=== PATIENT | female | born 1935 | race Caucasian/White ===

== ENCOUNTER 2016-08-25 12:52 | Inpatient (IN) | payer MEDICARE, OTHER ==
[~2016-08-25 12:52] MED LIST: ROCURONIUM BROMIDE INJ 50 MG/5 ML VIAL IV ONE
[2016-08-25] MEDS ORDERED: ACETAMINOPHEN 325 MG TABLET PO PRN (13:15)
[2016-08-25] MEDS ORDERED: IPRATROPIUM/ALBUTEROL 0.5-2.5 MG/3 ML AMPUL NEB ONE (13:21)
[2016-08-25] MEDS ORDERED: CEFEPIME 1 GM/D5W RTU 50 ML IV SCH (13:30)
--- NOTE | 2016-08-25 13:32 | PDOC H&P ---
History of Present Illness Admission Date/PCP: 08/25/16 12:52 CHRISTIAN SMITH MD Patient complains of: sob /hypoxia History of Present Illness: ANNA AMEZCUA is a 81 year old female This is a 81-year-old female came to the office today with a complaint of difficulty in breathing and cough and congestions since last couple of days since denied any fever patient also have a history of the bronchitis is and COPD currently see Dr. Hernandez also. Patient's in the office oxygen saturation is 72 on 2 L oxygen and increased up to 4 was up to the 88% and patient was of diffusely wheezing decided to admit in the hospital evaluation and treatment . 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 difficult other comorbidity think patient's get a benefit to admit in the hospital and IV antibiotic and IV steroid nebulizer treatment Past Medical History Cardiac Medical History: Reports: Hypertension Denies: Coronary Artery Disease, Myocardial Infarction Pulmonary Medical History: Reports: Asthma, Bronchitis, Chronic Obstructive Pulmonary Disease (COPD) Denies: Pneumonia Neurological Medical History: Denies: Seizures GI Medical History: Denies: Hepatitis Musculoskeltal Medical History: Reports: Arthritis - Osteo Psychiatric Medical History: Denies: Depression Hematology: Reports: Anemia Denies: Sickle Cell Disease Past Surgical History Past Surgical History: Denies: Amputation, Hysterectomy, Mastectomy, Pacemaker Social History Smoking Status: Former Smoker Frequency of Alcohol Use: None Hx Recreational Drug Use: No Drugs: None Hx Prescription Drug Abuse: No Family History Family History: Reviewed & Not Pertinent, Hypertension Parental Family History Reviewed: Yes Children Family History Reviewed: Yes Sibling(s) Family History Reviewed.: Yes Medication/Allergy Home Medications: Albuterol Sulfate [Albuterol Sulfate Hfa] 1 - 2 puff IH Q4 PRN 08/25/13 Aspirin [Aspirin 325 mg Tablet] 81 mg PO DAILY 08/25/13 Atorvastatin Calcium [Lipitor 80 mg Tablet] 40 mg PO QHS 08/25/13 Levetiracetam [Keppra 500 mg Tablet] 500 mg PO Q12 08/25/13 Montelukast Sodium [Singulair 10 mg Tablet] 10 mg PO QHS PRN 08/25/13 Omeprazole [Prilosec] 20 mg PO DAILY 08/25/13 Folic Acid/Multivit-Min/Lutein [Centrum Silver Chewable Tablet] 1 each PO DAILY 10/02/13 Acetaminophen [Tylenol 325 mg Tablet] 650 mg PO Q6HP PRN #0 tablet 10/04/13 Fluticasone/Salmeterol [Advair 500-50 Diskus 14 Dose/Diskus] 1 inh IH BID Sertraline HCl [Zoloft] 25 mg PO DAILY 01/23/14 Trazodone HCl [Desyrel 50 mg Tablet] 150 mg PO QHS 01/23/14 Allergies/Adverse Reactions: nitrofurantoin [Nitrofurantoin] Allergy (Severe, Verified 06/19/16 16:24) Hyperactivity povidone-iodine [From Betadine] Allergy (Severe, Verified 06/19/16 16:24) Blisters (topical iodine only) Soap [From Betadine] Allergy (Severe, Verified 06/19/16 16:24) Topical only-blisters gabapentin [From Neurontin] Allergy (Intermediate, Verified 06/19/16 16:24) Rash latex Allergy (Mild, Verified 06/19/16 16:24) metaxalone [From Skelaxin] Allergy (Mild, Verified 06/19/16 16:24) Review of Systems Constitutional: PRESENT: fatigue, weakness Cardiovascular: PRESENT: dyspnea on exertion Gastrointestinal: ABSENT: as per HPI, abdominal pain, bloating, coffee ground emesis, constipation, diarrhea, dysphagia, heartburn, hematemesis, hematochezia , melena, nausea, vomiting, other Genitourinary: ABSENT: as per HPI, difficulty urinating, dysuria, hematuria, nocturia, other Musculoskeletal: PRESENT: back pain Neurological: PRESENT: weakness. ABSENT: as per HPI, abnormal gait, abnormal movements, abnormal speech, confusion, convulsions, dizziness, focal weakness, frequent falls, lack of coordination, memory loss, numbness, paresthesias, restless legs, syncope, tingling, tremor(s), vertigo, other Psychiatric: PRESENT: anxiety, depression Physical Exam General appearance: PRESENT: mild distress Eye exam: PRESENT: PERRLA Mouth exam: PRESENT: neck supple Neck exam: ABSENT: carotid bruit, full ROM, JVD, lymphadenopathy, meningismus, tenderness, thyromegaly, tracheal deviation, tracheostomy, other Respiratory exam: PRESENT: decreased breath sounds, rhonchi, wheezes Cardiovascular exam: PRESENT: +S1, +S2 GI/Abdominal exam: PRESENT: normal bowel sounds, soft. ABSENT: tenderness Extremities exam: ABSENT: pedal edema Neurological exam: PRESENT: alert, awake, oriented to person, oriented to place Psychiatric exam: PRESENT: anxious Skin exam: PRESENT: dry Assessment & Plan - Diagnosis (1) COPD (chronic obstructive pulmonary disease) with acute bronchitis Is this a current diagnosis for this admission?: YesPlan: start neb/soulmedrol (3) Hypertension Qualifiers: Hypertension type: essential hypertension Qualified Code(s): I10 - Essential (primary) hypertension Is this a current diagnosis for this admission?: YesPlan: stable (4) Stroke Qualifiers: Laterality of affected vessel: unspecified Is this a current diagnosis for this admission?: YesPlan: stable (5) Hypoxia Is this a current diagnosis for this admission?: YesPlan: increse o2 (6) Respiratory distress Is this a current diagnosis for this admission?: YesPlan: consult pulmonary - Time Time Spent: 50 to 70 Minutes Medications reviewed and adjusted accordingly: Yes Anticipated discharge: Home - Inpatient Certification Medical Necessity: Significant Comorbidiites Make Outpatient Treatment Too Risky , Need Close Monitoring Due to Risk of Patient Decompensation, Need for IV Antibiotics Post Hospital Care: D/C Day Care Home Provider Documentation - Plan Summary Plan Summary: d/w pt and family and agree about to admit
[2016-08-25 14:07] LABS: HEMATOCRIT 35.8 % (36.0-47.0); HEMOGLOBIN 11.5 g/dL (12.0-15.5); HGB HCT DIFFERENCE -1.3; MEAN CORPUSCULAR HEMOGLOBIN 31.4 pg (27.0-33.4); MEAN CORPUSCULAR HGB CONC 32.1 g/dL (32.0-36.0); MEAN CORPUSCULAR VOLUME 98 fl (80-97); RED BLOOD COUNT 3.67 10^6/uL (3.72-5.28); RED CELL DISTRIBUTION WIDTH 13.8 % (11.5-14.0); WHITE BLOOD COUNT 6.8 10^3/uL (4.0-10.5)
[2016-08-25 14:29] LABS: ANION GAP 10 (5-19); BLOOD UREA NITROGEN 16 mg/dL (7-20); CALCIUM 9.4 mg/dL (8.4-10.2); CARBON DIOXIDE 35 mmol/L (22-30); CHLORIDE 92 mmol/L (98-107); CREATININE RESULT 0.49 mg/dL (0.52-1.25); GLUCOSE 165 mg/dL (75-110); POTASSIUM 4.2 mmol/L (3.6-5.0); SODIUM 136.8 mmol/L (137-145)
[2016-08-25 14:50] LABS: BAND NEUTROPHILS % (MANUAL) 1 % (3-5); BASOPHILS % (MANUAL) 1 % (0-2); EOSINOPHILS % (MANUAL) 0 % (0-6); LYMPHOCYTES % (MANUAL) 6 % (13-45); POLYCHROMASIA SLIGHT; TOTAL CELLS COUNTED 100; TOXIC GRANULATION SLIGHT
[2016-08-25] MEDS ORDERED: NYSTATIN TOPICAL POWDER 15 GM TOP PRN (15:38)
[2016-08-25] MEDS ORDERED: BENZONATATE 100 MG CAPSULE PO PRN (15:38)
[2016-08-25] MEDS ORDERED: DOCUSATE SODIUM 100 MG CAPSULE PO PRN (15:38)
[2016-08-25] MEDS ORDERED: (PENDING PHARMACY ID) (Diclofenac Sodium [Voltaren] 4 GM) TOP SCH ×2 (15:45→18:00)
[2016-08-25] MEDS: IPRATROPIUM/ALBUTEROL 0.5-2.5 MG/3 ML AMPUL NEB SCH ×2 (16:44→22:10)
[2016-08-25] MEDS ORDERED: LANSOPRAZOLE 30 MG TAB.RAP.DR PO SCH (18:00)
[2016-08-25] MEDS ORDERED: DOCUSATE SODIUM 100 MG/10 ML UDC PO SCH (18:00)
[2016-08-25] MEDS ORDERED: LEVOFLOXACIN 500 MG/D5W RTU 500 MG/100 ML RTUPB IV ONE (18:00)
[2016-08-25] MEDS: METHYLPREDNISOLONE INJ 40 MG/1 ML SDV IV SCH ×2 (18:11→22:54)
[2016-08-25] MEDS: CEFEPIME HCL 2 GM in DEXTROSE 5%-WATER 50 ML IV SCH (18:12)
[2016-08-25] MEDS: FLUTICASONE/SALMETEROL DISKUS 500-50 MCG/DOSE IH SCH (18:12)
[2016-08-25] MEDS: DOCUSATE SODIUM 100 MG CAPSULE PO SCH (18:15)
--- NOTE | 2016-08-25 18:17 | PDOC CONSULTATION ---
History of Present Illness Admission Date/PCP: 08/25/16 13:15 CHRISTIAN SMITH MD History of Present Illness: 81 YO female patient with a history of COPD with chronic respiratory failure on home continuous oxygen at 3L. She is known to our clinic. She was seen by her PCP today and was found to be hypoxic with severe shortness of breath. Patient and family reports acute worsening of shortness of breath yesterday evening. In Dr. office O2 level down to 70% on prescribed 3L, she was direct admitted to 5th floor. Reports worsening of "wet"cough over the last two days, no change in color of phlegm. No reports of fever or sick contacts. CXR completed on admission with no acute infiltrates. Past Medical History Cardiac Medical History: Reports: Hypertension Denies: Coronary Artery Disease, Myocardial Infarction Pulmonary Medical History: Reports: Asthma, Bronchitis, Chronic Obstructive Pulmonary Disease (COPD) Denies: Pneumonia Neurological Medical History: Denies: Seizures GI Medical History: Denies: Hepatitis Musculoskeltal Medical History: Reports: Arthritis - Osteo Psychiatric Medical History: Denies: Depression Hematology: Reports: Anemia Denies: Sickle Cell Disease Past Surgical History Past Surgical History: Denies: Amputation, Hysterectomy, Mastectomy, Pacemaker Social History Smoking Status: Former Smoker Number of Years Smokin Frequency of Alcohol Use: None Hx Recreational Drug Use: No Drugs: None Hx Prescription Drug Abuse: No Family History Family History: Reviewed & Not Pertinent, Hypertension Parental Family History Reviewed: Yes Children Family History Reviewed: Yes Sibling(s) Family History Reviewed.: Yes Medication/Allergy Home Medications: Aspirin [Aspirin 81 mg Chewable Tablet] 81 mg PO DAILY 08/25/16 Benzonatate [Tessalon Perles 100 mg Capsule] 100 mg PO TIDP PRN 08/25/16 Diclofenac Sodium [Voltaren] 4 gm TOP BID 08/25/16 Docusate Sodium [Colace 100 mg Capsule] 300 mg PO DAILYP PRN 08/25/16 Fluticasone/Salmeterol [Advair 500-50 Diskus 14 Dose/Diskus] 1 puff IH BID 08/25 Folic Acid/Multivit-Min/Lutein [Centrum Silver Chewable Tablet] 1 each PO DAILY 08/25/16 Lactobacillus Acidophilus [Acidophilus] 1 each PO DAILY 08/25/16 Levetiracetam [Keppra 500 mg Tablet] 500 mg PO Q12 08/25/16 Montelukast Sodium [Singulair] 10 mg PO QHS 08/25/16 Nystatin [Mycostatin Topical Powder 15 gm] 1 applic TOP BIDP PRN 08/25/16 Omeprazole 40 mg PO BID 08/25/16 Sertraline HCl [Zoloft] 100 mg PO DAILY 08/25/16 Tiotropium Miracle [Spiriva Handihaler 5 Cap/Kit (18 Mcg/Cap)] 1 cap IH DAILY Trazodone HCl [Desyrel] 150 mg PO QHS 08/25/16 Allergies/Adverse Reactions: nitrofurantoin [Nitrofurantoin] Allergy (Severe, Verified 06/19/16 16:24) Hyperactivity povidone-iodine [From Betadine] Allergy (Severe, Verified 06/19/16 16:24) Blisters (topical iodine only) Soap [From Betadine] Allergy (Severe, Verified 06/19/16 16:24) Topical only-blisters gabapentin [From Neurontin] Allergy (Intermediate, Verified 06/19/16 16:24) Rash latex Allergy (Mild, Verified 06/19/16 16:24) metaxalone [From Skelaxin] Allergy (Mild, Verified 06/19/16 16:24) Review of Systems Constitutional: PRESENT: weakness Eyes: ABSENT: visual disturbances Ears: ABSENT: hearing changes Nose, Mouth, and Throat: ABSENT: headache(s) Cardiovascular: ABSENT: chest pain Respiratory: PRESENT: cough Gastrointestinal: ABSENT: abdominal pain Neurological: PRESENT: weakness Physical Exam Vital Signs: Temp Pulse Resp BP Pulse Ox 97.4 F 94 24 H 174/86 H 97 08/25/16 13:28 08/25/16 16:42 08/25/16 16:42 08/25/16 13:28 08/25/16 16:42 Intake & Output 08/24/16 08/25/16 08/26/16 06:59 06:59 06:59 Weight 62.6 kg General appearance: PRESENT: severe distress, thin Head exam: PRESENT: atraumatic Eye exam: PRESENT: PERRLA Ear exam: PRESENT: normal external ear exam Mouth exam: PRESENT: moist, tongue midline Neck exam: PRESENT: full ROM Respiratory exam: PRESENT: accessory muscle use, crackles, prolonged expiratory phas, tachypnea - 40+ respirations, other - labored breathing Cardiovascular exam: PRESENT: RRR, tachycardia, other - Frequent PVC's Pulses: PRESENT: normal radial pulses Vascular exam: PRESENT: pallor GI/Abdominal exam: PRESENT: normal bowel sounds Musculoskeletal exam: PRESENT: full ROM Neurological exam: PRESENT: oriented to person, oriented to place, oriented to time, oriented to situation Results Laboratory Results: 08/25/16 13:49 08/25/16 13:49 08/25/16 08/25/16 13:49 13:49 WBC 6.8 RBC 3.67 L Hgb 11.5 L Hct 35.8 L MCV 98 H MCH 31.4 MCHC 32.1 RDW 13.8 Plt Count 159 Seg Neutrophils % Not Reportable Lymphocytes % Not Reportable Monocytes % Not Reportable Eosinophils % Not Reportable Basophils % Not Reportable Absolute Neutrophils Not Reportable Absolute Lymphocytes Not Reportable Absolute Monocytes Not Reportable Absolute Eosinophils Not Reportable Absolute Basophils Not Reportable Sodium 136.8 L Potassium 4.2 Chloride 92 L Carbon Dioxide 35 H Anion Gap 10 BUN 16 Creatinine 0.49 L Est GFR ( Amer) > 60 Est GFR (Non-Af Amer) > 60 Glucose 165 H Calcium 9.4 Impressions: Chest X-Ray 08/25/16 00:00 IMPRESSION: COPD. A component of vascular congestion cannot be excluded. Assessment & Plan - Diagnosis (1) Pseudomonas pneumonia Is this a current diagnosis for this admission?: Yes (2) COPD (chronic obstructive pulmonary disease) with acute bronchitis Is this a current diagnosis for this admission?: YesPlan: Continue with scheduled nebulized breathing treatments, IV solu-medrol, and antibiotics. Acetylcysteine to help with secretion mobilization ordered. Order for sputum culture has been placed, obtain as soon able. (3) Respiratory distress Is this a current diagnosis for this admission?: YesPlan: Patient with severe tachypnea, tachycardia with frequent PVC's, and hypoxic on 3L. Spoke with Dr. Smith (admitting) and feel that patient would benefit from transfer to higher level of care on IMCU. Order for STAT ABG and will place patient on BIPAP.
[2016-08-25 18:36] LABS: ARTERIAL BLOOD O2 SATURATION 95.8 % (94-98)
[2016-08-25 21:01] LABS: ARTERIAL BLOOD BASE EXCESS 5.9 mmol/L; ARTERIAL BLOOD O2 SATURATION 99.1 % (94-98)
[2016-08-25] MEDS ORDERED: PROPOFOL INJ 200 MG/20 ML VIAL IV ONE (21:39)
[2016-08-25] MEDS ORDERED: TRAZODONE HCL 50 MG TABLET PO SCH (22:00)
[2016-08-25] MEDS ORDERED: MONTELUKAST SODIUM 10 MG TABLET PO SCH (22:00)
[2016-08-25] MEDS ORDERED: PROPOFOL 100 ML IV ONE (22:00)
[2016-08-25] MEDS ORDERED: (PENDING PHARMACY ID) (Trazodone Hcl [Desyrel] 150 MG) PO SCH (22:00)
[2016-08-25] MEDS ORDERED: LEVETIRACETAM 500 MG TABLET PO SCH (22:00)
[2016-08-25] MEDS: ACETYLCYSTEINE 10% NEB 400 MG/4 ML VIAL NEB SCH (22:10)
[2016-08-25] MEDS: LEVETIRACETAM 500 MG/NACL-ISO 100 ML IV SCH (22:56)
[2016-08-25] MEDS: PROPOFOL 100 ML IV PRN (22:59)
[2016-08-25 23:19] LABS: ARTERIAL BLOOD BASE EXCESS 2.8 mmol/L; ARTERIAL BLOOD O2 SATURATION 98.5 % (94-98)
[2016-08-26] MEDS: ACETYLCYSTEINE 10% NEB 400 MG/4 ML VIAL NEB SCH ×4 (02:59→21:05)
[2016-08-26] MEDS: PROPOFOL 100 ML IV PRN ×4 (03:18→20:30)
[2016-08-26 04:18] LABS: HEMATOCRIT 32.6 % (36.0-47.0); HEMOGLOBIN 10.3 g/dL (12.0-15.5); HGB HCT DIFFERENCE -1.7; MEAN CORPUSCULAR HEMOGLOBIN 30.8 pg (27.0-33.4); MEAN CORPUSCULAR HGB CONC 31.6 g/dL (32.0-36.0); MEAN CORPUSCULAR VOLUME 98 fl (80-97); RED BLOOD COUNT 3.35 10^6/uL (3.72-5.28); RED CELL DISTRIBUTION WIDTH 13.8 % (11.5-14.0); WHITE BLOOD COUNT 4.2 10^3/uL (4.0-10.5)
[2016-08-26 04:34] LABS: ALANINE AMINOTRANSFERASE 36 U/L (9-52); ALBUMIN 3.1 g/dL (3.5-5.0); ALKALINE PHOSPHATASE 54 U/L (38-126); ANION GAP 8 (5-19); ASPARTATE AMINO TRANSFERASE 32 U/L (14-36); BILIRUBIN,TOTAL 0.3 mg/dL (0.2-1.3); BLOOD UREA NITROGEN 18 mg/dL (7-20); CALCIUM 9.1 mg/dL (8.4-10.2); CARBON DIOXIDE 33 mmol/L (22-30); CHLORIDE 96 mmol/L (98-107); GLUCOSE 117 mg/dL (75-110); POTASSIUM 4.9 mmol/L (3.6-5.0); SODIUM 136.6 mmol/L (137-145); TOTAL PROTEIN 5.5 g/dL (6.3-8.2)
[2016-08-26 04:41] LABS: BASOPHILS % (MANUAL) 0 % (0-2); EOSINOPHILS % (MANUAL) 0 % (0-6); LYMPHOCYTES % (MANUAL) 6 % (13-45); TOTAL CELLS COUNTED 100
[2016-08-26 04:43] LABS: RBC MORPHOLOGY COMMENT NORMO-CYTIC/CHROMIC; TOXIC GRANULATION 1+
[2016-08-26 05:45] LABS: ARTERIAL BLOOD BASE EXCESS 1.2 mmol/L; ARTERIAL BLOOD O2 SATURATION 98.8 % (94-98)
[2016-08-26] MEDS: METHYLPREDNISOLONE INJ 40 MG/1 ML SDV IV SCH ×3 (05:48→21:43)
[2016-08-26] MEDS: ENOXAPARIN SODIUM INJ 40 MG/0.4 ML DISP.SYRIN SUBCUT SCH (08:24)
[2016-08-26] MEDS: IPRATROPIUM/ALBUTEROL 0.5-2.5 MG/3 ML AMPUL NEB SCH ×3 (08:31→21:06)
--- NOTE | 2016-08-26 08:35 | PDOC PROGRESS REPORT ---
Subjective Progress Note for:: 08/26/16 Subjective:: Patient's was on more respiratory distress last night and was intubated and sedated to the intensive care unit and seen by Dr. Hernandez. Is currently alert awake denied any chest pain currently on intubations. No other events happen ICU nurses that site Physical Exam Vital Signs: Temp Pulse Resp BP Pulse Ox 96.7 F L 59 L 16 125/70 100 08/26/16 08:00 08/26/16 08:00 08/26/16 08:00 08/26/16 08:00 08/26/16 08:00 Intake & Output 08/25/16 08/26/16 08/27/16 06:59 06:59 06:59 Intake Total 570 Output Total 585 50 Balance -15 -50 Weight 60.7 kg General appearance: PRESENT: no acute distress Head exam: PRESENT: normocephalic Mouth exam: PRESENT: neck supple Respiratory exam: PRESENT: clear to auscultation esperanza Additional comments: Currently intubated Cardiovascular exam: PRESENT: +S1, +S2 GI/Abdominal exam: PRESENT: normal bowel sounds, soft Extremities exam: ABSENT: pedal edema Neurological exam: PRESENT: alert, awake Psychiatric exam: PRESENT: anxious Results Laboratory Results: 08/26/16 04:04 08/26/16 04:04 08/25/16 08/25/16 08/25/16 13:49 13:49 18:11 WBC 6.8 RBC 3.67 L Hgb 11.5 L Hct 35.8 L MCV 98 H MCH 31.4 MCHC 32.1 RDW 13.8 Plt Count 159 Seg Neutrophils % Not Reportable Lymphocytes % Not Reportable Monocytes % Not Reportable Eosinophils % Not Reportable Basophils % Not Reportable Absolute Neutrophils Not Reportable Absolute Lymphocytes Not Reportable Absolute Monocytes Not Reportable Absolute Eosinophils Not Reportable Absolute Basophils Not Reportable Carbonic Acid 2.02 H HCO3/H2CO3 Ratio 16:1 ABG pH 7.32 L ABG pCO2 67.0 H ABG pO2 88.7 ABG HCO3 34.1 H ABG O2 Saturation 95.8 ABG Base Excess 6.0 FiO2 3 L Sodium 136.8 L Potassium 4.2 Chloride 92 L Carbon Dioxide 35 H Anion Gap 10 BUN 16 Creatinine 0.49 L Est GFR ( Amer) > 60 Est GFR (Non-Af Amer) > 60 Glucose 165 H Calcium 9.4 Total Bilirubin AST ALT Alkaline Phosphatase Total Protein Albumin 08/25/16 08/25/16 08/26/16 20:54 22:37 04:04 WBC 4.2 RBC 3.35 L Hgb 10.3 L Hct 32.6 L MCV 98 H MCH 30.8 MCHC 31.6 L RDW 13.8 Plt Count 122 L Seg Neutrophils % Not Reportable Lymphocytes % Not Reportable Monocytes % Not Reportable Eosinophils % Not Reportable Basophils % Not Reportable Absolute Neutrophils Not Reportable Absolute Lymphocytes Not Reportable Absolute Monocytes Not Reportable Absolute Eosinophils Not Reportable Absolute Basophils Not Reportable Carbonic Acid 1.84 H 1.78 H HCO3/H2CO3 Ratio 17:1 16:1 ABG pH 7.35 7.32 L ABG pCO2 61.1 H 59.2 H ABG pO2 175.8 H 139.1 H ABG HCO3 33.1 H 29.9 H ABG O2 Saturation 99.1 H 98.5 H ABG Base Excess 5.9 2.8 FiO2 40% 35% Sodium Potassium Chloride Carbon Dioxide Anion Gap BUN Creatinine Est GFR ( Amer) Est GFR (Non-Af Amer) Glucose Calcium Total Bilirubin AST ALT Alkaline Phosphatase Total Protein Albumin 08/26/16 08/26/16 04:04 05:25 WBC RBC Hgb Hct MCV MCH MCHC RDW Plt Count Seg Neutrophils % Lymphocytes % Monocytes % Eosinophils % Basophils % Absolute Neutrophils Absolute Lymphocytes Absolute Monocytes Absolute Eosinophils Absolute Basophils Carbonic Acid 1.61 H HCO3/H2CO3 Ratio 17:1 ABG pH 7.34 L ABG pCO2 53.4 H ABG pO2 150.5 H ABG HCO3 27.8 H ABG O2 Saturation 98.8 H ABG Base Excess 1.2 FiO2 50% Sodium 136.6 L Potassium 4.9 Chloride 96 L Carbon Dioxide 33 H Anion Gap 8 BUN 18 Creatinine 0.60 Est GFR ( Amer) > 60 Est GFR (Non-Af Amer) > 60 Glucose 117 H Calcium 9.1 Total Bilirubin 0.3 AST 32 ALT 36 Alkaline Phosphatase 54 Total Protein 5.5 L Albumin 3.1 L Impressions: Chest X-Ray 08/26/16 06:00 IMPRESSION: No significant interval change. Findings as noted above Assessment & Plan - Diagnosis (1) COPD (chronic obstructive pulmonary disease) with acute bronchitis Is this a current diagnosis for this admission?: YesPlan: Continuous IV Solu-Medrol and nebulizer treatment (2) Bacterial pneumonia Plan: IV antibiotic (3) Hypertension Qualifiers: Hypertension type: essential hypertension Qualified Code(s): I10 - Essential (primary) hypertension Is this a current diagnosis for this admission?: YesPlan: stable (4) Stroke Qualifiers: Laterality of affected vessel: unspecified Is this a current diagnosis for this admission?: YesPlan: stable (5) Hypoxia Is this a current diagnosis for this admission?: YesPlan: increse o2 (6) Respiratory distress Is this a current diagnosis for this admission?: YesPlan: Currently intubated intensive care unit follow with the pulmonary - Time Time Spent with patient: 25-34 minutes Critical Time spent with patient: 15-24 minutes Medications reviewed and adjusted accordingly: Yes Anticipated discharge: Home - Inpatient Certification Medical Necessity: Need Close Monitoring Due to Risk of Patient Decompensation, Need For IV Fluids, Need for IV Antibiotics Post Hospital Care: D/C Front Office Manager Documentation - Plan Summary Plan Summary: Continues ICU protocol and continues to IV antibiotic and continues to follow with the pulmonary. Discussed with family patient's current conditions
[2016-08-26] MEDS ORDERED: ASPIRIN 81 MG TABLET, CHEWABLE PO SCH (10:00)
[2016-08-26] MEDS ORDERED: (PENDING PHARMACY ID) (Lactobacillus Acidophilus [Acidophilus] 1 EACH) PO SCH (10:00)
[2016-08-26] MEDS ORDERED: (PENDING PHARMACY ID) (Folic Acid/Multivit-Min/Lutein [Centrum Silver Chewable Tablet] 1 E PO SCH (10:00)
[2016-08-26] MEDS ORDERED: LACTOBACILLUS ACIDOPHILUS 250 MG TAB PO SCH (10:00)
[2016-08-26] MEDS ORDERED: MULTIVITAMINS W-IRON TABLET, CHEWABLE PO SCH (10:00)
[2016-08-26] MEDS ORDERED: SERTRALINE HCL 50 MG TABLET PO SCH (10:00)
[2016-08-26] MEDS: LEVETIRACETAM 500 MG/NACL-ISO 100 ML IV SCH ×2 (11:09→21:43)
[2016-08-26] MEDS: PANTOPRAZOLE SODIUM 40 MG VIAL IV SCH (11:10)
[2016-08-26] MEDS: FLUTICASONE/SALMETEROL DISKUS 500-50 MCG/DOSE IH SCH ×2 (11:23→18:17)
[2016-08-26] MEDS: TIOTROPIUM BROMIDE DPI 5 CAP/KIT (18 MCG/CAP) IH SCH (11:23)
[2016-08-26] MEDS: DOCUSATE SODIUM 100 MG CAPSULE PO SCH ×2 (11:23→18:17)
[2016-08-26] MEDS ORDERED: ACETAMINOPHEN 325 MG TABLET NG PRN (11:44)
[2016-08-26] MEDS ORDERED: DEXAMETHASONE SOD PHOS INJ 10 MG/1 ML VIAL IV ONE (12:00)
[2016-08-26] MEDS ORDERED: ALPRAZOLAM 0.25 MG TABLET PO PRN (14:18)
--- NOTE | 2016-08-26 14:57 | EKG REPORT ---
SEVERITY:- ABNORMAL ECG - SINUS TACHYCARDIA MULTIFORM VENTRICULAR PREMATURE COMPLEXES : Confirmed by: Yuli Anand MD 26-Aug-2016 14:56:30
[2016-08-26] MEDS ORDERED: ALPRAZOLAM 0.25 MG TABLET NG PRN (15:10)
[2016-08-26] MEDS: CEFEPIME HCL 2 GM in DEXTROSE 5%-WATER 50 ML IV SCH (15:16)
--- NOTE | 2016-08-26 16:04 | Physician Advisory Note ---
Physician Advisor ProgressNote .: Pursuant to the plan for [facility], I have reviewed the medical record for this patient. Physician Advisor Statement: Possible documentation opportunities if attending agrees: 1. "Acute Hypoxemic Respiratory Failure with labored breathing & O2 sats 80s on RA, due to Pneumonia, present on adm" - Ex: O2 sat 80% on RA & labored breathing at 13:26 on 08/25. 2. "Suspected Pneumonia of ___ lobe(s), suspect [gram-negative, given underlying COPD...?]" 3. "" 4. "" 5. "" As always, if concerned about any unstable VS or abnormal labs, please comment on them & note what doing about them, & please document each day the potential clinical problems you are concerned could occur if pt not kept in hospital for tx at this time. Thanks for your help with documentation accuracy/specificity improvement! Naomi Ayers MD [facility] Physician Advisor, Fellow of Hospital Medicine
--- NOTE | 2016-08-26 17:06 | PDOC PROGRESS REPORT ---
Subjective Subjective:: Patient is now intubated and sedated in ICU. Will awake with arousal and follow commands. With stimuli patient becomes anxious with increase in respirations and heart rate. Low grade fever. Pending sputum and blood cultures. Physical Exam Vital Signs: Temp Pulse Resp BP Pulse Ox 96.7 F L 59 L 16 125/70 100 08/26/16 08:00 08/26/16 08:00 08/26/16 08:00 08/26/16 08:00 08/26/16 08:00 Intake & Output 08/25/16 08/26/16 08/27/16 06:59 06:59 06:59 Intake Total 570 Output Total 585 50 Balance -15 -50 Weight 60.7 kg Results Laboratory Results: 08/26/16 04:04 08/26/16 04:04 08/25/16 08/25/16 08/25/16 13:49 13:49 18:11 WBC 6.8 RBC 3.67 L Hgb 11.5 L Hct 35.8 L MCV 98 H MCH 31.4 MCHC 32.1 RDW 13.8 Plt Count 159 Seg Neutrophils % Not Reportable Lymphocytes % Not Reportable Monocytes % Not Reportable Eosinophils % Not Reportable Basophils % Not Reportable Absolute Neutrophils Not Reportable Absolute Lymphocytes Not Reportable Absolute Monocytes Not Reportable Absolute Eosinophils Not Reportable Absolute Basophils Not Reportable Carbonic Acid 2.02 H HCO3/H2CO3 Ratio 16:1 ABG pH 7.32 L ABG pCO2 67.0 H ABG pO2 88.7 ABG HCO3 34.1 H ABG O2 Saturation 95.8 ABG Base Excess 6.0 FiO2 3 L Sodium 136.8 L Potassium 4.2 Chloride 92 L Carbon Dioxide 35 H Anion Gap 10 BUN 16 Creatinine 0.49 L Est GFR ( Amer) > 60 Est GFR (Non-Af Amer) > 60 Glucose 165 H Calcium 9.4 Total Bilirubin AST ALT Alkaline Phosphatase Total Protein Albumin 08/25/16 08/25/16 08/26/16 20:54 22:37 04:04 WBC 4.2 RBC 3.35 L Hgb 10.3 L Hct 32.6 L MCV 98 H MCH 30.8 MCHC 31.6 L RDW 13.8 Plt Count 122 L Seg Neutrophils % Not Reportable Lymphocytes % Not Reportable Monocytes % Not Reportable Eosinophils % Not Reportable Basophils % Not Reportable Absolute Neutrophils Not Reportable Absolute Lymphocytes Not Reportable Absolute Monocytes Not Reportable Absolute Eosinophils Not Reportable Absolute Basophils Not Reportable Carbonic Acid 1.84 H 1.78 H HCO3/H2CO3 Ratio 17:1 16:1 ABG pH 7.35 7.32 L ABG pCO2 61.1 H 59.2 H ABG pO2 175.8 H 139.1 H ABG HCO3 33.1 H 29.9 H ABG O2 Saturation 99.1 H 98.5 H ABG Base Excess 5.9 2.8 FiO2 40% 35% Sodium Potassium Chloride Carbon Dioxide Anion Gap BUN Creatinine Est GFR ( Amer) Est GFR (Non-Af Amer) Glucose Calcium Total Bilirubin AST ALT Alkaline Phosphatase Total Protein Albumin 08/26/16 08/26/16 04:04 05:25 WBC RBC Hgb Hct MCV MCH MCHC RDW Plt Count Seg Neutrophils % Lymphocytes % Monocytes % Eosinophils % Basophils % Absolute Neutrophils Absolute Lymphocytes Absolute Monocytes Absolute Eosinophils Absolute Basophils Carbonic Acid 1.61 H HCO3/H2CO3 Ratio 17:1 ABG pH 7.34 L ABG pCO2 53.4 H ABG pO2 150.5 H ABG HCO3 27.8 H ABG O2 Saturation 98.8 H ABG Base Excess 1.2 FiO2 50% Sodium 136.6 L Potassium 4.9 Chloride 96 L Carbon Dioxide 33 H Anion Gap 8 BUN 18 Creatinine 0.60 Est GFR ( Amer) > 60 Est GFR (Non-Af Amer) > 60 Glucose 117 H Calcium 9.1 Total Bilirubin 0.3 AST 32 ALT 36 Alkaline Phosphatase 54 Total Protein 5.5 L Albumin 3.1 L Impressions: Chest X-Ray 08/26/16 06:00 IMPRESSION: No significant interval change. Findings as noted above Assessment & Plan - Diagnosis (1) Pseudomonas pneumonia Is this a current diagnosis for this admission?: Yes (2) Respiratory distress Is this a current diagnosis for this admission?: Yes (3) COPD (chronic obstructive pulmonary disease) with acute bronchitis Is this a current diagnosis for this admission?: YesPlan: Continue with scheduled high dose IV steroids, broad specrum antibiotics with good gram negative coverage, and scheduled breathing treatments. Weaning trials as tolerated. Blood gas and CXR each AM.
[2016-08-26] MEDS: NORMAL SALINE 1000 ML 1,000 ML IV PRN (17:39)
[2016-08-26] MEDS ORDERED: LEVOFLOXACIN 250 MG/D5W RTU 250 MG/50 ML RTUPB IV SCH (18:00)
[2016-08-26] MEDS: BUDESONIDE NEB 0.5 MG/2 ML AMPUL NEB SCH (21:06)
[2016-08-26] MEDS: TRAZODONE HCL 50 MG TABLET NG SCH (21:44)
[2016-08-26] MEDS: MONTELUKAST SODIUM 10 MG TABLET NG SCH (21:44)
[2016-08-27] MEDS: PROPOFOL 100 ML IV PRN ×4 (00:36→22:08)
[2016-08-27] MEDS: IPRATROPIUM/ALBUTEROL 0.5-2.5 MG/3 ML AMPUL NEB SCH ×5 (02:18→19:52)
[2016-08-27] MEDS: ACETYLCYSTEINE 10% NEB 400 MG/4 ML VIAL NEB SCH ×4 (02:18→19:52)
[2016-08-27] MEDS: NORMAL SALINE 1000 ML 1,000 ML IV PRN (04:35)
[2016-08-27 05:00] LABS: HEMATOCRIT 32.5 % (36.0-47.0); HEMOGLOBIN 10.5 g/dL (12.0-15.5); MEAN CORPUSCULAR HEMOGLOBIN 31.4 pg (27.0-33.4); MEAN CORPUSCULAR HGB CONC 32.2 g/dL (32.0-36.0); MEAN CORPUSCULAR VOLUME 98 fl (80-97); RED BLOOD COUNT 3.33 10^6/uL (3.72-5.28); RED CELL DISTRIBUTION WIDTH 14.3 % (11.5-14.0); WHITE BLOOD COUNT 4.7 10^3/uL (4.0-10.5)
[2016-08-27 05:11] LABS: ALANINE AMINOTRANSFERASE 31 U/L (9-52); ALBUMIN 3.2 g/dL (3.5-5.0); ALKALINE PHOSPHATASE 50 U/L (38-126); ANION GAP 8 (5-19); ASPARTATE AMINO TRANSFERASE 31 U/L (14-36); BILIRUBIN,TOTAL 0.3 mg/dL (0.2-1.3); BLOOD UREA NITROGEN 23 mg/dL (7-20); CALCIUM 9.1 mg/dL (8.4-10.2); CARBON DIOXIDE 30 mmol/L (22-30); CHLORIDE 99 mmol/L (98-107); GLUCOSE 121 mg/dL (75-110); MAGNESIUM 2.3 mg/dL (1.6-2.3); POTASSIUM 4.6 mmol/L (3.6-5.0); SODIUM 136.6 mmol/L (137-145); TOTAL PROTEIN 5.7 g/dL (6.3-8.2); TRIGLYCERIDES 64 mg/dL (<150)
[2016-08-27] MEDS: METHYLPREDNISOLONE INJ 40 MG/1 ML SDV IV SCH ×3 (05:30→22:08)
[2016-08-27 05:33] LABS: BAND NEUTROPHILS % (MANUAL) 1 % (3-5); BASOPHILS % (MANUAL) 0 % (0-2); EOSINOPHILS % (MANUAL) 0 % (0-6); LYMPHOCYTES % (MANUAL) 9 % (13-45); TOTAL CELLS COUNTED 100
[2016-08-27 05:34] LABS: PROTHROMBIN TIME 14.8 SEC (11.4-15.4); RBC MORPHOLOGY COMMENT NORMO-CYTIC/CHROMIC; TOXIC VACUOLATION PRESENT
[2016-08-27 05:46] LABS: ARTERIAL BLOOD BASE EXCESS 4.9 mmol/L; ARTERIAL BLOOD O2 SATURATION 96.6 % (94-98)
[2016-08-27] MEDS: ENOXAPARIN SODIUM INJ 40 MG/0.4 ML DISP.SYRIN SUBCUT SCH (07:52)
[2016-08-27] MEDS: BUDESONIDE NEB 0.5 MG/2 ML AMPUL NEB SCH ×2 (08:05→19:52)
[2016-08-27] MEDS: LEVETIRACETAM 500 MG/NACL-ISO 100 ML IV SCH ×2 (09:17→22:09)
[2016-08-27] MEDS: ASPIRIN 81 MG TABLET, CHEWABLE NG SCH (09:18)
[2016-08-27] MEDS: LACTOBACILLUS ACIDOPHILUS 250 MG TAB NG SCH (09:18)
[2016-08-27] MEDS: MULTIVITAMINS W-IRON TABLET, CHEWABLE NG SCH (09:18)
[2016-08-27] MEDS: SERTRALINE HCL 50 MG TABLET NG SCH (09:18)
[2016-08-27] MEDS: TIOTROPIUM BROMIDE DPI 5 CAP/KIT (18 MCG/CAP) IH SCH (09:19)
[2016-08-27] MEDS: PANTOPRAZOLE SODIUM 40 MG VIAL IV SCH (09:19)
[2016-08-27] MEDS: FLUTICASONE/SALMETEROL DISKUS 500-50 MCG/DOSE IH SCH ×2 (09:19→17:49)
[2016-08-27] MEDS: DOCUSATE SODIUM 100 MG CAPSULE PO SCH ×2 (09:19→17:49)
[2016-08-27] MEDS ORDERED: ALPRAZOLAM 0.25 MG TABLET NG SCH (10:00)
[2016-08-27] MEDS: ALPRAZOLAM 0.5 MG TABLET NG SCH (17:48)
--- NOTE | 2016-08-27 17:49 | PDOC PROGRESS REPORT ---
Subjective Progress Note for:: 08/27/16 Subjective:: pt is doingsame try to wean off vent but fail pt denied any chest pain no sob on bed site Physical Exam Vital Signs: Temp Pulse Resp BP Pulse Ox 98.2 F 85 14 88/51 L 98 08/27/16 16:00 08/27/16 16:35 08/27/16 16:35 08/27/16 16:00 08/27/16 16:35 Intake & Output 08/26/16 08/27/16 08/28/16 06:59 06:59 06:59 Intake Total 570 1769 Output Total 585 1100 435 Balance -15 669 -435 Weight 60.7 kg 64.8 kg Physical Exam: intubated but alert and awake General appearance: PRESENT: no acute distress Head exam: PRESENT: normocephalic Mouth exam: PRESENT: neck supple Respiratory exam: PRESENT: clear to auscultation esperanza Cardiovascular exam: PRESENT: +S1, +S2 GI/Abdominal exam: PRESENT: normal bowel sounds, soft Extremities exam: ABSENT: pedal edema Neurological exam: PRESENT: alert, awake Psychiatric exam: PRESENT: anxious Results Laboratory Results: 08/27/16 04:21 08/27/16 04:21 08/27/16 08/27/16 08/27/16 04:21 04:21 05:20 WBC 4.7 RBC 3.33 L Hgb 10.5 L Hct 32.5 L MCV 98 H MCH 31.4 MCHC 32.2 RDW 14.3 H Plt Count 124 L Seg Neutrophils % Not Reportable Lymphocytes % Not Reportable Monocytes % Not Reportable Eosinophils % Not Reportable Basophils % Not Reportable Absolute Neutrophils Not Reportable Absolute Lymphocytes Not Reportable Absolute Monocytes Not Reportable Absolute Eosinophils Not Reportable Absolute Basophils Not Reportable Carbonic Acid 1.83 H HCO3/H2CO3 Ratio 17:1 ABG pH 7.34 L ABG pCO2 60.9 H ABG pO2 93.7 ABG HCO3 32.4 H ABG O2 Saturation 96.6 ABG Base Excess 4.9 FiO2 40% Sodium 136.6 L Potassium 4.6 Chloride 99 Carbon Dioxide 30 Anion Gap 8 BUN 23 H Creatinine 0.50 L Est GFR ( Amer) > 60 Est GFR (Non-Af Amer) > 60 Glucose 121 H Calcium 9.1 Magnesium 2.3 Total Bilirubin 0.3 AST 31 ALT 31 Alkaline Phosphatase 50 Total Protein 5.7 L Albumin 3.2 L Triglycerides 64 08/27/16 04:21 NT-Pro-B Natriuret Pep 412 Impressions: Chest X-Ray 08/27/16 06:00 IMPRESSION: Endotracheal and nasogastric tubes in good positioning Obstructive lung disease with mild increased interstitial markings at the bases. No dense consolidation worrisome for pneumonia Assessment & Plan - Diagnosis (1) COPD (chronic obstructive pulmonary disease) with acute bronchitis Is this a current diagnosis for this admission?: YesPlan: Continuous IV Solu-Medrol and nebulizer treatment (2) Bacterial pneumonia Plan: IV antibiotic (3) Hypertension Qualifiers: Hypertension type: essential hypertension Qualified Code(s): I10 - Essential (primary) hypertension Is this a current diagnosis for this admission?: YesPlan: stable (4) Stroke Qualifiers: Laterality of affected vessel: unspecified Is this a current diagnosis for this admission?: YesPlan: stable (5) Hypoxia Is this a current diagnosis for this admission?: YesPlan: increse o2 (6) Respiratory distress Is this a current diagnosis for this admission?: YesPlan: Currently intubated intensive care unit follow with the pulmonary - Time Time Spent with patient: 15-24 minutes Critical Time spent with patient: 15-24 minutes Medications reviewed and adjusted accordingly: Yes Anticipated discharge: Home - Inpatient Certification Medical Necessity: Need Close Monitoring Due to Risk of Patient Decompensation, Need For Continuous Telemetry Monitoring, Need for IV Antibiotics - Plan Summary Plan Summary: d/w on bed site and update all pt condition
[2016-08-27] MEDS ORDERED: AZITHROMYCIN 500 MG in DEXTROSE 5%-WATER 250 ML IV ONE (18:00)
[2016-08-27] MEDS ORDERED: NORMAL SALINE 500 ML IV PRN (18:48)
[2016-08-27] MEDS: MONTELUKAST SODIUM 10 MG TABLET NG SCH (22:09)
[2016-08-27] MEDS: TRAZODONE HCL 50 MG TABLET NG SCH (22:09)
[2016-08-28] MEDS: IPRATROPIUM/ALBUTEROL 0.5-2.5 MG/3 ML AMPUL NEB SCH ×5 (00:32→20:11)
[2016-08-28] MEDS: ACETYLCYSTEINE 10% NEB 400 MG/4 ML VIAL NEB SCH ×3 (01:59→20:11)
[2016-08-28] MEDS: ALPRAZOLAM 0.5 MG TABLET NG SCH ×3 (03:03→17:27)
[2016-08-28 05:18] LABS: ARTERIAL BLOOD BASE EXCESS 3.4 mmol/L; ARTERIAL BLOOD O2 SATURATION 96.7 % (94-98)
[2016-08-28] MEDS: METHYLPREDNISOLONE INJ 40 MG/1 ML SDV IV SCH ×3 (05:24→21:01)
[2016-08-28] MEDS: PROPOFOL 100 ML IV PRN (05:24)
[2016-08-28 07:03] LABS: ABSOLUTE LYMPHOCYTES (AUTO) 0.3 10^3/uL (0.5-4.7); ABSOLUTE MONOCYTES (AUTO) 0.5 10^3/uL (0.1-1.4); ABSOLUTE NEUT (AUTO) 4.2 10^3/uL (1.7-8.2); BASOPHILS % (AUTO) 0.1 % (0-2); HEMATOCRIT 31.6 % (36.0-47.0); HGB HCT DIFFERENCE -1.6; LYMPHOCYTES % (AUTO) 6.6 % (13-45); MEAN CORPUSCULAR HGB CONC 31.8 g/dL (32.0-36.0); MEAN CORPUSCULAR VOLUME 97 fl (80-97); RED BLOOD COUNT 3.24 10^6/uL (3.72-5.28); RED CELL DISTRIBUTION WIDTH 14.7 % (11.5-14.0); SEGMENTED NEUTROPHILS % (AUTO) 83.3 % (42-78); WHITE BLOOD COUNT 5.1 10^3/uL (4.0-10.5)
[2016-08-28 07:22] LABS: ANION GAP 6 (5-19); BLOOD UREA NITROGEN 21 mg/dL (7-20); CALCIUM 8.6 mg/dL (8.4-10.2); CARBON DIOXIDE 30 mmol/L (22-30); CHLORIDE 103 mmol/L (98-107); CREATININE RESULT 0.49 mg/dL (0.52-1.25); GLUCOSE 94 mg/dL (75-110); POTASSIUM 4.3 mmol/L (3.6-5.0); SODIUM 139.2 mmol/L (137-145)
[2016-08-28] MEDS: ENOXAPARIN SODIUM INJ 40 MG/0.4 ML DISP.SYRIN SUBCUT SCH (07:31)
[2016-08-28] MEDS: BUDESONIDE NEB 0.5 MG/2 ML AMPUL NEB SCH ×2 (08:16→20:11)
--- NOTE | 2016-08-28 08:23 | PDOC PROGRESS REPORT ---
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 Vital Signs: Temp Pulse Resp BP Pulse Ox 96.8 F L 63 14 114/58 L 100 08/28/16 08:00 08/28/16 08:00 08/28/16 08:01 08/28/16 08:00 08/28/16 08:01 Intake & Output 08/27/16 08/28/16 08/29/16 06:59 06:59 06:59 Intake Total 1769 2613 Output Total 1100 1395 75 Balance 669 1218 -75 Weight 64.8 kg 65.5 kg Physical Exam: Currently intubated General appearance: PRESENT: no acute distress Eye exam: PRESENT: PERRLA Mouth exam: PRESENT: neck supple Respiratory exam: PRESENT: clear to auscultation esperanza Cardiovascular exam: PRESENT: +S1, +S2 GI/Abdominal exam: PRESENT: normal bowel sounds, soft Extremities exam: ABSENT: pedal edema Neurological exam: PRESENT: alert, awake Psychiatric exam: PRESENT: anxious Results Laboratory Results: 08/28/16 06:55 08/28/16 06:55 08/28/16 08/28/16 08/28/16 05:10 06:55 06:55 WBC 5.1 RBC 3.24 L Hgb 10.0 L Hct 31.6 L MCV 97 MCH 31.0 MCHC 31.8 L RDW 14.7 H Plt Count 121 L Seg Neutrophils % 83.3 H Lymphocytes % 6.6 L Monocytes % 10.0 Eosinophils % 0.0 Basophils % 0.1 Absolute Neutrophils 4.2 Absolute Lymphocytes 0.3 L Absolute Monocytes 0.5 Absolute Eosinophils 0.0 Absolute Basophils 0.0 Carbonic Acid 1.58 H HCO3/H2CO3 Ratio 18:1 ABG pH 7.37 ABG pCO2 52.6 H ABG pO2 91.9 ABG HCO3 29.5 H ABG O2 Saturation 96.7 ABG Base Excess 3.4 FiO2 35% Sodium 139.2 Potassium 4.3 Chloride 103 Carbon Dioxide 30 Anion Gap 6 BUN 21 H Creatinine 0.49 L Est GFR ( Amer) > 60 Est GFR (Non-Af Amer) > 60 Glucose 94 Calcium 8.6 08/27/16 04:21 NT-Pro-B Natriuret Pep 412 Impressions: Chest X-Ray 08/28/16 06:00 IMPRESSION: Endotracheal tube nasogastric tube in good positioning. Obstructive lung disease. No acute infiltrates. Assessment & Plan - Diagnosis (1) COPD (chronic obstructive pulmonary disease) with acute bronchitis Is this a current diagnosis for this admission?: YesPlan: Decrease the IV Solu-Medrol continues a nebulizer treatment (2) Bacterial pneumonia Plan: Chest x-rays clear continuous IV antibiotic (3) Hypertension Qualifiers: Hypertension type: essential hypertension Qualified Code(s): I10 - Essential (primary) hypertension Is this a current diagnosis for this admission?: YesPlan: stable (4) Stroke Qualifiers: Laterality of affected vessel: unspecified Is this a current diagnosis for this admission?: YesPlan: stable (5) Hypoxia Is this a current diagnosis for this admission?: YesPlan: increse o2 (6) Respiratory distress Is this a current diagnosis for this admission?: YesPlan: Currently intubated intensive care unit follow with the pulmonary - Time Time Spent with patient: 15-24 minutes Critical Time spent with patient: 15-24 minutes Medications reviewed and adjusted accordingly: Yes Anticipated discharge: Home Within: Other - Inpatient Certification Medical Necessity: Significant Comorbidiites Make Outpatient Treatment Too Risky , Need Close Monitoring Due to Risk of Patient Decompensation, Need for IV Antibiotics - Plan Summary Plan Summary: Continues the current medications follow with the pulmonary discussed with the family about the patient's conditions
[2016-08-28] MEDS: PANTOPRAZOLE SODIUM 40 MG VIAL IV SCH (09:17)
[2016-08-28] MEDS: LEVETIRACETAM 500 MG/NACL-ISO 100 ML IV SCH ×2 (09:17→21:01)
[2016-08-28] MEDS: LACTOBACILLUS ACIDOPHILUS 250 MG TAB NG SCH (09:18)
[2016-08-28] MEDS: MULTIVITAMINS W-IRON TABLET, CHEWABLE NG SCH (09:18)
[2016-08-28] MEDS: ASPIRIN 81 MG TABLET, CHEWABLE NG SCH (09:18)
[2016-08-28] MEDS: SERTRALINE HCL 50 MG TABLET NG SCH (09:18)
[2016-08-28] MEDS: DOCUSATE SODIUM 100 MG CAPSULE PO SCH ×2 (09:20→17:27)
[2016-08-28] MEDS: NORMAL SALINE 1000 ML 1,000 ML IV PRN (09:20)
[2016-08-28] MEDS: TIOTROPIUM BROMIDE DPI 5 CAP/KIT (18 MCG/CAP) IH SCH (09:20)
[2016-08-28] MEDS: FLUTICASONE/SALMETEROL DISKUS 500-50 MCG/DOSE IH SCH ×2 (09:20→17:40)
[2016-08-28] MEDS: AZITHROMYCIN 250 MG in DEXTROSE 5%-WATER 250 ML IV SCH (17:40)
[2016-08-28] MEDS ORDERED: AZITHROMYCIN 250 MG in DEXTROSE 5%-WATER 250 ML IV SCH (18:00)
[2016-08-28] MEDS: MONTELUKAST SODIUM 10 MG TABLET NG SCH (21:01)
[2016-08-28] MEDS: TRAZODONE HCL 50 MG TABLET NG SCH (21:01)
[2016-08-28] MEDS ORDERED: ACETAMINOPHEN 325 MG TABLET PO PRN (21:23)
[2016-08-28] MEDS: TRAZODONE HCL 50 MG TABLET PO SCH (22:27)
[2016-08-28] MEDS: MONTELUKAST SODIUM 10 MG TABLET PO SCH (22:27)
[2016-08-29] MEDS: IPRATROPIUM/ALBUTEROL 0.5-2.5 MG/3 ML AMPUL NEB SCH ×4 (02:18→20:06)
[2016-08-29] MEDS: ALPRAZOLAM 0.5 MG TABLET PO SCH ×3 (02:22→17:23)
[2016-08-29] MEDS: NORMAL SALINE 1000 ML 1,000 ML IV PRN (03:51)
[2016-08-29] MEDS: METHYLPREDNISOLONE INJ 40 MG/1 ML SDV IV SCH ×3 (05:00→21:27)
[2016-08-29] MEDS: ACETYLCYSTEINE 10% NEB 400 MG/4 ML VIAL NEB SCH ×2 (07:57→20:06)
[2016-08-29] MEDS: BUDESONIDE NEB 0.5 MG/2 ML AMPUL NEB SCH ×2 (07:57→20:06)
[2016-08-29] MEDS: ENOXAPARIN SODIUM INJ 40 MG/0.4 ML DISP.SYRIN SUBCUT SCH (08:01)
--- NOTE | 2016-08-29 09:28 | PDOC PROGRESS REPORT ---
Subjective Progress Note for:: 08/28/16 Physical Exam Vital Signs: Temp Pulse Resp BP Pulse Ox 97.9 F 81 15 119/78 97 08/29/16 08:00 08/29/16 08:00 08/29/16 08:00 08/29/16 08:00 08/29/16 08:00 Intake & Output 08/28/16 08/29/16 08/30/16 06:59 06:59 06:59 Intake Total 2613 1757 Output Total 1395 1720 100 Balance 1218 37 -100 Weight 65.5 kg 65.9 kg Results Laboratory Results: 08/28/16 06:55 08/28/16 06:55 08/25/16 21:03 Kirkpatrick Catheter Urine Culture - Final NO GROWTH 2 DAYS 08/25/16 22:37 Tracheal Aspirate Gram Stain - Final 08/25/16 22:37 Tracheal Aspirate Sputum Culture - Final NO GROWTH 2 DAYS 08/27/16 04:21 NT-Pro-B Natriuret Pep 412 Impressions: Chest X-Ray 08/28/16 06:00 IMPRESSION: Endotracheal tube nasogastric tube in good positioning. Obstructive lung disease. No acute infiltrates.
[2016-08-29] MEDS ORDERED: LACTOBACILLUS ACIDOPHILUS 250 MG TAB PO SCH (10:00)
[2016-08-29] MEDS: MULTIVITAMINS W-IRON TABLET, CHEWABLE PO SCH (11:00)
[2016-08-29 11:01] LABS: ANION GAP 5 (5-19); BLOOD UREA NITROGEN 21 mg/dL (7-20); CALCIUM 8.4 mg/dL (8.4-10.2); CARBON DIOXIDE 33 mmol/L (22-30); CHLORIDE 105 mmol/L (98-107); CREATININE RESULT 0.49 mg/dL (0.52-1.25); GLUCOSE 85 mg/dL (75-110); POTASSIUM 4.6 mmol/L (3.6-5.0); SODIUM 142.6 mmol/L (137-145)
[2016-08-29] MEDS: LEVETIRACETAM 500 MG/NACL-ISO 100 ML IV SCH ×2 (11:01→21:34)
[2016-08-29] MEDS: TIOTROPIUM BROMIDE DPI 5 CAP/KIT (18 MCG/CAP) IH SCH (11:01)
[2016-08-29] MEDS: DOCUSATE SODIUM 100 MG CAPSULE PO SCH (11:02)
[2016-08-29] MEDS: ASPIRIN 81 MG TABLET, CHEWABLE PO SCH (11:02)
[2016-08-29] MEDS: SERTRALINE HCL 50 MG TABLET PO SCH (11:02)
[2016-08-29] MEDS: FLUTICASONE/SALMETEROL DISKUS 500-50 MCG/DOSE IH SCH ×2 (11:03→17:19)
--- NOTE | 2016-08-29 11:35 | PDOC PROGRESS REPORT ---
Subjective Progress Note for:: 08/29/16 Subjective:: Patient is doing much better this morning so was extubated yesterday denied any chest pain no shortness of the breath was some on and off cough is otherwise wants to eat and the family on the bedside Physical Exam Vital Signs: Temp Pulse Resp BP Pulse Ox 97.9 F 81 22 H 128/66 H 96 08/29/16 08:00 08/29/16 08:00 08/29/16 10:01 08/29/16 10:00 08/29/16 10:01 Intake & Output 08/28/16 08/29/16 08/30/16 06:59 06:59 06:59 Intake Total 2613 1757 Output Total 1395 1720 200 Balance 1218 37 -200 Weight 65.5 kg 65.9 kg General appearance: PRESENT: no acute distress Head exam: PRESENT: normocephalic Eye exam: PRESENT: PERRLA Mouth exam: PRESENT: neck supple Respiratory exam: PRESENT: clear to auscultation esperanza Cardiovascular exam: PRESENT: +S1, +S2 GI/Abdominal exam: PRESENT: normal bowel sounds, soft. ABSENT: tenderness Extremities exam: ABSENT: pedal edema Neurological exam: PRESENT: alert, awake, oriented to person, oriented to place , oriented to time Psychiatric exam: PRESENT: anxious Results Laboratory Results: 08/28/16 06:55 08/29/16 10:35 08/29/16 10:35 Sodium 142.6 Potassium 4.6 Chloride 105 Carbon Dioxide 33 H Anion Gap 5 BUN 21 H Creatinine 0.49 L Est GFR ( Amer) > 60 Est GFR (Non-Af Amer) > 60 Glucose 85 Calcium 8.4 08/25/16 21:03 Kirkpatrick Catheter Urine Culture - Final NO GROWTH 2 DAYS 08/25/16 22:37 Tracheal Aspirate Gram Stain - Final 08/25/16 22:37 Tracheal Aspirate Sputum Culture - Final NO GROWTH 2 DAYS 08/27/16 04:21 NT-Pro-B Natriuret Pep 412 Impressions: Chest X-Ray 08/28/16 06:00 IMPRESSION: Endotracheal tube nasogastric tube in good positioning. Obstructive lung disease. No acute infiltrates. Assessment & Plan - Diagnosis (1) COPD (chronic obstructive pulmonary disease) with acute bronchitis Is this a current diagnosis for this admission?: YesPlan: Doing very well continues the current medications (2) Bacterial pneumonia Plan: IV antibiotic (3) Hypertension Qualifiers: Hypertension type: essential hypertension Qualified Code(s): I10 - Essential (primary) hypertension Is this a current diagnosis for this admission?: YesPlan: stable (4) Stroke Qualifiers: Laterality of affected vessel: unspecified Is this a current diagnosis for this admission?: YesPlan: stable (5) Hypoxia Is this a current diagnosis for this admission?: YesPlan: ALT stable with current oxygen (6) Respiratory distress Is this a current diagnosis for this admission?: YesPlan: Currently extubated - Time Time Spent with patient: 15-24 minutes Critical Time spent with patient: 15-24 minutes Medications reviewed and adjusted accordingly: Yes Anticipated discharge: Home - Inpatient Certification Medical Necessity: Need Close Monitoring Due to Risk of Patient Decompensation - Plan Summary Plan Summary: Patient is doing very well Trosper to the IMCU start the by mouth intake aspirations precautions this with the family on the bedside
[2016-08-29] MEDS: BENZONATATE 100 MG CAPSULE PO SCH ×2 (14:19→17:22)
[2016-08-29] MEDS: AZITHROMYCIN 250 MG in DEXTROSE 5%-WATER 250 ML IV SCH (17:24)
[2016-08-29] MEDS: MONTELUKAST SODIUM 10 MG TABLET PO SCH (21:27)
[2016-08-29] MEDS: TRAZODONE HCL 50 MG TABLET PO SCH (21:27)
[2016-08-29] MEDS ORDERED: LEVETIRACETAM 500 MG/NACL-ISO 500 MG/100 ML RTUPB IV ONE (21:30)
[2016-08-30] MEDS: ALPRAZOLAM 0.5 MG TABLET PO SCH ×3 (01:55→17:48)
[2016-08-30] MEDS: IPRATROPIUM/ALBUTEROL 0.5-2.5 MG/3 ML AMPUL NEB SCH ×4 (02:18→20:38)
[2016-08-30] MEDS: METHYLPREDNISOLONE INJ 40 MG/1 ML SDV IV SCH ×3 (05:13→21:20)
[2016-08-30 06:36] LABS: ABSOLUTE LYMPHOCYTES (AUTO) 0.5 10^3/uL (0.5-4.7); ABSOLUTE MONOCYTES (AUTO) 0.4 10^3/uL (0.1-1.4); ABSOLUTE NEUT (AUTO) 3.1 10^3/uL (1.7-8.2); BASOPHILS % (AUTO) 0.2 % (0-2); EOSINOPHILS % (AUTO) 0.1 % (0-6); HEMATOCRIT 33.4 % (36.0-47.0); HGB HCT DIFFERENCE -0.4; LYMPHOCYTES % (AUTO) 11.7 % (13-45); MEAN CORPUSCULAR HEMOGLOBIN 31.6 pg (27.0-33.4); MEAN CORPUSCULAR HGB CONC 32.9 g/dL (32.0-36.0); MEAN CORPUSCULAR VOLUME 96 fl (80-97); MONOCYTES % (AUTO) 9.3 % (3-13); RED BLOOD COUNT 3.49 10^6/uL (3.72-5.28); RED CELL DISTRIBUTION WIDTH 14.5 % (11.5-14.0); SEGMENTED NEUTROPHILS % (AUTO) 78.7 % (42-78)
[2016-08-30 06:55] LABS: ANION GAP 6 (5-19); BLOOD UREA NITROGEN 16 mg/dL (7-20); CALCIUM 8.6 mg/dL (8.4-10.2); CARBON DIOXIDE 33 mmol/L (22-30); CHLORIDE 101 mmol/L (98-107); CREATININE RESULT 0.42 mg/dL (0.52-1.25); GLUCOSE 87 mg/dL (75-110); POTASSIUM 4.8 mmol/L (3.6-5.0)
[2016-08-30] MEDS: BUDESONIDE NEB 0.5 MG/2 ML AMPUL NEB SCH ×2 (08:39→20:38)
[2016-08-30] MEDS: ACETYLCYSTEINE 10% NEB 400 MG/4 ML VIAL NEB SCH ×2 (08:40→21:11)
[2016-08-30] MEDS: MULTIVITAMINS W-IRON TABLET, CHEWABLE PO SCH (09:27)
[2016-08-30] MEDS: ASPIRIN 81 MG TABLET, CHEWABLE PO SCH (09:27)
[2016-08-30] MEDS: BENZONATATE 100 MG CAPSULE PO SCH ×3 (09:28→17:48)
[2016-08-30] MEDS: SERTRALINE HCL 50 MG TABLET PO SCH (09:29)
[2016-08-30] MEDS: TIOTROPIUM BROMIDE DPI 5 CAP/KIT (18 MCG/CAP) IH SCH (09:32)
[2016-08-30] MEDS: FLUTICASONE/SALMETEROL DISKUS 500-50 MCG/DOSE IH SCH ×2 (09:33→17:49)
[2016-08-30] MEDS: ENOXAPARIN SODIUM INJ 40 MG/0.4 ML DISP.SYRIN SUBCUT SCH (09:35)
[2016-08-30 10:50] LABS: ARTERIAL BLOOD BASE EXCESS 9.9 mmol/L
[2016-08-30] MEDS: LEVETIRACETAM 500 MG/NACL-ISO 100 ML IV SCH ×2 (11:02→21:21)
[2016-08-30] MEDS: LACTOBACILLUS ACIDOPHILUS 250 MG TAB PO SCH (11:08)
--- NOTE | 2016-08-30 12:42 | PDOC PROGRESS REPORT ---
Subjective Progress Note for:: 08/30/16 Subjective:: Patient is feeling much better. Condition on 3 L nasal cannula oxygen and currently O2 sat is a below 90% was denied any chest any shortness of the breath cough is much better Physical Exam Vital Signs: Temp Pulse Resp BP Pulse Ox 97.8 F 95 18 147/67 H 90 L 08/30/16 11:15 08/30/16 11:15 08/30/16 11:15 08/30/16 11:15 08/30/16 11:15 Intake & Output 08/29/16 08/30/16 08/31/16 06:59 06:59 06:59 Intake Total 1757 2119 Output Total 1720 3700 Balance 37 -1581 Weight 65.9 kg 64.4 kg General appearance: PRESENT: no acute distress Head exam: PRESENT: normocephalic Eye exam: PRESENT: PERRLA Mouth exam: PRESENT: neck supple Respiratory exam: PRESENT: clear to auscultation esperanza Cardiovascular exam: PRESENT: +S1, +S2 GI/Abdominal exam: PRESENT: normal bowel sounds, soft. ABSENT: tenderness Extremities exam: ABSENT: pedal edema Neurological exam: PRESENT: alert, awake, oriented to person, oriented to place , oriented to time, oriented to situation Psychiatric exam: PRESENT: anxious Results Laboratory Results: 08/30/16 06:12 08/30/16 06:12 08/30/16 08/30/16 08/30/16 06:12 06:12 10:28 WBC 4.0 RBC 3.49 L Hgb 11.0 L Hct 33.4 L MCV 96 MCH 31.6 MCHC 32.9 RDW 14.5 H Plt Count 145 L Seg Neutrophils % 78.7 H Lymphocytes % 11.7 L Monocytes % 9.3 Eosinophils % 0.1 Basophils % 0.2 Absolute Neutrophils 3.1 Absolute Lymphocytes 0.5 Absolute Monocytes 0.4 Absolute Eosinophils 0.0 Absolute Basophils 0.0 Carbonic Acid 1.61 H HCO3/H2CO3 Ratio 22:1 ABG pH 7.44 ABG pCO2 53.4 H ABG pO2 80.3 ABG HCO3 35.6 H ABG O2 Saturation 96.0 ABG Base Excess 9.9 FiO2 1.5L Sodium 140.0 Potassium 4.8 Chloride 101 Carbon Dioxide 33 H Anion Gap 6 BUN 16 Creatinine 0.42 L Est GFR ( Amer) > 60 Est GFR (Non-Af Amer) > 60 Glucose 87 Calcium 8.6 Magnesium 2.0 08/27/16 04:21 NT-Pro-B Natriuret Pep 412 Impressions: Chest X-Ray 08/30/16 06:00 IMPRESSION: COPD. Cardiomegaly. Atelectasis or early pneumonia left lower lobe. Assessment & Plan - Diagnosis (1) COPD (chronic obstructive pulmonary disease) with acute bronchitis Is this a current diagnosis for this admission?: YesPlan: Much better reduce the IV Solu-Medrol (2) Bacterial pneumonia Plan: IV antibiotic (3) Hypertension Qualifiers: Hypertension type: essential hypertension Qualified Code(s): I10 - Essential (primary) hypertension Is this a current diagnosis for this admission?: YesPlan: stable (4) Stroke Qualifiers: Laterality of affected vessel: unspecified Is this a current diagnosis for this admission?: YesPlan: stable (5) Hypoxia Is this a current diagnosis for this admission?: YesPlan: ALT stable with the nc 3 liter (6) Respiratory distress Is this a current diagnosis for this admission?: YesPlan: Resolved - Time Time Spent with patient: 15-24 minutes Medications reviewed and adjusted accordingly: Yes Anticipated discharge: Home Within: within 48 hours - Inpatient Certification Medical Necessity: Need Close Monitoring Due to Risk of Patient Decompensation, Need for Neurological Checks - Plan Summary Plan Summary: Discussed with the patient and the family in the room and pt is currently doing very well
[2016-08-30] MEDS: NORMAL SALINE 1000 ML 1,000 ML IV PRN (15:25)
[2016-08-30] MEDS: AZITHROMYCIN 250 MG in DEXTROSE 5%-WATER 250 ML IV SCH (17:49)
[2016-08-30] MEDS: TRAZODONE HCL 50 MG TABLET PO SCH (21:21)
[2016-08-30] MEDS: MONTELUKAST SODIUM 10 MG TABLET PO SCH (21:21)
[2016-08-31] MEDS: ALPRAZOLAM 0.5 MG TABLET PO SCH ×3 (01:13→17:40)
[2016-08-31] MEDS: IPRATROPIUM/ALBUTEROL 0.5-2.5 MG/3 ML AMPUL NEB SCH ×4 (02:21→20:31)
[2016-08-31] MEDS: METHYLPREDNISOLONE INJ 40 MG/1 ML SDV IV SCH (05:34)
[2016-08-31] MEDS: NORMAL SALINE 1000 ML 1,000 ML IV PRN ×2 (05:34→21:30)
[2016-08-31 06:53] LABS: ABSOLUTE MONOCYTES (AUTO) 0.6 10^3/uL (0.1-1.4); ABSOLUTE NEUT (AUTO) 3.9 10^3/uL (1.7-8.2); EOSINOPHILS % (AUTO) 0.6 % (0-6); HEMATOCRIT 34.6 % (36.0-47.0); HEMOGLOBIN 10.8 g/dL (12.0-15.5); HGB HCT DIFFERENCE -2.2; LYMPHOCYTES % (AUTO) 17.2 % (13-45); MEAN CORPUSCULAR HEMOGLOBIN 30.6 pg (27.0-33.4); MEAN CORPUSCULAR HGB CONC 31.2 g/dL (32.0-36.0); MEAN CORPUSCULAR VOLUME 98 fl (80-97); MONOCYTES % (AUTO) 11.7 % (3-13); RED BLOOD COUNT 3.53 10^6/uL (3.72-5.28); RED CELL DISTRIBUTION WIDTH 14.7 % (11.5-14.0); SEGMENTED NEUTROPHILS % (AUTO) 70.5 % (42-78); WHITE BLOOD COUNT 5.5 10^3/uL (4.0-10.5)
[2016-08-31 07:09] LABS: BLOOD UREA NITROGEN 12 mg/dL (7-20); CALCIUM 8.6 mg/dL (8.4-10.2); CREATININE RESULT 0.47 mg/dL (0.52-1.25); GLUCOSE 78 mg/dL (75-110); POTASSIUM 4.5 mmol/L (3.6-5.0)
[2016-08-31 07:27] LABS: ANION GAP 2 (5-19); CARBON DIOXIDE 38 mmol/L (22-30); CHLORIDE 101 mmol/L (98-107); SODIUM 141.1 mmol/L (137-145)
[2016-08-31] MEDS: BUDESONIDE NEB 0.5 MG/2 ML AMPUL NEB SCH ×2 (08:52→20:31)
[2016-08-31] MEDS: ACETYLCYSTEINE 10% NEB 400 MG/4 ML VIAL NEB SCH ×2 (08:52→20:31)
--- NOTE | 2016-08-31 09:29 | PDOC PROGRESS REPORT ---
Subjective Progress Note for:: 08/31/16 Subjective:: pt is doing well denied any sob nochest pain cough is also better Physical Exam Vital Signs: Temp Pulse Resp BP Pulse Ox 97.8 F 76 18 141/72 H 94 08/31/16 07:58 08/31/16 07:58 08/31/16 07:58 08/31/16 07:58 08/31/16 07:58 Intake & Output 08/30/16 08/31/16 09/01/16 06:59 06:59 06:59 Intake Total 2119 3075 Output Total 3700 3225 Balance -1581 -150 Weight 64.4 kg 63.3 kg General appearance: PRESENT: no acute distress Head exam: PRESENT: normocephalic Eye exam: PRESENT: PERRLA Mouth exam: PRESENT: neck supple Respiratory exam: PRESENT: clear to auscultation esperanza Cardiovascular exam: PRESENT: +S1, +S2 GI/Abdominal exam: PRESENT: normal bowel sounds, soft Extremities exam: ABSENT: pedal edema Neurological exam: PRESENT: alert, awake, oriented to person, oriented to place Psychiatric exam: PRESENT: anxious Results Laboratory Results: 08/31/16 06:06 08/31/16 06:06 08/30/16 08/31/16 08/31/16 10:28 06:06 06:06 WBC 5.5 RBC 3.53 L Hgb 10.8 L Hct 34.6 L MCV 98 H MCH 30.6 MCHC 31.2 L RDW 14.7 H Plt Count 143 L Seg Neutrophils % 70.5 Lymphocytes % 17.2 Monocytes % 11.7 Eosinophils % 0.6 Basophils % 0.0 Absolute Neutrophils 3.9 Absolute Lymphocytes 1.0 Absolute Monocytes 0.6 Absolute Eosinophils 0.0 Absolute Basophils 0.0 Carbonic Acid 1.61 H HCO3/H2CO3 Ratio 22:1 ABG pH 7.44 ABG pCO2 53.4 H ABG pO2 80.3 ABG HCO3 35.6 H ABG O2 Saturation 96.0 ABG Base Excess 9.9 FiO2 1.5L Sodium 141.1 Potassium 4.5 Chloride 101 Carbon Dioxide 38 H Anion Gap 2 L BUN 12 Creatinine 0.47 L Est GFR ( Amer) > 60 Est GFR (Non-Af Amer) > 60 Glucose 78 Calcium 8.6 08/26/16 04:04 Blood Blood Culture - Final NO GROWTH IN 5 DAYS 08/26/16 01:33 Blood Blood Culture - Final NO GROWTH IN 5 DAYS 08/25/16 14:41 Blood Blood Culture - Final NO GROWTH IN 5 DAYS 08/25/16 13:49 Blood Blood Culture - Final NO GROWTH IN 5 DAYS 08/27/16 04:21 NT-Pro-B Natriuret Pep 412 Impressions: Chest X-Ray 08/30/16 06:00 IMPRESSION: COPD. Cardiomegaly. Atelectasis or early pneumonia left lower lobe. Assessment & Plan - Diagnosis (1) COPD (chronic obstructive pulmonary disease) with acute bronchitis Is this a current diagnosis for this admission?: YesPlan: sll better (2) Bacterial pneumonia Plan: IV antibiotic (3) Hypertension Qualifiers: Hypertension type: essential hypertension Qualified Code(s): I10 - Essential (primary) hypertension Is this a current diagnosis for this admission?: YesPlan: stable (4) Stroke Qualifiers: Laterality of affected vessel: unspecified Is this a current diagnosis for this admission?: YesPlan: stable (5) Hypoxia Is this a current diagnosis for this admission?: YesPlan: ALT stable with the nc 3 liter (6) Respiratory distress Is this a current diagnosis for this admission?: Yes - Time Time Spent with patient: 15-24 minutes Medications reviewed and adjusted accordingly: Yes Anticipated discharge: Home Within: within 24 hours - Inpatient Certification Medical Necessity: Need Close Monitoring Due to Risk of Patient Decompensation
[2016-08-31] MEDS: MULTIVITAMINS W-IRON TABLET, CHEWABLE PO SCH (09:33)
[2016-08-31] MEDS: BENZONATATE 100 MG CAPSULE PO SCH ×3 (09:33→17:40)
[2016-08-31] MEDS: LACTOBACILLUS ACIDOPHILUS 250 MG TAB PO SCH (09:34)
[2016-08-31] MEDS: ASPIRIN 81 MG TABLET, CHEWABLE PO SCH (09:34)
[2016-08-31] MEDS: TIOTROPIUM BROMIDE DPI 5 CAP/KIT (18 MCG/CAP) IH SCH (09:34)
[2016-08-31] MEDS: FLUTICASONE/SALMETEROL DISKUS 500-50 MCG/DOSE IH SCH ×2 (09:34→17:39)
[2016-08-31] MEDS: SERTRALINE HCL 50 MG TABLET PO SCH (09:34)
[2016-08-31] MEDS: ENOXAPARIN SODIUM INJ 40 MG/0.4 ML DISP.SYRIN SUBCUT SCH (09:35)
[2016-08-31] MEDS ORDERED: ACETAMINOPHEN 325 MG TABLET PO PRN (09:39)
[2016-08-31] MEDS: LEVETIRACETAM 500 MG/NACL-ISO 100 ML IV SCH ×2 (09:42→21:30)
[2016-08-31] MEDS: PREDNISONE 20 MG TABLET PO SCH ×2 (10:04→17:41)
[2016-08-31] MEDS ORDERED: AZITHROMYCIN 250 MG TABLET PO SCH (18:00)
[2016-08-31] MEDS: TRAZODONE HCL 50 MG TABLET PO SCH (21:29)
[2016-08-31] MEDS: MONTELUKAST SODIUM 10 MG TABLET PO SCH (21:29)
[2016-09-01] MEDS: ALPRAZOLAM 0.5 MG TABLET PO SCH ×2 (02:24→09:45)
[2016-09-01] MEDS: IPRATROPIUM/ALBUTEROL 0.5-2.5 MG/3 ML AMPUL NEB SCH ×2 (02:35→07:44)
[2016-09-01 07:05] LABS: ANION GAP 5 (5-19); BLOOD UREA NITROGEN 14 mg/dL (7-20); CALCIUM 8.5 mg/dL (8.4-10.2); CARBON DIOXIDE 35 mmol/L (22-30); CHLORIDE 101 mmol/L (98-107); CREATININE RESULT 0.44 mg/dL (0.52-1.25); GLUCOSE 95 mg/dL (75-110); POTASSIUM 3.6 mmol/L (3.6-5.0); SODIUM 140.7 mmol/L (137-145)
[2016-09-01] MEDS: ACETYLCYSTEINE 10% NEB 400 MG/4 ML VIAL NEB SCH (07:44)
[2016-09-01] MEDS: BUDESONIDE NEB 0.5 MG/2 ML AMPUL NEB SCH (07:44)
--- NOTE | 2016-09-01 08:12 | PDOC DISCHARGE SUMMARY ---
General - Admit/Disc Date/PCP Admission Date/Primary Care Provider: 08/25/16 13:15 CHRISTIAN SMITH MD Discharge Date: 09/01/16 - Discharge Diagnosis (1) COPD (chronic obstructive pulmonary disease) with acute bronchitis Is this a current diagnosis for this admission?: YesSummary: All resolving (2) Bacterial pneumonia Summary: Continues to by mouth antibiotic (3) Hypertension Is this a current diagnosis for this admission?: YesSummary: Stable (4) Stroke Is this a current diagnosis for this admission?: YesSummary: continue the current medications (5) Hypoxia Is this a current diagnosis for this admission?: YesSummary: Currently on oxygen (6) Respiratory distress Is this a current diagnosis for this admission?: YesSummary: Resolved - Additional Information Resuscitation Status: Full Code Discharge Diet: Regular Discharge Activity: Activity As Tolerated Home Medications: Aspirin [Aspirin 81 mg Chewable Tablet] 81 mg PO DAILY 08/25/16 Benzonatate [Tessalon Perles 100 mg Capsule] 100 mg PO TIDP PRN 08/25/16 Diclofenac Sodium [Voltaren] 4 gm TOP BID 08/25/16 Docusate Sodium [Colace 100 mg Capsule] 300 mg PO DAILYP PRN 08/25/16 Fluticasone/Salmeterol [Advair 500-50 Diskus 14 Dose/Diskus] 1 puff IH BID 08/25 Folic Acid/Multivit-Min/Lutein [Centrum Silver Chewable Tablet] 1 each PO DAILY 08/25/16 Lactobacillus Acidophilus [Acidophilus] 1 each PO DAILY 08/25/16 Levetiracetam [Keppra 500 mg Tablet] 500 mg PO Q12 08/25/16 Montelukast Sodium [Singulair] 10 mg PO QHS 08/25/16 Nystatin [Mycostatin Topical Powder 15 gm] 1 applic TOP BIDP PRN 08/25/16 Omeprazole 40 mg PO BID 08/25/16 Sertraline HCl [Zoloft] 100 mg PO DAILY 08/25/16 Tiotropium [place] [Spiriva Handihaler 5 Cap/Kit (18 Mcg/Cap)] 1 cap IH DAILY Trazodone HCl [Desyrel] 150 mg PO QHS 08/25/16 Acetylcysteine [Mucomist 10% Neb 400 mg/4 mL Vial] 400 mg NEB RTBID #60 vial.neb 09/01/16 Azithromycin [Zithromax 250 mg Tablet] 500 mg PO QPM #5 tablet 09/01/16 Budesonide [Pulmicort Neb 0.5 mg/2 ml Ampul] 0.5 mg NEB RTQ12 #60 ampul.neb Ipratropium/Albuterol Sulfate [Duoneb 3 ml Ampul] 3 ml NEB RTQ6 #120 vial.neb Prednisone [Deltasone 20 mg Tablet] 20 mg PO DAILY #6 tablet 09/01/16 History of Present Illness History of Present Illness: ANNA AMEZCUA is a 81 year old female This is a 81-year-old female came to the office today with a complaint of difficulty in breathing and cough and congestions since last couple of days since denied any fever patient also have a history of the bronchitis is and COPD currently see Dr. Hernandez also. Patient's in the office oxygen saturation is 72 on 2 L oxygen and increased up to 4 was up to the 88% and patient was of diffusely wheezing decided to admit in the hospital evaluation and treatment . 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 Hernandez was consulted. Intubated in keeping intensive care unit and patient was successfully extubated and transferred to the [facility] patient' s doing very well on 3 lit o2. Walk with the physical therapy since by mouth intake is good patient's back to the baseline and anxious to go home. The medical problem is all stable and discuss with the pulmonary patient's discharge home current nebulizer treatment and by mouth antibiotic to follow as outpatient. As the family discussing the and the daughter and already about the plan Physical Exam Vital Signs: Temp Pulse Resp BP Pulse Ox 97.4 F 77 16 113/77 98 09/01/16 04:08 09/01/16 04:08 09/01/16 04:08 09/01/16 04:08 09/01/16 06:46 Intake & Output 08/31/16 09/01/16 09/02/16 06:59 06:59 06:59 Intake Total 3075 4362 Output Total 3225 1650 Balance -150 2712 Weight 63.3 kg 63.7 kg General appearance: PRESENT: no acute distress Head exam: PRESENT: normocephalic Eye exam: PRESENT: PERRLA Mouth exam: PRESENT: neck supple Respiratory exam: PRESENT: clear to auscultation esperanza Cardiovascular exam: PRESENT: +S1, +S2 GI/Abdominal exam: PRESENT: normal bowel sounds, soft. ABSENT: tenderness Extremities exam: ABSENT: pedal edema Musculoskeletal exam: PRESENT: ambulatory Neurological exam: PRESENT: awake, oriented to person, oriented to place, oriented to time, oriented to situation Psychiatric exam: PRESENT: anxious Results Laboratory Results: 08/31/16 06:06 09/01/16 06:23 09/01/16 06:23 Sodium 140.7 Potassium 3.6 Chloride 101 Carbon Dioxide 35 H Anion Gap 5 BUN 14 Creatinine 0.44 L Est GFR ( Amer) > 60 Est GFR (Non-Af Amer) > 60 Glucose 95 Calcium 8.5 08/26/16 04:04 Blood Blood Culture - Final NO GROWTH IN 5 DAYS 08/27/16 04:21 NT-Pro-B Natriuret Pep 412 Impressions: Chest X-Ray 08/30/16 06:00 IMPRESSION: COPD. Cardiomegaly. Atelectasis or early pneumonia left lower lobe. Plan Discharge Plan: Plan for discharge home with oxygen and nebulizer treatment nothing by mouth antibiotic and follow out patient's with the pulmonary continues to monitor the patient.discuss with the family Time Spent: Greater than 30 Minutes
[2016-09-01] MEDS: ENOXAPARIN SODIUM INJ 40 MG/0.4 ML DISP.SYRIN SUBCUT SCH (08:58)
[2016-09-01] MEDS ORDERED: DOCUSATE SODIUM 100 MG CAPSULE PO ONE (09:00)
[2016-09-01] MEDS ORDERED: LACTULOSE SYRUP 20 GM/30 ML UDCUP PO ONE (09:00)
[2016-09-01] MEDS: PREDNISONE 20 MG TABLET PO SCH (09:45)
[2016-09-01] MEDS: ASPIRIN 81 MG TABLET, CHEWABLE PO SCH (09:45)
[2016-09-01] MEDS: SERTRALINE HCL 50 MG TABLET PO SCH (09:45)
[2016-09-01] MEDS: LACTOBACILLUS ACIDOPHILUS 250 MG TAB PO SCH (09:45)
[2016-09-01] MEDS: MULTIVITAMINS W-IRON TABLET, CHEWABLE PO SCH (09:45)
[2016-09-01] MEDS: BENZONATATE 100 MG CAPSULE PO SCH (09:45)
[2016-09-01] MEDS: FLUTICASONE/SALMETEROL DISKUS 500-50 MCG/DOSE IH SCH (09:46)
[2016-09-01] MEDS: TIOTROPIUM BROMIDE DPI 5 CAP/KIT (18 MCG/CAP) IH SCH (09:48)
[2016-09-01] MEDS: LEVETIRACETAM 500 MG/NACL-ISO 100 ML IV SCH (09:54)
[2016-09-01 12:14] VITALS: BP 120/68
== END 2016-09-01 13:20 | disposition home or self-care (01) | DRG 208 ==
LOC: 5 12:52 → UNDOADMIN 12:52 → 5 13:14 → UNDOADMIN 13:14 → 5 13:15 → EH 21:57 → 3S 08-29 14:53
PROVIDERS: ADMIT Family Medicine; ATTEND Family Medicine
PROC: 5A1945Z Respiratory Ventilation, 24-96 Consecutive Hours (ICD-10-PCS; principal; 2016-08-25)
PROC: 0BH17EZ Insertion of Endotracheal Airway into Trachea, Via Natural or Artificial Opening (ICD-10-PCS; 2016-08-25)
PROC: 3E0F73Z Introduction of Anti-inflammatory into Respiratory Tract, Via Natural or Artificial Opening (ICD-10-PCS; 2016-08-25)
DX: J44.0 Chronic obstructive pulmonary disease with (acute) lower respiratory infection (principal); J15.1 Pneumonia due to Pseudomonas; J96.11 Chronic respiratory failure with hypoxia; J44.1 Chronic obstructive pulmonary disease with (acute) exacerbation; I10 Essential (primary) hypertension; F41.9 Anxiety disorder, unspecified; J45.909 Unspecified asthma, uncomplicated; M19.90 Unspecified osteoarthritis, unspecified site; D64.9 Anemia, unspecified; J20.9 Acute bronchitis, unspecified; Z78.1 Physical restraint status; Z86.73 Personal history of transient ischemic attack (TIA), and cerebral infarction without residual deficits; Z79.899 Other long term (current) drug therapy; Z99.81 Dependence on supplemental oxygen; Z90.710 Acquired absence of both cervix and uterus; Z90.10 Acquired absence of unspecified breast and nipple; Z95.0 Presence of cardiac pacemaker; Z87.891 Personal history of nicotine dependence; Z88.3 Allergy status to other anti-infective agents; Z88.8 Allergy status to other drugs, medicaments and biological substances; Z88.6 Allergy status to analgesic agent; Z91.040 Latex allergy status; Z82.49 Family history of ischemic heart disease and other diseases of the circulatory system
CPT/HCPCS: 31500; 36415; 36600; 71010; 71020; 80048; 80053; 82803; 83735; 83880; 84478; 85025; 85610; 85730; 87040; 87070; 87086; 87205; 93005; 93010; 94002; 94003; 94640; 94660; G8978-GP; G8979-GP; G8996-GN; G8997-GN; G8998-GN; J0456; J0692; J1100; J1650; J1953; J1956; J2704; J2920; J3490; J7030; J7040; J7060; J7512; J7620; S0164

== ENCOUNTER → 2017-02-19 | Outpatient (CLI) | payer MEDICARE, OTHER ==
--- NOTE | 2017-02-19 09:22 | WOMENS IMAGING REPORT ---
EXAM DESCRIPTION: BILAT DIAGNOSTIC MAMMO W/CAD COMPLETED DATE/TIME: 02/19/2017 8:45 am REASON FOR STUDY: N64.4, MASTODYNIA N64.4 MASTODYNIA COMPARISON: March 2016 TECHNIQUE: Standard craniocaudal and mediolateral oblique views of each breast recorded using digita l acquisition. An additional true lateral view of the left breast was obtained. LIMITATIONS: None. FINDINGS: RIGHT BREAST MASSES: No suspicious masses. CALCIFICATIONS: No new or suspicious calcifications. ARCHITECTURAL DISTORTION: None. DEVELOPING DENSITY: None. ASYMMETRY: None noted. OTHER: No other significant findings. LEFT BREAST MASSES: No suspicious masses. CALCIFICATIONS: No new or suspicious calcifications. ARCHITECTURAL DISTORTION: None. DEVELOPING DENSITY: None. ASYMMETRY: None noted. OTHER: Do the patient's clinical history ultrasound will be obtained for further evaluation. Read with the assistance of CAD: .[facility] - R2 Cenova Version 1.3 .[facility] - R2 Cenova Version 1.3 .[facility] - R2 Cenova Version 2.4 .[facility] [place] - R2 Cenova Version 2.4 .[facility] - R2 Tele[employer] Sales Representative Version 9.2 BREAST ULTRASOUND: TECHNIQUE: Static and dynamic grayscale images acquired of the left breast in the specific areas of c linical/mammographic concern. Selected color Doppler images recorded. ELASTOGRAPHY PERFORMED: No. LIMITATIONS: None. FINDINGS: MASS: No mass identified. Normal glandular tissue. ELASTOGRAPHY CHARACTERISTICS: Not applicable. OTHER: No other significant finding. IMPRESSION: No significant findings BREAST DENSITY: b. There are scattered areas of fibroglandular density. BIRAD: 1 Negative. RECOMMENDATION: RECOMMENDED FOLLOW UP: Recommend clinical followup SPECIFIC INTERVENTION/IMAGING/CONSULTATION RECOMMENDED:No additional intervention/ imaging/consultati on needed at this time. COMMUNICATION:The imaging findings were not discussed with the patient. Her referring provider has be en notified of the findings. COMMENT: The patient has been notified of the results by letter per MQSA requirements. Additional no tification policies are in place for contacting patient with suspicious or incomplete findings. Quality ID #[id number]: The [employer] recommends an annual screening mammogram for women aged 40 years or over. This facility utilizes a reminder system to ensure that all patients receive reminder letters, and/or direct phone calls for appointments. This includes reminders for routine scr eening mammograms, diagnostic mammograms, or other Breast Imaging Interventions when appropriate. Th is patient will be placed in the appropriate reminder system. The [employer] (ACR) has developed recommendations for screening MRI of the breast s in certain patient populations, to be used in conjunction with mammography. Breast MRI surveillanc e may be appropriate for women with more than 20% lifetime risk of developing breast cancer as deter mined by genetic testing, significant family history of the disease, or history of mantle radiation f or Hodgkins Disease. ACR Practice Guidelines 2008. TECHNICAL DOCUMENTATION: FINDING NUMBER: (1) ASSESSMENT: (1) JOB ID: [id number] [employer]- All Rights Reserved
--- NOTE | 2017-02-19 09:22 | WOMENS IMAGING REPORT ---
EXAM DESCRIPTION: U/S BREAST UNILAT LIMITED COMPLETE DATE/TIME: 02/19/2017 9:11 am REASON FOR STUDY: LEFT BREAST PAIN N64.4 MASTODYNIA FINDINGS: Please see combined report for performance of procedure and radiologic supervision and int erpretation. IMPRESSION: Please see combined report for performance of procedure and radiologic supervision and i nterpretation.
== END ==
LOC: WI 07:44
PROVIDERS: ATTEND Physician Assistant
DX: N64.4 Mastodynia (principal)
CPT/HCPCS: 76642; G0204; 77066

== ENCOUNTER 2017-04-23 20:12 | Inpatient (IN) | payer MEDICARE, OTHER ==
[2017-04-23] MEDS ORDERED: CEFTRIAXONE 1 GM/D5W RTU 1 GM/50 ML RTUPB IV ONE (20:24)
[2017-04-23] MEDS ORDERED: IPRATROPIUM/ALBUTEROL 0.5-2.5 MG/3 ML AMPUL NEB ONE ×2 (20:24→23:42)
[2017-04-23] MEDS ORDERED: AZITHROMYCIN INJ 500 MG VIAL IV ONE (20:24)
--- NOTE | 2017-04-23 20:25 | ER Document Report ---
ED Respiratory Problem - General Chief Complaint: Breathing Difficulty Stated Complaint: DIFFICULTY BREATHING Time Seen by Provider: 04/23/17 20:20 Mode of Arrival: Ambulatory Information source: Patient TRAVEL OUTSIDE OF THE [place] 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 earlier today and sent for an outpatient x-ray which shows a left lower lobe infiltrate, patient is oxygen dependent wearing 3 L at home, arrived to the emergency room on 3 L of oxygen but hypoxic with an O2 sat of 84%, she is tachypneic with even the slightest movement in the room - Related Data Allergies/Adverse Reactions: nitrofurantoin [Nitrofurantoin] Allergy (Severe, Verified 06/19/16 16:24) Hyperactivity povidone-iodine [From Betadine] Allergy (Severe, Verified 06/19/16 16:24) Blisters (topical iodine only) Soap [From Betadine] Allergy (Severe, Verified 06/19/16 16:24) Topical only-blisters gabapentin [From Neurontin] Allergy (Intermediate, Verified 06/19/16 16:24) Rash latex Allergy (Mild, Verified 06/19/16 16:24) metaxalone [From Skelaxin] Allergy (Mild, Verified 06/19/16 16:24) Home Medications: Current Home Medications Acetylcysteine [Mucomist 10% Neb 400 mg/4 mL Vial] 600 mg NEB TID 04/23/17 [ History] Atorvastatin Calcium [Lipitor 40 mg Tablet] 40 mg PO QHS 04/23/17 [History] Past Medical History - General Information source: Patient - Social History Smoking Status: Unknown if Ever Smoked Family History: Reviewed & Not Pertinent, Hypertension - Past Medical History Cardiac Medical History: Reports: Hx Hypertension Denies: Hx Coronary Artery Disease, Hx Heart Attack Pulmonary Medical History: Reports: Hx Asthma, Hx Bronchitis, Hx COPD Denies: Hx Pneumonia Neurological Medical History: Reports: Hx Cerebrovascular Accident - 11/2005 during sx, 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 Denies: Hx Seizures Renal/ Medical History: Denies: Hx Peritoneal Dialysis GI Medical History: Denies: Hx Hepatitis, Hx Ulcer Musculoskeltal Medical History: Reports Hx Arthritis - Osteo Psychiatric Medical History: Denies: Hx Depression Infectious Medical History: Denies: Hx Hepatitis Past Surgical History: Denies: Hx Hysterectomy, Hx Mastectomy, Hx Open Heart Surgery, Hx Pacemaker - Immunizations Hx Diphtheria, Pertussis, Tetanus Vaccination: Yes Hx Pneumococcal Vaccination: 04/02/11 Review of Systems - Review of Systems Constitutional: No symptoms reported EENT: No symptoms reported Cardiovascular: No symptoms reported Respiratory: See HPI Gastrointestinal: No symptoms reported Genitourinary: No symptoms reported Female Genitourinary: No symptoms reported Musculoskeletal: No symptoms reported Skin: No symptoms reported Hematologic/Lymphatic: No symptoms reported Neurological/Psychological: No symptoms reported -: Yes All other systems reviewed and negative Physical Exam - Vital signs Vitals: Temp Pulse Resp BP Pulse Ox 99.0 F 102 H 26 H 147/83 H 84 L 04/23/17 20:17 04/23/17 20:17 04/23/17 20:17 04/23/17 20:17 04/23/17 20:17 Interpretation: Tachycardic, Hypoxic, Tachypneic - General General appearance: Alert In distress: Mild - HEENT Head: Normocephalic, Atraumatic Eyes: Normal Conjunctiva: Normal Extraocular movements intact: Yes Eyelashes: Normal Pupils: PERRL - Respiratory Respiratory status: No respiratory distress Chest status: Nontender Breath sounds: Nonproductive cough, Rhonchi, Wheezing Chest palpation: Normal - Cardiovascular Rhythm: Regular, Tachycardia Heart sounds: Normal auscultation Murmur: No - Abdominal Inspection: Normal Distension: No distension Bowel sounds: Normal Tenderness: Nontender Organomegaly: No organomegaly - Back Back: Normal, Nontender - Extremities General upper extremity: Normal inspection, Nontender, Normal color, Normal ROM , Normal temperature General lower extremity: Normal inspection, Nontender, Normal color, Normal ROM , Normal temperature, Normal weight bearing. No: Jaclyn's sign - Neurological Neuro grossly intact: Yes Cognition: Normal Orientation: AAOx4 [place] Coma Scale Eye Opening: Spontaneous [place] Coma Scale Verbal: Oriented [place] Coma Scale Motor: Obeys Commands [place] Coma Scale Total: 15 Speech: Normal Motor strength normal: LUE, RUE, LLE, RLE Sensory: Normal - Psychological Associated symptoms: Normal affect, Normal mood - Skin Skin Temperature: Warm Skin Moisture: Dry Skin Color: Pale Course - Re-evaluation Re-evalutation: 04/23/17 22:16 Patient with evidence of pneumonia on outpatient x-ray, today she is tachypneic and hypoxic on arrival, she received breathing treatments IV antibiotics and patient was discussed with primary care provider who agrees to admit for further evaluation and treatment - Vital Signs Vital signs: Temp Pulse Resp BP Pulse Ox 99.0 F 102 H 30 H 134/107 H 98 04/23/17 20:17 04/23/17 20:17 04/23/17 22:00 04/23/17 21:30 04/23/17 21:30 - Laboratory Result Diagrams: 04/23/17 21:00 04/23/17 21:00 Laboratory results interpreted by me: 04/23/17 04/23/17 21:00 21:00 WBC 10.7 H RBC 3.61 L Hgb 11.8 L Hct 34.8 L Plt Count 107 L Seg Neuts % (Manual) 86 H Lymphocytes % (Manual) 4 L Abs Neuts (Manual) 9.2 H Abs Lymphs (Manual) 0.4 L Sodium 131.0 L Chloride 92 L Glucose 118 H - Diagnostic Test Radiology reviewed: Image reviewed, Reports reviewed - EKG Interpretation by Me EKG shows normal: Sinus rhythm Rate: Tachycardia - Transfer of Care Care transferred to following provider: Dr. Tiwari Critical Care Note - Critical Care Note Total time excluding time spent on procedures (mins): 30 Comments: Patient tachypneic and hypoxic on arrival, requiring immediate intervention, monitoring and eventual admission for pneumonia Discharge - Discharge Clinical Impression: COPD (chronic obstructive pulmonary disease) with acute bronchitis, Hypoxia Pneumonia Qualifiers: Pneumonia type: due to unspecified organism Laterality: left Lung location: lower lobe of lung Qualified Code(s): J18.1 - Lobar pneumonia, unspecified organism Condition: Fair Disposition: ADMITTED INPATIENT Admitting Provider: Te Unit Admitted: Telemetry
[2017-04-23 21:22] LABS: HEMATOCRIT 34.8 % (36.0-47.0); HEMOGLOBIN 11.8 g/dL (12.0-15.5); HGB HCT DIFFERENCE 0.6; MEAN CORPUSCULAR HEMOGLOBIN 32.6 pg (27.0-33.4); MEAN CORPUSCULAR HGB CONC 33.8 g/dL (32.0-36.0); MEAN CORPUSCULAR VOLUME 97 fl (80-97); RED BLOOD COUNT 3.61 10^6/uL (3.72-5.28); RED CELL DISTRIBUTION WIDTH 13.6 % (11.5-14.0); WHITE BLOOD COUNT 10.7 10^3/uL (4.0-10.5)
[2017-04-23 21:28] LABS: ANION GAP 11 (5-19); BLOOD UREA NITROGEN 14 mg/dL (7-20); CALCIUM 8.9 mg/dL (8.4-10.2); CARBON DIOXIDE 28 mmol/L (22-30); CHLORIDE 92 mmol/L (98-107); CREATININE RESULT 0.52 mg/dL (0.52-1.25); GLUCOSE 118 mg/dL (75-110)
[2017-04-23 21:42] LABS: BASOPHILS % (MANUAL) 0 % (0-2); EOSINOPHILS % (MANUAL) 0 % (0-6); LYMPHOCYTES % (MANUAL) 4 % (13-45); TOTAL CELLS COUNTED 100
[2017-04-23 21:43] LABS: TOXIC GRANULATION SLIGHT
--- NOTE | 2017-04-23 21:43 | EKG REPORT ---
SEVERITY:- ABNORMAL ECG - SINUS TACHYCARDIA LEFT ATRIAL ABNORMALITY : Confirmed by: Eulogio Spencer MD 23-Apr-2017 21:43:01
[2017-04-23 22:25] LABS: APPEARANCE,URINE SLIGHTLY-CLOUDY; BILIRUBIN,URINE NEGATIVE (NEGATIVE); GLUCOSE, URINE NEGATIVE (NEGATIVE); KETONES,URINE NEGATIVE (NEGATIVE); LEUKOCYTE ESTERASE,URINE LARGE (NEGATIVE); NITRITE,URINE NEGATIVE (NEGATIVE); PROTEIN,URINE 30 mg/dL (NEGATIVE); URINE SPECIFIC GRAVITY 1.009; UROBILINOGEN,URINE NEGATIVE mg/dL (<2.0)
[2017-04-23] MEDS ORDERED: GUAIFENESIN SYRP 200 MG/10 ML UDC PO PRN (22:30)
[2017-04-23] MEDS ORDERED: ACETAMINOPHEN 325 MG TABLET PO PRN (22:30)
[2017-04-23] MEDS ORDERED: NYSTATIN TOPICAL POWDER 15 GM TOP PRN (22:35)
[2017-04-23] MEDS ORDERED: DOCUSATE SODIUM 100 MG CAPSULE PO PRN (22:35)
[2017-04-23] MEDS ORDERED: LEVETIRACETAM 500 MG TABLET PO ONE (23:00)
[2017-04-24] MEDS: IPRATROPIUM/ALBUTEROL 0.5-2.5 MG/3 ML AMPUL NEB SCH ×4 (00:05→19:42)
[2017-04-24] MEDS: NORMAL SALINE 1000 ML 1,000 ML IV PRN ×2 (02:30→21:11)
[2017-04-24 06:22] LABS: ABSOLUTE LYMPHOCYTES (AUTO) 0.6 10^3/uL (0.5-4.7); ABSOLUTE NEUT (AUTO) 8.9 10^3/uL (1.7-8.2); BASOPHILS % (AUTO) 0.1 % (0-2); HEMATOCRIT 29.8 % (36.0-47.0); HEMOGLOBIN 10.2 g/dL (12.0-15.5); HGB HCT DIFFERENCE 0.8; LYMPHOCYTES % (AUTO) 5.9 % (13-45); MEAN CORPUSCULAR HEMOGLOBIN 32.9 pg (27.0-33.4); MEAN CORPUSCULAR HGB CONC 34.1 g/dL (32.0-36.0); MEAN CORPUSCULAR VOLUME 96 fl (80-97); MONOCYTES % (AUTO) 9.3 % (3-13); RED BLOOD COUNT 3.09 10^6/uL (3.72-5.28); RED CELL DISTRIBUTION WIDTH 13.6 % (11.5-14.0); SEGMENTED NEUTROPHILS % (AUTO) 84.7 % (42-78); WHITE BLOOD COUNT 10.5 10^3/uL (4.0-10.5)
[2017-04-24] MEDS: LANSOPRAZOLE 30 MG TAB.RAP.DR PO SCH ×2 (06:32→17:19)
[2017-04-24] MEDS ORDERED: ACETYLCYSTEINE 10% NEB 400 MG/4 ML VIAL NEB ONE (09:00)
[2017-04-24] MEDS ORDERED: IPRATROPIUM/ALBUTEROL 0.5-2.5 MG/3 ML AMPUL NEB ONE (09:00)
[2017-04-24] MEDS ORDERED: ENOXAPARIN SODIUM INJ 30 MG/0.3 ML DISP.SYRIN SUBCUT SCH (10:00)
[2017-04-24] MEDS ORDERED: (PENDING PHARMACY ID) (Folic Acid/Multivit-Min/Lutein [Centrum Silver Chewable Tablet] 1 E PO SCH (10:00)
[2017-04-24] MEDS ORDERED: TIOTROPIUM BROMIDE DPI 5 CAP/KIT (18 MCG/CAP) IH SCH (10:00)
[2017-04-24] MEDS ORDERED: CEFEPIME 2 GM/D5W RTU 2 GM/50 ML RTUPB IV ONE (10:00)
[2017-04-24] MEDS ORDERED: LACTOBACILLUS ACIDOPHILUS 250 MG TAB PO SCH (10:00)
[2017-04-24] MEDS: CEFEPIME 2 GM/D5W RTU 2 GM/50 ML RTUPB IV SCH (10:07)
[2017-04-24] MEDS: FLUTICASONE/SALMETEROL DISKUS 500-50 MCG/DOSE IH SCH ×2 (10:09→21:08)
[2017-04-24] MEDS: LEVETIRACETAM 500 MG TABLET PO SCH ×2 (10:10→21:07)
[2017-04-24] MEDS: GUAIFENESIN 600 MG TABLET.SA PO SCH ×2 (10:11→21:07)
[2017-04-24] MEDS: ASPIRIN 81 MG TABLET, CHEWABLE PO SCH (10:11)
[2017-04-24] MEDS: LACTOBACILLUS ACIDOPHILUS 250 MG TAB PO SCH (10:30)
--- NOTE | 2017-04-24 11:09 | PDOC H&P ---
History of Present Illness Admission Date/PCP: 04/23/17 22:30 CHRISTIAN SMITH MD Patient complains of: Shortness of the breath and the cough and the pneumonia History of Present Illness: ANNA AMEZCUA is a 82 year old female This is a 82-year-old female with significant history of the COPD, chronic bronchiectasis and a history of the hypertension's hyperlipidemia history of the stroke and multiple other comorbidity went to see a Dr. diehl's pairer odds office and the patient have a chest x-ray was done and episodes of left lower lobe pneumonia and patient was sent to the emergency department Patients at this point admitting the hospital for further IV antibiotic Patients usually require 2 L of oxygen at home and patient's oxygen saturation was 84 persons and increased oxygen was dropped to 3-4 L and currently running 96 Patient's currently denied any chest pain denied any shortness of the breath Denied any headache no nausea no vomiting Past Medical History Cardiac Medical History: Reports: Hypertension Denies: Coronary Artery Disease, Myocardial Infarction Pulmonary Medical History: Reports: Asthma, Bronchitis, Chronic Obstructive Pulmonary Disease (COPD) Denies: Pneumonia Neurological Medical History: Reports: Hemorrhagic CVA Denies: Seizures GI Medical History: Denies: Hepatitis Musculoskeltal Medical History: Reports: Arthritis - Osteo Psychiatric Medical History: Reports: Depression Hematology: Reports: Anemia Denies: Sickle Cell Disease Past Surgical History Past Surgical History: Denies: Amputation, Hysterectomy, Mastectomy, Pacemaker Social History Smoking Status: Former Smoker Last Time Smoked: quit smoking in the early Frequency of Alcohol Use: None Hx Recreational Drug Use: No Drugs: None Hx Prescription Drug Abuse: No Family History Family History: Reviewed & Not Pertinent, Hypertension Parental Family History Reviewed: Yes Children Family History Reviewed: Yes Sibling(s) Family History Reviewed.: Yes Medication/Allergy Home Medications: RX: Aspirin [Aspirin 81 mg Chewable Tablet] 81 mg PO DAILY 08/25/16 RX: Diclofenac Sodium [Voltaren] 4 gm TOP BID PRN 08/25/16 RX: Docusate Sodium [Colace 100 mg Capsule] 300 mg PO DAILYP PRN 08/25/16 RX: Fluticasone/Salmeterol [Advair 500-50 Diskus 14 Dose/Diskus] 1 puff IH BID 08/25/16 RX: Lactobacillus Acidophilus [Acidophilus] 1 each PO DAILY 08/25/16 RX: Levetiracetam [Keppra 500 mg Tablet] 500 mg PO Q12 08/25/16 RX: Montelukast Sodium [Singulair] 10 mg PO QHS PRN 08/25/16 RX: Nystatin [Mycostatin Topical Powder 15 gm] 1 applic TOP BIDP PRN 08/25/16 RX: Omeprazole 30 mg PO BID 08/25/16 RX: Sertraline HCl [Zoloft] 100 mg PO DAILY 08/25/16 RX: Tiotropium [place] [Spiriva Handihaler 5 Cap/Kit (18 Mcg/Cap)] 1 cap IH DAILY 08/25/16 RX: Trazodone HCl [Desyrel] 150 mg PO QHS 08/25/16 Albuterol Sulfate [Proair HFA] 1 - 2 puff IH Q4 PRN 04/23/17 Atorvastatin Calcium [Lipitor 40 mg Tablet] 40 mg PO QHS 04/23/17 RX: Acetylcysteine [Mucomist 10% Neb 400 mg/4 mL Vial] 600 mg NEB TID 04/23/17 Acetylcysteine [A-Dmfkzs-h-Cysteine] 600 mg PO ASDIR 04/24/17 Multivitamin [Multiple Vitamins] 1 tab PO DAILY 04/24/17 Allergies/Adverse Reactions: nitrofurantoin [Nitrofurantoin] Allergy (Severe, Verified 06/19/16 16:24) Hyperactivity povidone-iodine [From Betadine] Allergy (Severe, Verified 06/19/16 16:24) Blisters (topical iodine only) Soap [From Betadine] Allergy (Severe, Verified 06/19/16 16:24) Topical only-blisters gabapentin [From Neurontin] Allergy (Intermediate, Verified 06/19/16 16:24) Rash latex Allergy (Mild, Verified 06/19/16 16:24) metaxalone [From Skelaxin] Allergy (Mild, Verified 06/19/16 16:24) Review of Systems Constitutional: ABSENT: chills, fever(s), headache(s), weight gain, weight loss Eyes: ABSENT: visual disturbances Ears: ABSENT: hearing changes Cardiovascular: ABSENT: chest pain, dyspnea on exertion, edema, orthropnea, palpitations Respiratory: PRESENT: cough, dyspnea. ABSENT: hemoptysis Gastrointestinal: ABSENT: abdominal pain, constipation, diarrhea, hematemesis, hematochezia, nausea, vomiting Genitourinary: ABSENT: dysuria, hematuria Musculoskeletal: ABSENT: joint swelling Integumentary: ABSENT: rash, wounds Neurological: ABSENT: abnormal gait, abnormal speech, confusion, dizziness, focal weakness, syncope Psychiatric: ABSENT: anxiety, depression, homidical ideation, suicidal ideation Endocrine: ABSENT: cold intolerance, heat intolerance, menstrual abnormalities, polydipsia, polyuria Hematologic/Lymphatic: ABSENT: easy bleeding, easy bruising, lymphadenopathy Physical Exam Vital Signs: Temp Pulse Resp BP Pulse Ox 97.9 F 80 24 H 138/85 H 95 04/24/17 09:50 04/24/17 09:50 04/24/17 09:50 04/24/17 09:50 04/24/17 09:50 Pulse Oximeter Continuous Start: 04/23/17 22: 33 Freq: RTQ4 Status: Active Document 04/24/17 08:38 [facility] (Rec: 04/24/17 09:05 [facility] [email or web address]) Pulse Oximetry Assessment Oxygen Saturation (92-100) 95 Oxygen Flow Rate (L/min) 3 Oxygen Delivery Method Nasal Cannula Equipment Usage Equipment in Use Continuous SpO2 Machine # 10 Intake & Output 04/23/17 04/24/17 04/25/17 06:59 06:59 06:59 Intake Total 480 Output Total 700 Balance -220 Weight 73.4 kg General appearance: PRESENT: no acute distress, well-developed, well-nourished Head exam: PRESENT: atraumatic, normocephalic Eye exam: PRESENT: conjunctiva pink, EOMI, PERRLA. ABSENT: scleral icterus Ear exam: PRESENT: normal external ear exam Mouth exam: PRESENT: moist, tongue midline Neck exam: PRESENT: full ROM. ABSENT: carotid bruit, JVD, lymphadenopathy, thyromegaly Respiratory exam: PRESENT: decreased breath sounds. ABSENT: rhonchi, wheezes Cardiovascular exam: PRESENT: RRR. ABSENT: diastolic murmur, rubs, systolic murmur Pulses: PRESENT: normal dorsalis pedis pul, +2 pedal pulses bilateral Vascular exam: PRESENT: normal capillary refill GI/Abdominal exam: PRESENT: normal bowel sounds, soft. ABSENT: distended, guarding, mass, organolmegaly, rebound, tenderness Rectal exam: PRESENT: deferred Neurological exam: PRESENT: alert, awake, oriented to person, oriented to place , oriented to time, oriented to situation. ABSENT: motor sensory deficit Psychiatric exam: PRESENT: appropriate affect, normal mood. ABSENT: homicidal ideation, suicidal ideation Skin exam: PRESENT: dry, intact, warm. ABSENT: cyanosis, rash Results Laboratory Results: 04/24/17 05:36 04/24/17 05:36 WBC 10.5 RBC 3.09 L Hgb 10.2 L Hct 29.8 L MCV 96 MCH 32.9 MCHC 34.1 RDW 13.6 Plt Count 96 L Seg Neutrophils % 84.7 H Lymphocytes % 5.9 L Monocytes % 9.3 Eosinophils % 0.0 Basophils % 0.1 Absolute Neutrophils 8.9 H Absolute Lymphocytes 0.6 Absolute Monocytes 1.0 Absolute Eosinophils 0.0 Absolute Basophils 0.0 Assessment & Plan - Diagnosis (1) COPD (chronic obstructive pulmonary disease) with acute bronchitis Is this a current diagnosis for this admission?: Yes Plan: Continues a nebulizer treatments (2) Hypoxia Is this a current diagnosis for this admission?: Yes Plan: Due to the underlying pneumonia and COPD acute exacerbations continues to pulse ox (3) Pneumonia Qualifiers: Pneumonia type: due to unspecified organism Laterality: left Lung location: lower lobe of lung Qualified Code(s): J18.1 - Lobar pneumonia, unspecified organism Is this a current diagnosis for this admission?: Yes Plan: Continues to IV antibiotic at the sputum culture (4) Urinary tract infection Qualifiers: Urinary tract infection type: site unspecified Is this a current diagnosis for this admission?: Yes Plan: Continue to IV antibiotic and follow the culture (5) Hyperlipidemia Qualifiers: Hyperlipidemia type: unspecified Qualified Code(s): E78.5 - Hyperlipidemia , unspecified Is this a current diagnosis for this admission?: Yes (6) Depression Qualifiers: Depression Type: major depressive disorder Is this a current diagnosis for this admission?: Yes Plan: Currently stable (7) Stroke Qualifiers: CVA mechanism: unspecified Qualified Code(s): I63.9 - Cerebral infarction, unspecified Is this a current diagnosis for this admission?: Yes (8) Hypertension Qualifiers: Hypertension type: essential hypertension Is this a current diagnosis for this admission?: Yes Plan: Currently all stable - Time Time Spent: 30 to 50 Minutes Medications reviewed and adjusted accordingly: Yes Anticipated discharge: Home Within: Other - Inpatient Certification Medical Necessity: Need For IV Fluids, Need for IV Antibiotics Post Hospital Care: D/C [employer] Administrator Documentation - Plan Summary Plan Summary: Continues to IV antibiotic and IV fluid and nebulizer treatments. Discussed with the patient and her regarding the patient's current conditions
[2017-04-24] MEDS ORDERED: ACETYLCYSTEINE 10% NEB 400 MG/4 ML VIAL NEB SCH (14:00)
[2017-04-24] MEDS: ACETYLCYSTEINE 10% NEB 400 MG/4 ML VIAL NEB SCH (19:41)
[2017-04-24] MEDS: ATORVASTATIN CALCIUM 40 MG TABLET PO SCH (21:06)
[2017-04-24] MEDS: MONTELUKAST SODIUM 10 MG TABLET PO SCH (21:07)
[2017-04-24] MEDS: AZITHROMYCIN 500 MG in DEXTROSE 5%-WATER 250 ML IV SCH (21:52)
[2017-04-25] MEDS: LANSOPRAZOLE 30 MG TAB.RAP.DR PO SCH ×2 (05:33→16:06)
[2017-04-25 06:54] LABS: ABSOLUTE LYMPHOCYTES (AUTO) 0.4 10^3/uL (0.5-4.7); ABSOLUTE MONOCYTES (AUTO) 0.8 10^3/uL (0.1-1.4); ABSOLUTE NEUT (AUTO) 7.3 10^3/uL (1.7-8.2); BASOPHILS % (AUTO) 0.3 % (0-2); EOSINOPHILS % (AUTO) 0.3 % (0-6); HEMATOCRIT 30.7 % (36.0-47.0); HEMOGLOBIN 10.3 g/dL (12.0-15.5); HGB HCT DIFFERENCE 0.2; LYMPHOCYTES % (AUTO) 5.2 % (13-45); MEAN CORPUSCULAR HEMOGLOBIN 32.6 pg (27.0-33.4); MEAN CORPUSCULAR HGB CONC 33.7 g/dL (32.0-36.0); MEAN CORPUSCULAR VOLUME 97 fl (80-97); MONOCYTES % (AUTO) 9.4 % (3-13); RED BLOOD COUNT 3.17 10^6/uL (3.72-5.28); RED CELL DISTRIBUTION WIDTH 13.7 % (11.5-14.0); SEGMENTED NEUTROPHILS % (AUTO) 84.8 % (42-78); WHITE BLOOD COUNT 8.6 10^3/uL (4.0-10.5)
[2017-04-25] MEDS: IPRATROPIUM/ALBUTEROL 0.5-2.5 MG/3 ML AMPUL NEB SCH ×4 (08:43→20:09)
[2017-04-25] MEDS: ACETYLCYSTEINE 10% NEB 400 MG/4 ML VIAL NEB SCH ×2 (08:44→20:09)
[2017-04-25] MEDS: FLUTICASONE/SALMETEROL DISKUS 500-50 MCG/DOSE IH SCH ×2 (10:44→21:05)
[2017-04-25] MEDS: GUAIFENESIN 600 MG TABLET.SA PO SCH ×2 (10:45→21:04)
[2017-04-25] MEDS: ASPIRIN 81 MG TABLET, CHEWABLE PO SCH (10:45)
[2017-04-25] MEDS: CEFEPIME 2 GM/D5W RTU 2 GM/50 ML RTUPB IV SCH (10:52)
[2017-04-25] MEDS: LEVETIRACETAM 500 MG TABLET PO SCH ×2 (10:52→21:04)
[2017-04-25] MEDS: LACTOBACILLUS ACIDOPHILUS 250 MG TAB PO SCH (11:09)
--- NOTE | 2017-04-25 14:09 | PDOC PROGRESS REPORT ---
Subjective Progress Note for:: 04/25/17 Subjective:: pt is currently doing much better. Patient's unable to sleep last night patients was taking the trazodone at home She is denied any chest pain without any shortness of the breath Physical Exam Vital Signs: Temp Pulse Resp BP Pulse Ox 97.9 F 82 20 147/83 H 94 04/25/17 12:25 04/25/17 12:32 04/25/17 12:32 04/25/17 12:25 04/25/17 12:32 Pulse Oximeter Continuous Start: 04/23/17 22: 33 Freq: RTQ4 Status: Active Document 04/25/17 12:32 JSM (Rec: 04/25/17 12:48 JSM [email or web address]) Pulse Oximetry Assessment Oxygen Saturation (92-100) 94 Oxygen Flow Rate (L/min) 3 Oxygen Delivery Method Nasal Cannula Equipment Usage Equipment in Use Continuous SpO2 Machine # 10 Intake & Output 04/24/17 04/25/17 04/26/17 06:59 06:59 06:59 Intake Total 480 2044 Output Total 700 1450 Balance -220 594 Weight 73.4 kg 73 kg General appearance: PRESENT: no acute distress, well-developed, well-nourished Head exam: PRESENT: atraumatic, normocephalic Eye exam: PRESENT: conjunctiva pink, EOMI, PERRLA. ABSENT: scleral icterus Ear exam: PRESENT: normal external ear exam Mouth exam: PRESENT: moist, tongue midline Neck exam: PRESENT: full ROM. ABSENT: carotid bruit, JVD, lymphadenopathy, thyromegaly Respiratory exam: PRESENT: clear to auscultation esperanza Cardiovascular exam: PRESENT: RRR. ABSENT: diastolic murmur, rubs, systolic murmur Pulses: PRESENT: normal dorsalis pedis pul, +2 pedal pulses bilateral Vascular exam: PRESENT: normal capillary refill GI/Abdominal exam: PRESENT: normal bowel sounds, soft. ABSENT: distended, guarding, mass, organolmegaly, rebound, tenderness Rectal exam: PRESENT: deferred Neurological exam: PRESENT: alert, awake, oriented to person, oriented to place , oriented to time, oriented to situation, CN II-XII grossly intact. ABSENT: motor sensory deficit Psychiatric exam: PRESENT: appropriate affect, normal mood. ABSENT: homicidal ideation, suicidal ideation Skin exam: PRESENT: dry, intact, warm. ABSENT: cyanosis, rash Results Laboratory Results: 04/25/17 06:07 04/25/17 06:07 WBC 8.6 RBC 3.17 L Hgb 10.3 L Hct 30.7 L MCV 97 MCH 32.6 MCHC 33.7 RDW 13.7 Plt Count 102 L Seg Neutrophils % 84.8 H Lymphocytes % 5.2 L Monocytes % 9.4 Eosinophils % 0.3 Basophils % 0.3 Absolute Neutrophils 7.3 Absolute Lymphocytes 0.4 L Absolute Monocytes 0.8 Absolute Eosinophils 0.0 Absolute Basophils 0.0 Assessment & Plan - Diagnosis (1) COPD (chronic obstructive pulmonary disease) with acute bronchitis Is this a current diagnosis for this admission?: Yes Plan: Continues a nebulizer treatments (2) Hypoxia Is this a current diagnosis for this admission?: Yes Plan: Due to the underlying pneumonia and COPD acute exacerbations continues to pulse ox (3) Pneumonia Qualifiers: Pneumonia type: due to unspecified organism Laterality: left Lung location: lower lobe of lung Qualified Code(s): J18.1 - Lobar pneumonia, unspecified organism Is this a current diagnosis for this admission?: Yes Plan: Continues to IV antibiotic at the sputum culture (4) Urinary tract infection Qualifiers: Urinary tract infection type: site unspecified Is this a current diagnosis for this admission?: Yes Plan: Continue to IV antibiotic and follow the culture (5) Hyperlipidemia Qualifiers: Hyperlipidemia type: unspecified Qualified Code(s): E78.5 - Hyperlipidemia , unspecified Is this a current diagnosis for this admission?: Yes (6) Depression Qualifiers: Depression Type: major depressive disorder Is this a current diagnosis for this admission?: Yes Plan: Currently stable (7) Stroke Qualifiers: CVA mechanism: unspecified Qualified Code(s): I63.9 - Cerebral infarction, unspecified Is this a current diagnosis for this admission?: Yes (8) Hypertension Qualifiers: Hypertension type: essential hypertension Is this a current diagnosis for this admission?: Yes Plan: Currently all stable - Time Time Spent with patient: 15-24 minutes Medications reviewed and adjusted accordingly: Yes Anticipated discharge: Home Within: within 48 hours - Inpatient Certification Medical Necessity: Need for IV Antibiotics 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
--- NOTE | 2017-04-25 15:45 | RADIOLOGY REPORT (SQ) ---
EXAM DESCRIPTION: CHEST PA/LAT COMPLETED DATE/TIME: 04/25/2017 3:38 pm REASON FOR STUDY: copd/pnemonia COMPARISON: August 2016 EXAM PARAMETERS: NUMBER OF VIEWS: two views TECHNIQUE: Digital Frontal and Lateral radiographic views of the chest acquired. RADIATION DOSE: NA LIMITATIONS: none FINDINGS: LUNGS AND PLEURA: There is increased density in left lung base with blunting of the left c ostophrenic angle consistent with a small left pleural effusion. There is associated atelectasis or infiltrate in the left lung base. Remaining lung sears are clear. I cannot exclude a component of obstructive lung disease. MEDIASTINUM AND HILAR STRUCTURES: No masses or contour abnormalities. HEART AND VASCULAR STRUCTURES: Heart normal size. No evidence for failure. BONES: No acute findings. HARDWARE: None in the chest. OTHER: No other significant finding. IMPRESSION: Left basilar density as noted above TECHNICAL DOCUMENTATION: JOB ID: [id number] [employer]- All Rights Reserved
[2017-04-25] MEDS: ATORVASTATIN CALCIUM 40 MG TABLET PO SCH (21:04)
[2017-04-25] MEDS: AZITHROMYCIN 500 MG in DEXTROSE 5%-WATER 250 ML IV SCH (21:04)
[2017-04-25] MEDS: TRAZODONE HCL 50 MG TABLET PO SCH (21:05)
[2017-04-25] MEDS: MONTELUKAST SODIUM 10 MG TABLET PO SCH (21:05)
[2017-04-26] MEDS: LANSOPRAZOLE 30 MG TAB.RAP.DR PO SCH ×2 (06:28→18:25)
[2017-04-26 06:41] LABS: ABSOLUTE EOSINOPHILS # (AUTO) 0.1 10^3/uL (0.0-0.6); ABSOLUTE LYMPHOCYTES (AUTO) 0.5 10^3/uL (0.5-4.7); ABSOLUTE MONOCYTES (AUTO) 0.6 10^3/uL (0.1-1.4); BASOPHILS % (AUTO) 0.1 % (0-2); EOSINOPHILS % (AUTO) 1.3 % (0-6); HEMOGLOBIN 11.3 g/dL (12.0-15.5); HGB HCT DIFFERENCE -0.1; LYMPHOCYTES % (AUTO) 8.7 % (13-45); MEAN CORPUSCULAR HGB CONC 33.3 g/dL (32.0-36.0); MEAN CORPUSCULAR VOLUME 96 fl (80-97); RED BLOOD COUNT 3.55 10^6/uL (3.72-5.28); RED CELL DISTRIBUTION WIDTH 13.5 % (11.5-14.0); SEGMENTED NEUTROPHILS % (AUTO) 79.9 % (42-78); WHITE BLOOD COUNT 6.3 10^3/uL (4.0-10.5)
[2017-04-26 07:04] LABS: ANION GAP 9 (5-19); BLOOD UREA NITROGEN 9 mg/dL (7-20); CALCIUM 9.2 mg/dL (8.4-10.2); CARBON DIOXIDE 29 mmol/L (22-30); CHLORIDE 98 mmol/L (98-107); CREATININE RESULT 0.45 mg/dL (0.52-1.25); GLUCOSE 94 mg/dL (75-110); POTASSIUM 3.8 mmol/L (3.6-5.0); SODIUM 135.9 mmol/L (137-145)
[2017-04-26] MEDS: IPRATROPIUM/ALBUTEROL 0.5-2.5 MG/3 ML AMPUL NEB SCH ×4 (08:04→19:51)
[2017-04-26] MEDS: ACETYLCYSTEINE 10% NEB 400 MG/4 ML VIAL NEB SCH ×2 (08:05→19:50)
--- NOTE | 2017-04-26 08:33 | PDOC PROGRESS REPORT ---
Subjective Progress Note for:: 04/26/17 Subjective:: Patient is doing much betterPatient's denied any cough no congestion'sNo chest pain Physical Exam Vital Signs: Temp Pulse Resp BP Pulse Ox 97.9 F 87 18 134/76 H 97 04/26/17 04:02 04/26/17 08:14 04/26/17 08:14 04/26/17 04:02 04/26/17 08:14 Pulse Oximeter Continuous Start: 04/23/17 22: 33 Freq: RTQ4 Status: Active Document 04/26/17 08:14 JDR (Rec: 04/26/17 08:16 JDR [email or web address]) Pulse Oximetry Assessment Oxygen Saturation (92-100) 97 Oxygen Flow Rate (L/min) 3 Oxygen Delivery Method Nasal Cannula Equipment Usage Equipment in Use Continuous SpO2 Machine # 10 Intake & Output 04/25/17 04/26/17 04/27/17 06:59 06:59 06:59 Intake Total 2044 1638 Output Total 1450 1910 Balance 594 -272 Weight 73 kg 73 kg General appearance: PRESENT: no acute distress, well-developed, well-nourished Head exam: PRESENT: atraumatic, normocephalic Eye exam: PRESENT: conjunctiva pink, EOMI, PERRLA. ABSENT: scleral icterus Ear exam: PRESENT: normal external ear exam Mouth exam: PRESENT: moist, tongue midline Neck exam: PRESENT: full ROM. ABSENT: carotid bruit, JVD, lymphadenopathy, thyromegaly Respiratory exam: PRESENT: clear to auscultation esperanza Cardiovascular exam: PRESENT: RRR. ABSENT: diastolic murmur, rubs, systolic murmur Pulses: PRESENT: normal dorsalis pedis pul, +2 pedal pulses bilateral Vascular exam: PRESENT: normal capillary refill GI/Abdominal exam: PRESENT: normal bowel sounds, soft. ABSENT: distended, guarding, mass, organolmegaly, rebound, tenderness Rectal exam: PRESENT: deferred Neurological exam: PRESENT: alert, awake, oriented to person, oriented to place , oriented to time, oriented to situation, CN II-XII grossly intact. ABSENT: motor sensory deficit Psychiatric exam: PRESENT: appropriate affect, normal mood. ABSENT: homicidal ideation, suicidal ideation Skin exam: PRESENT: dry, intact, warm. ABSENT: cyanosis, rash Results Laboratory Results: 04/26/17 06:18 04/26/17 06:18 04/26/17 04/26/17 06:18 06:18 WBC 6.3 RBC 3.55 L Hgb 11.3 L Hct 34.0 L MCV 96 MCH 32.0 MCHC 33.3 RDW 13.5 Plt Count 114 L Seg Neutrophils % 79.9 H Lymphocytes % 8.7 L Monocytes % 10.0 Eosinophils % 1.3 Basophils % 0.1 Absolute Neutrophils 5.0 Absolute Lymphocytes 0.5 Absolute Monocytes 0.6 Absolute Eosinophils 0.1 Absolute Basophils 0.0 Sodium 135.9 L Potassium 3.8 Chloride 98 Carbon Dioxide 29 Anion Gap 9 BUN 9 Creatinine 0.45 L Est GFR ( Amer) > 60 Est GFR (Non-Af Amer) > 60 Glucose 94 Calcium 9.2 Impressions: Chest X-Ray 04/25/17 00:00 IMPRESSION: Left basilar density as noted above Assessment & Plan - Diagnosis (1) COPD (chronic obstructive pulmonary disease) with acute bronchitis Is this a current diagnosis for this admission?: Yes Plan: Continues a nebulizer treatments (2) Hypoxia Is this a current diagnosis for this admission?: Yes Plan: Due to the underlying pneumonia and COPD acute exacerbations continues to pulse ox (3) Pneumonia Qualifiers: Pneumonia type: due to unspecified organism Laterality: left Lung location: lower lobe of lung Qualified Code(s): J18.1 - Lobar pneumonia, unspecified organism Is this a current diagnosis for this admission?: Yes Plan: Continues to IV antibiotic at the sputum culture (4) Urinary tract infection Qualifiers: Urinary tract infection type: site unspecified Is this a current diagnosis for this admission?: Yes Plan: Continue to IV antibiotic and follow the culture (5) Hyperlipidemia Qualifiers: Hyperlipidemia type: unspecified Qualified Code(s): E78.5 - Hyperlipidemia , unspecified Is this a current diagnosis for this admission?: Yes (6) Depression Qualifiers: Depression Type: major depressive disorder Is this a current diagnosis for this admission?: Yes Plan: Currently stable (7) Stroke Qualifiers: CVA mechanism: unspecified Qualified Code(s): I63.9 - Cerebral infarction, unspecified Is this a current diagnosis for this admission?: Yes (8) Hypertension Qualifiers: Hypertension type: essential hypertension Is this a current diagnosis for this admission?: Yes Plan: Currently all stable - Time Time Spent with patient: 15-24 minutes Medications reviewed and adjusted accordingly: Yes Within: within 24 hours - Inpatient Certification Medical Necessity: Need Close Monitoring Due to Risk of Patient Decompensation, Need for IV Antibiotics 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
[2017-04-26] MEDS: LACTOBACILLUS ACIDOPHILUS 250 MG TAB PO SCH (09:09)
[2017-04-26] MEDS: GUAIFENESIN 600 MG TABLET.SA PO SCH ×2 (09:09→22:16)
[2017-04-26] MEDS: LEVETIRACETAM 500 MG TABLET PO SCH ×2 (09:10→22:15)
[2017-04-26] MEDS: ASPIRIN 81 MG TABLET, CHEWABLE PO SCH (09:10)
[2017-04-26] MEDS: FLUTICASONE/SALMETEROL DISKUS 500-50 MCG/DOSE IH SCH ×2 (09:12→22:18)
[2017-04-26] MEDS: CEFEPIME 2 GM/D5W RTU 2 GM/50 ML RTUPB IV SCH (09:12)
[2017-04-26] MEDS: AZITHROMYCIN 250 MG TABLET PO SCH (15:52)
[2017-04-26] MEDS: MULTIVITAMIN TABLET PO SCH (15:54)
[2017-04-26] MEDS: MONTELUKAST SODIUM 10 MG TABLET PO SCH (22:15)
[2017-04-26] MEDS: ATORVASTATIN CALCIUM 40 MG TABLET PO SCH (22:17)
[2017-04-26] MEDS: TRAZODONE HCL 50 MG TABLET PO SCH (22:17)
[2017-04-27 05:57] LABS: BLOOD UREA NITROGEN 10 mg/dL (7-20); CALCIUM 8.9 mg/dL (8.4-10.2); CREATININE RESULT 0.48 mg/dL (0.52-1.25); GLUCOSE 95 mg/dL (75-110)
[2017-04-27 05:58] LABS: CHLORIDE 99 mmol/L (98-107)
[2017-04-27] MEDS: LANSOPRAZOLE 30 MG TAB.RAP.DR PO SCH ×2 (05:59→17:03)
[2017-04-27 06:11] LABS: ANION GAP 7 (5-19); CARBON DIOXIDE 31 mmol/L (22-30); POTASSIUM 4.3 mmol/L (3.6-5.0); SODIUM 137.1 mmol/L (137-145)
[2017-04-27] MEDS: ACETYLCYSTEINE 10% NEB 400 MG/4 ML VIAL NEB SCH ×2 (08:28→19:30)
[2017-04-27] MEDS: IPRATROPIUM/ALBUTEROL 0.5-2.5 MG/3 ML AMPUL NEB SCH ×4 (08:28→19:30)
[2017-04-27] MEDS: CEFEPIME 2 GM/D5W RTU 2 GM/50 ML RTUPB IV SCH (10:00)
[2017-04-27] MEDS: FLUTICASONE/SALMETEROL DISKUS 500-50 MCG/DOSE IH SCH ×2 (10:00→21:44)
[2017-04-27] MEDS: AZITHROMYCIN 250 MG TABLET PO SCH (10:59)
[2017-04-27] MEDS: LACTOBACILLUS ACIDOPHILUS 250 MG TAB PO SCH (11:00)
[2017-04-27] MEDS: LEVETIRACETAM 500 MG TABLET PO SCH ×2 (11:02→21:46)
[2017-04-27] MEDS: ASPIRIN 81 MG TABLET, CHEWABLE PO SCH (11:02)
[2017-04-27] MEDS: MULTIVITAMIN TABLET PO SCH (11:02)
[2017-04-27] MEDS: GUAIFENESIN 600 MG TABLET.SA PO SCH ×2 (11:03→21:46)
--- NOTE | 2017-04-27 11:38 | RADIOLOGY REPORT (SQ) ---
EXAM DESCRIPTION: NM LUNG PERFUSION SCAN COMPLETED DATE/TIME: 04/27/2017 11:19 am REASON FOR STUDY: sob/hypoxia COMPARISON: Chest x-ray dated 04/27/2017. RADIONUCLIDE AND DOSE: 5.08 millicuries TC-99m MAA The route of agent administration: Intravenous TECHNIQUE: Eight views of the lungs acquired following injection of MAA. LIMITATIONS: None. FINDINGS: PERFUSION: Heterogenous distribution with scattered subsegmental perfusion defects.. OTHER: No other significant finding. IMPRESSION: HETEROGENOUS DISTRIBUTION WITH SCATTERED SUBSEGMENTAL DEFECTS. THIS COULD BE DUE TO UND ERLYING LUNG DISEASE ALTHOUGH PULMONARY EMBOLISM NOT EXCLUDED. INTERMEDIATE PROBABILITY OF PULMONARY EMBOLISM. TECHNICAL DOCUMENTATION: JOB ID: [id number] [employer]- All Rights Reserved
--- NOTE | 2017-04-27 11:39 | RADIOLOGY REPORT (SQ) ---
EXAM DESCRIPTION: CHEST PA/LAT COMPLETED DATE/TIME: 04/27/2017 10:58 am REASON FOR STUDY: sob/hypoxia COMPARISON: 04/25/2017. NUMBER OF VIEWS: Two view. TECHNIQUE: Frontal and lateral radiographic views of the chest acquired. LIMITATIONS: None. FINDINGS: LUNGS AND PLEURA: Hyperinflation. Left basilar density with pleural effusion unchanged. Right lung relatively clear. MEDIASTINUM AND HILAR STRUCTURES: No masses. No contour abnormalities. HEART AND VASCULAR STRUCTURES: Heart normal in size and contour. No evidence for failure. BONES: No acute findings. HARDWARE: None in the chest. OTHER: No other significant finding. IMPRESSION: COPD. LEFT BASILAR INFILTRATE WITH PLEURAL EFFUSION, UNCHANGED. TECHNICAL DOCUMENTATION: JOB ID: [id number] [employer]- All Rights Reserved
--- NOTE | 2017-04-27 15:19 | PDOC PROGRESS REPORT ---
Subjective Progress Note for:: 04/27/17 Subjective:: Patient is currently doing fair Patient's denied any chest pain with any short of the breath while resting But according to the nursing staff patient is very short winded when she moves around Patient's desperately wants to go homeBut with the patient's very short winded consult of Dr. HernandezAnd rule out the PE Patient's VQ scan is indeterminate Patient's lower extremity ultrasound was negative for any acute DVT Patient's d-dimer is elevated Patient at this point severe discussed with Dr. Hernandez and suggest the may be started on LovenoxUntil next step According to the patient she cannot do the IV dye because the mix the breakout with the rash and the hives Physical Exam Vital Signs: Temp Pulse Resp BP Pulse Ox 98.1 F 91 17 138/66 H 97 04/27/17 12:11 04/27/17 12:11 04/27/17 12:11 04/27/17 12:11 04/27/17 12:11 Pulse Oximeter Continuous Start: 04/23/17 22: 33 Freq: RTQ4 Status: Active Document 04/27/17 11:41 TPO (Rec: 04/27/17 11:51 TPO [email or web address]) Pulse Oximetry Assessment Oxygen Saturation (92-100) 97 Oxygen Flow Rate (L/min) 3 Oxygen Delivery Method Nasal Cannula Fraction of Inspired Oxygen (FIO2) 32 Equipment Usage Equipment in Use Continuous SpO2 Machine # N-10 Intake & Output 04/26/17 04/27/17 04/28/17 06:59 06:59 06:59 Intake Total 1638 1090 480 Output Total 1910 1200 Balance -272 -110 480 Weight 73 kg General appearance: PRESENT: no acute distress, well-developed, well-nourished Head exam: PRESENT: atraumatic, normocephalic Eye exam: PRESENT: conjunctiva pink, EOMI, PERRLA. ABSENT: scleral icterus Ear exam: PRESENT: normal external ear exam Mouth exam: PRESENT: moist, tongue midline Neck exam: PRESENT: full ROM. ABSENT: carotid bruit, JVD, lymphadenopathy, thyromegaly Respiratory exam: PRESENT: decreased breath sounds Cardiovascular exam: PRESENT: RRR. ABSENT: diastolic murmur, rubs, systolic murmur Pulses: PRESENT: normal dorsalis pedis pul, +2 pedal pulses bilateral Vascular exam: PRESENT: normal capillary refill GI/Abdominal exam: PRESENT: normal bowel sounds, soft. ABSENT: distended, guarding, mass, organolmegaly, rebound, tenderness Rectal exam: PRESENT: deferred Neurological exam: PRESENT: alert, awake, oriented to person, oriented to place , oriented to time, oriented to situation, CN II-XII grossly intact. ABSENT: motor sensory deficit Psychiatric exam: PRESENT: appropriate affect, normal mood. ABSENT: homicidal ideation, suicidal ideation Skin exam: PRESENT: dry, intact, warm. ABSENT: cyanosis, rash Results Laboratory Results: 04/26/17 06:18 04/27/17 04:55 04/27/17 04:55 Sodium 137.1 Potassium 4.3 Chloride 99 Carbon Dioxide 31 H Anion Gap 7 BUN 10 Creatinine 0.48 L Est GFR ( Amer) > 60 Est GFR (Non-Af Amer) > 60 Glucose 95 Calcium 8.9 04/24/17 01:00 Sputum Gram Stain - Final 04/24/17 01:00 Sputum Sputum Culture - Final Klebsiella Pneumoniae Pseudomonas Aeruginosa Normal Bessy Impressions: Chest X-Ray 04/27/17 00:00 IMPRESSION: COPD. LEFT BASILAR INFILTRATE WITH PLEURAL EFFUSION, UNCHANGED. Lung Scan-VQ NM 04/27/17 00:00 IMPRESSION: HETEROGENOUS DISTRIBUTION WITH SCATTERED SUBSEGMENTAL DEFECTS. THIS COULD BE DUE TO UNDERLYING LUNG DISEASE ALTHOUGH PULMONARY EMBOLISM NOT EXCLUDED. INTERMEDIATE PROBABILITY OF PULMONARY EMBOLISM. Assessment & Plan - Diagnosis (1) COPD (chronic obstructive pulmonary disease) with acute bronchitis Is this a current diagnosis for this admission?: Yes Plan: Continues a nebulizer treatments (2) Hypoxia Is this a current diagnosis for this admission?: Yes Plan: At this point not sure about the PE with indeterminate VQ scan We will start the patient on the Lovenox Will be a considered to the CT angiogram tomorrow with pretreated with the steroid and bilateral if the patient and agree (3) Pneumonia Qualifiers: Pneumonia type: due to unspecified organism Laterality: left Lung location: lower lobe of lung Qualified Code(s): J18.1 - Lobar pneumonia, unspecified organism Is this a current diagnosis for this admission?: Yes Plan: Continues to IV antibiotic at the sputum culture (4) Urinary tract infection Qualifiers: Urinary tract infection type: site unspecified Is this a current diagnosis for this admission?: Yes Plan: Continue to IV antibiotic and follow the culture (5) Hyperlipidemia Qualifiers: Hyperlipidemia type: unspecified Qualified Code(s): E78.5 - Hyperlipidemia , unspecified Is this a current diagnosis for this admission?: Yes (6) Depression Qualifiers: Depression Type: major depressive disorder Is this a current diagnosis for this admission?: Yes Plan: Currently stable (7) Stroke Qualifiers: CVA mechanism: unspecified Qualified Code(s): I63.9 - Cerebral infarction, unspecified Is this a current diagnosis for this admission?: Yes Plan: Stable (8) Hypertension Qualifiers: Hypertension type: essential hypertension Is this a current diagnosis for this admission?: Yes Plan: Currently all stable - Time Time Spent with patient: 15-24 minutes Medications reviewed and adjusted accordingly: Yes Anticipated discharge: Home Within: Other - Inpatient Certification Medical Necessity: Need Close Monitoring Due to Risk of Patient Decompensation, Need for IV Antibiotics 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
--- NOTE | 2017-04-27 15:53 | XCELERA REPORT ---
[address] [address] Lower Extremity Venous Evaluation Name: ANNA AMEZCUA Age: 82 yrs Gender: Female : 1935 Patient Status: Inpatient Patient Location: [address] [place] [address] Study Date: 04/27/2017 01:33 PM Procedure: Color flow and duplex imaging bilaterally of the veins of the lower extremities as well as the Common Femoral veins. Reason For Study: leg pain/abnormal v/q scan/hypoxia Ordering Physician: CHRISTIAN SMITH Performed By: Beata Parker Right Sided Venous Evaluation Normal vessel filling wall to wall, compression and augmentation as well as Colour flow down to the infrageniculate veins. Left Sided Venous Evaluation Normal vessel filling wall to wall, compression and augmentation as well as Colour flow down to the infrageniculate veins. Interpretation Summary No duplex evidence of DVT or obstruction in the bilateral lower extremities. : CHRISTIAN SMITH > Hilario Bennett
--- NOTE | 2017-04-27 17:05 | PDOC CONSULTATION ---
Consultation Consult Date: 04/27/17 Attending physician:: CHRISTIAN SMITH Consult reason:: Respiratory failure History of Present Illness Admission Date/PCP: 04/23/17 22:30 CHRISTIAN SMITH MD History of Present Illness: 82-year-old female well-known to my service for past admissions last admitted on August 2016. She presented this time with increasing shortness of breath or cough that might have had some yellow phlegm in place not sure she denies hemoptysis fevers chills nausea vomiting diarrhea chest pain or edema she has a [id number] history but has not smoked in at least last 30 years she admits to exposure to passive smoke as a child as well as an adolescent. 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 Denies: Seizures GI Medical History: Denies: Hepatitis Musculoskeltal Medical History: Reports: Arthritis - Osteo Psychiatric Medical History: Reports: Depression Hematology: Reports: Anemia Denies: Sickle Cell Disease Past Surgical History Past Surgical History: Denies: Amputation, Hysterectomy, Mastectomy, Pacemaker Social History Information Source: Patient, [facility] Records Lives with: Family Smoking Status: Former Smoker Cigarettes Packs Per Day: 2 Number of Years Smokin Last Time Smoked: quit smoking in the early Passive smoke exposure as: Both Frequency of Alcohol Use: None Hx Recreational Drug Use: No Drugs: None Hx Prescription Drug Abuse: No Do you have pets?: No Have you had any respiratory illnesses as a child?: No Have you been exposed to any sick contacts recently?: No Have you had any recent respiratory illnesses?: No Have you travelled outside of [place] in the past 12 months?: No Family History Family History: Reviewed & Not Pertinent, Hypertension Parental Family History Reviewed: Yes Children Family History Reviewed: Yes Sibling(s) Family History Reviewed.: Yes Medication/Allergy Home Medications: Aspirin [Aspirin 81 mg Chewable Tablet] 81 mg PO DAILY 08/25/16 Diclofenac Sodium [Voltaren] 4 gm TOP BID PRN 08/25/16 Docusate Sodium [Colace 100 mg Capsule] 300 mg PO DAILYP PRN 08/25/16 Fluticasone/Salmeterol [Advair 500-50 Diskus 14 Dose/Diskus] 1 puff IH BID 08/25 Lactobacillus Acidophilus [Acidophilus] 1 each PO DAILY 08/25/16 Levetiracetam [Keppra 500 mg Tablet] 500 mg PO Q12 08/25/16 Montelukast Sodium [Singulair] 10 mg PO QHS 08/25/16 Nystatin [Mycostatin Topical Powder 15 gm] 1 applic TOP BIDP PRN 08/25/16 Omeprazole 30 mg PO BID 08/25/16 Sertraline HCl [Zoloft] 100 mg PO DAILY 08/25/16 Tiotropium Assonet [Spiriva Handihaler 5 Cap/Kit (18 Mcg/Cap)] 1 cap IH DAILY Trazodone HCl [Desyrel] 150 mg PO QHS 08/25/16 Acetylcysteine [Mucomist 10% Neb 400 mg/4 mL Vial] 600 mg NEB TID 04/23/17 Albuterol Sulfate [Proair HFA] 1 puff IH Q4HP PRN 04/23/17 Atorvastatin Calcium [Lipitor 40 mg Tablet] 40 mg PO QHS 04/23/17 Acetylcysteine [E-Tljlpz-v-Cysteine] 600 mg PO BIDBS 04/24/17 Multivitamin [Multiple Vitamins] 1 tab PO DAILY 04/24/17 Ciprofloxacin HCl [Cipro 500 mg Tablet] 500 mg PO BID #20 tablet 04/27/17 Allergies/Adverse Reactions: nitrofurantoin [Nitrofurantoin] Allergy (Severe, Verified 06/19/16 16:24) Hyperactivity povidone-iodine [From Betadine] Allergy (Severe, Verified 06/19/16 16:24) Blisters (topical iodine only) Soap [From Betadine] Allergy (Severe, Verified 06/19/16 16:24) Topical only-blisters gabapentin [From Neurontin] Allergy (Intermediate, Verified 06/19/16 16:24) Rash latex Allergy (Mild, Verified 06/19/16 16:24) metaxalone [From Skelaxin] Allergy (Mild, Verified 06/19/16 16:24) Review of Systems All systems: reviewed and no additional remarkable complaints except as stated Physical Exam Vital Signs: Temp Pulse Resp BP Pulse Ox 98.1 F 100 18 137/70 H 90 L 04/27/17 16:26 04/27/17 16:26 04/27/17 16:26 04/27/17 16:26 04/27/17 16:26 Pulse Oximeter Continuous Start: 04/23/17 22: 33 Freq: RTQ4 Status: Active Document 04/27/17 15:57 TPO (Rec: 04/27/17 16:06 TPO [email or web address]) Pulse Oximetry Assessment Oxygen Saturation (92-100) 95 Oxygen Flow Rate (L/min) 3 Oxygen Delivery Method Nasal Cannula Fraction of Inspired Oxygen (FIO2) 32 Equipment Usage Equipment in Use Continuous SpO2 Machine # N-[id number] Intake & Output 04/26/17 04/27/17 04/28/17 06:59 06:59 06:59 Intake Total 1638 1090 480 Output Total 1910 1200 Balance -272 -110 480 Weight 73 kg General appearance: PRESENT: disheveled, mild distress, well-developed Head exam: PRESENT: atraumatic, normocephalic Eye exam: PRESENT: conjunctiva pale, EOMI Mouth exam: PRESENT: dry mucosa, neck supple, tongue midline Neck exam: ABSENT: carotid bruit, JVD, lymphadenopathy, thyromegaly Respiratory exam: PRESENT: decreased breath sounds, prolonged expiratory phas, rales, rhonchi, symmetrical, tachypnea, wheezes. ABSENT: retraction, stridor, unlabored Cardiovascular exam: PRESENT: RRR, +S1, +S2. ABSENT: irregular rhythm Pulses: PRESENT: normal radial pulses GI/Abdominal exam: PRESENT: normal bowel sounds, soft. ABSENT: distended, guarding, mass, organolmegaly, rebound, tenderness Rectal exam: PRESENT: deferred Gentrourinary exam: PRESENT: indwelling catheter Musculoskeletal exam: PRESENT: normal inspection Neurological exam: PRESENT: awake Skin exam: PRESENT: dry, warm Results Laboratory Results: 04/26/17 06:18 04/27/17 04:55 04/27/17 04:55 Sodium 137.1 Potassium 4.3 Chloride 99 Carbon Dioxide 31 H Anion Gap 7 BUN 10 Creatinine 0.48 L Est GFR ( Amer) > 60 Est GFR (Non-Af Amer) > 60 Glucose 95 Calcium 8.9 04/24/17 01:00 Sputum Gram Stain - Final 04/24/17 01:00 Sputum Sputum Culture - Final Klebsiella Pneumoniae Pseudomonas Aeruginosa Normal Bessy Impressions: Chest X-Ray 04/27/17 00:00 IMPRESSION: COPD. LEFT BASILAR INFILTRATE WITH PLEURAL EFFUSION, UNCHANGED. Lung Scan-VQ NM 04/27/17 00:00 IMPRESSION: HETEROGENOUS DISTRIBUTION WITH SCATTERED SUBSEGMENTAL DEFECTS. THIS COULD BE DUE TO UNDERLYING LUNG DISEASE ALTHOUGH PULMONARY EMBOLISM NOT EXCLUDED. INTERMEDIATE PROBABILITY OF PULMONARY EMBOLISM. Assessment & Plan - Diagnosis (1) COPD (chronic obstructive pulmonary disease) with acute bronchitis Is this a current diagnosis for this admission?: Yes Plan: 04/24/17 01:00 Gram Stain - Final Sputum Sputum Culture - Final Klebsiella Pneumoniae Pseudomonas Aeruginosa Normal Bessy 04/23/17 22:05 Urine Culture - Final Clean Catch Midstream Klebsiella Pneumoniae (2) Hypoxia Is this a current diagnosis for this admission?: Yes Plan: Consider pulmonary emboli as patient is a history CTA would be ideal but may need to settle for VQ scan certainly venous Doppler studies bilaterally as well as a d-dimer may be indicated to help sort through this conundrum
[2017-04-27] MEDS: ATORVASTATIN CALCIUM 40 MG TABLET PO SCH (21:46)
[2017-04-27] MEDS: TRAZODONE HCL 50 MG TABLET PO SCH (21:46)
[2017-04-27] MEDS: MONTELUKAST SODIUM 10 MG TABLET PO SCH (21:46)
[2017-04-27] MEDS ORDERED: ENOXAPARIN SODIUM INJ 80 MG/0.8 ML DISP.SYRIN SUBCUT SCH (22:00)
[2017-04-27] MEDS: ENOXAPARIN SODIUM INJ 80 MG/0.8 ML DISP.SYRIN SUBCUT SCH (22:46)
[2017-04-28] MEDS ORDERED: FAMOTIDINE INJ/PF 20 MG/2 ML SDV IV PRN (05:00)
[2017-04-28] MEDS ORDERED: METHYLPREDNISOLONE INJ 125 MG/2 ML SDV IV PRN (05:00)
[2017-04-28] MEDS ORDERED: DIPHENHYDRAMINE HCL 50 MG/ML VIAL IV PRN (05:00)
[2017-04-28 05:23] LABS: ANION GAP 5 (5-19); BLOOD UREA NITROGEN 9 mg/dL (7-20); CALCIUM 9.1 mg/dL (8.4-10.2); CARBON DIOXIDE 35 mmol/L (22-30); CHLORIDE 97 mmol/L (98-107); CREATININE RESULT 0.46 mg/dL (0.52-1.25); GLUCOSE 97 mg/dL (75-110); POTASSIUM 3.8 mmol/L (3.6-5.0); SODIUM 137.4 mmol/L (137-145)
[2017-04-28] MEDS: LANSOPRAZOLE 30 MG TAB.RAP.DR PO SCH ×2 (06:40→16:21)
[2017-04-28] MEDS: IPRATROPIUM/ALBUTEROL 0.5-2.5 MG/3 ML AMPUL NEB SCH ×4 (08:22→19:49)
[2017-04-28] MEDS: ACETYLCYSTEINE 10% NEB 400 MG/4 ML VIAL NEB SCH ×2 (08:22→19:49)
[2017-04-28] MEDS: AZITHROMYCIN 250 MG TABLET PO SCH (09:37)
[2017-04-28] MEDS: LACTOBACILLUS ACIDOPHILUS 250 MG TAB PO SCH (09:37)
[2017-04-28] MEDS: LEVETIRACETAM 500 MG TABLET PO SCH ×2 (09:37→21:01)
[2017-04-28] MEDS: GUAIFENESIN 600 MG TABLET.SA PO SCH ×2 (09:38→21:03)
[2017-04-28] MEDS: MULTIVITAMIN TABLET PO SCH (09:38)
[2017-04-28] MEDS: ASPIRIN 81 MG TABLET, CHEWABLE PO SCH (09:38)
[2017-04-28] MEDS: FLUTICASONE/SALMETEROL DISKUS 500-50 MCG/DOSE IH SCH ×2 (09:43→21:01)
[2017-04-28] MEDS: CEFEPIME 2 GM/D5W RTU 2 GM/50 ML RTUPB IV SCH (09:44)
--- NOTE | 2017-04-28 11:02 | PDOC PROGRESS REPORT ---
Subjective Progress Note for:: 04/28/17 Subjective:: less sob Physical Exam Vital Signs: Temp Pulse Resp BP Pulse Ox 97.8 F 97 24 H 146/83 H 95 04/28/17 07:28 04/28/17 08:23 04/28/17 08:23 04/28/17 07:28 04/28/17 08:23 Pulse Oximeter Continuous Start: 04/23/17 22: 33 Freq: RTQ4 Status: Active Document 04/28/17 08:23 TPO (Rec: 04/28/17 08:46 TPO [email or web address]) Pulse Oximetry Assessment Oxygen Saturation (92-100) 95 Oxygen Flow Rate (L/min) 3 Oxygen Delivery Method Nasal Cannula Fraction of Inspired Oxygen (FIO2) 32 Equipment Usage Equipment in Use Continuous SpO2 Machine # N-10 Intake & Output 04/27/17 04/28/17 04/29/17 06:59 06:59 06:59 Intake Total 1090 1060 Output Total 1200 600 Balance -110 460 Weight 73 kg General appearance: PRESENT: cooperative, disheveled, mild distress, well- developed, well-nourished Head exam: PRESENT: atraumatic, normocephalic Eye exam: PRESENT: conjunctiva pale, EOMI Mouth exam: PRESENT: dry mucosa, neck supple, tongue midline Neck exam: ABSENT: carotid bruit, JVD, lymphadenopathy, thyromegaly Respiratory exam: PRESENT: decreased breath sounds, prolonged expiratory phas, rhonchi, symmetrical. ABSENT: retraction, stridor, tachypnea Cardiovascular exam: PRESENT: RRR, +S1 Pulses: PRESENT: normal radial pulses GI/Abdominal exam: PRESENT: normal bowel sounds, soft. ABSENT: distended, guarding, mass, organolmegaly, rebound, tenderness Rectal exam: PRESENT: deferred Gentrourinary exam: PRESENT: indwelling catheter Musculoskeletal exam: PRESENT: normal inspection Neurological exam: PRESENT: alert, awake Psychiatric exam: PRESENT: normal mood Skin exam: PRESENT: dry, warm Results Laboratory Results: 04/26/17 06:18 04/28/17 04:42 04/28/17 04:42 Sodium 137.4 Potassium 3.8 Chloride 97 L Carbon Dioxide 35 H Anion Gap 5 BUN 9 Creatinine 0.46 L Est GFR ( Amer) > 60 Est GFR (Non-Af Amer) > 60 Glucose 97 Calcium 9.1 09/23/17 01:00 Sputum Gram Stain - Final 04/24/17 01:00 Sputum Sputum Culture - Final Klebsiella Pneumoniae Pseudomonas Aeruginosa Normal Bessy Impressions: Chest X-Ray 04/27/17 00:00 IMPRESSION: COPD. LEFT BASILAR INFILTRATE WITH PLEURAL EFFUSION, UNCHANGED. Lung Scan-VQ NM 04/27/17 00:00 IMPRESSION: HETEROGENOUS DISTRIBUTION WITH SCATTERED SUBSEGMENTAL DEFECTS. THIS COULD BE DUE TO UNDERLYING LUNG DISEASE ALTHOUGH PULMONARY EMBOLISM NOT EXCLUDED. INTERMEDIATE PROBABILITY OF PULMONARY EMBOLISM. Assessment & Plan - Diagnosis (1) COPD (chronic obstructive pulmonary disease) with acute bronchitis Is this a current diagnosis for this admission?: Yes Plan: 04/24/17 01:00 Gram Stain - Final Sputum Sputum Culture - Final Klebsiella Pneumoniae Pseudomonas Aeruginosa Normal Bessy 04/23/17 22:05 Urine Culture - Final Clean Catch Midstream Klebsiella Pneumoniae (2) Hypoxia Is this a current diagnosis for this admission?: Yes Plan: Consider pulmonary emboli as patient is a history CTA would be ideal but may need to settle for VQ scan certainly venous Doppler studies bilaterally as well as a d-dimer may be indicated to help sort through this conundrum
--- NOTE | 2017-04-28 11:47 | PDOC PROGRESS REPORT ---
Subjective Progress Note for:: 04/28/17 Subjective:: Patient is feeling much better. Patient's ultrasound of the lower extremity was negative for any DVT Patient's denied any chest pain without any shortness of the breath Scheduled for the CT angiogram with premedicated to rule out definitive any pulmonary embolisms and if is negative we will stop the Lovenox Physical Exam Vital Signs: Temp Pulse Resp BP Pulse Ox 97.8 F 97 24 H 146/83 H 95 04/28/17 07:28 04/28/17 08:23 04/28/17 08:23 04/28/17 07:28 04/28/17 08:23 Pulse Oximeter Continuous Start: 04/23/17 22: 33 Freq: RTQ4 Status: Active Document 04/28/17 08:23 TPO (Rec: 04/28/17 08:46 TPO [email or web address]) Pulse Oximetry Assessment Oxygen Saturation (92-100) 95 Oxygen Flow Rate (L/min) 3 Oxygen Delivery Method Nasal Cannula Fraction of Inspired Oxygen (FIO2) 32 Equipment Usage Equipment in Use Continuous SpO2 Machine # N-10 Intake & Output 04/27/17 04/28/17 04/29/17 06:59 06:59 06:59 Intake Total 1090 1060 Output Total 1200 600 Balance -110 460 Weight 73 kg General appearance: PRESENT: no acute distress, well-developed, well-nourished Head exam: PRESENT: atraumatic, normocephalic Eye exam: PRESENT: conjunctiva pink, EOMI, PERRLA. ABSENT: scleral icterus Ear exam: PRESENT: normal external ear exam Mouth exam: PRESENT: moist, tongue midline Neck exam: PRESENT: full ROM. ABSENT: carotid bruit, JVD, lymphadenopathy, thyromegaly Respiratory exam: PRESENT: clear to auscultation esperanza Cardiovascular exam: PRESENT: RRR. ABSENT: diastolic murmur, rubs, systolic murmur Pulses: PRESENT: normal dorsalis pedis pul, +2 pedal pulses bilateral Vascular exam: PRESENT: normal capillary refill GI/Abdominal exam: PRESENT: normal bowel sounds, soft. ABSENT: distended, guarding, mass, organolmegaly, rebound, tenderness Rectal exam: PRESENT: deferred Neurological exam: PRESENT: alert, awake, oriented to person, oriented to place , oriented to time, oriented to situation, CN II-XII grossly intact. ABSENT: motor sensory deficit Psychiatric exam: PRESENT: appropriate affect, normal mood. ABSENT: homicidal ideation, suicidal ideation Skin exam: PRESENT: dry, intact, warm. ABSENT: cyanosis, rash Results Laboratory Results: 04/26/17 06:18 04/28/17 04:42 04/28/17 04:42 Sodium 137.4 Potassium 3.8 Chloride 97 L Carbon Dioxide 35 H Anion Gap 5 BUN 9 Creatinine 0.46 L Est GFR ( Amer) > 60 Est GFR (Non-Af Amer) > 60 Glucose 97 Calcium 9.1 Impressions: Chest X-Ray 04/27/17 00:00 IMPRESSION: COPD. LEFT BASILAR INFILTRATE WITH PLEURAL EFFUSION, UNCHANGED. Lung Scan-VQ NM 04/27/17 00:00 IMPRESSION: HETEROGENOUS DISTRIBUTION WITH SCATTERED SUBSEGMENTAL DEFECTS. THIS COULD BE DUE TO UNDERLYING LUNG DISEASE ALTHOUGH PULMONARY EMBOLISM NOT EXCLUDED. INTERMEDIATE PROBABILITY OF PULMONARY EMBOLISM. Assessment & Plan - Diagnosis (1) COPD (chronic obstructive pulmonary disease) with acute bronchitis Is this a current diagnosis for this admission?: Yes Plan: Continues a nebulizer treatments (2) Hypoxia Is this a current diagnosis for this admission?: Yes Plan: Because of the indeterminate VQ scan with elevated d-dimer with the clinical symptoms with the consult with the Dr. Hernandez's we will waiting for the CT angiograms (3) Pneumonia Qualifiers: Pneumonia type: due to unspecified organism Laterality: left Lung location: lower lobe of lung Qualified Code(s): J18.1 - Lobar pneumonia, unspecified organism Is this a current diagnosis for this admission?: Yes Plan: Continues to IV antibiotic at the sputum culture (4) Urinary tract infection Qualifiers: Urinary tract infection type: site unspecified Is this a current diagnosis for this admission?: Yes Plan: Continue to IV antibiotic and follow the culture (5) Hyperlipidemia Qualifiers: Hyperlipidemia type: unspecified Qualified Code(s): E78.5 - Hyperlipidemia , unspecified Is this a current diagnosis for this admission?: Yes (6) Depression Qualifiers: Depression Type: major depressive disorder Is this a current diagnosis for this admission?: Yes Plan: Currently stable (7) Stroke Qualifiers: CVA mechanism: unspecified Qualified Code(s): I63.9 - Cerebral infarction, unspecified Is this a current diagnosis for this admission?: Yes (8) Hypertension Qualifiers: Hypertension type: essential hypertension Is this a current diagnosis for this admission?: Yes Plan: Currently all stable - Time Time Spent with patient: 15-24 minutes Medications reviewed and adjusted accordingly: Yes Anticipated discharge: Home Within: Other - Inpatient Certification Medical Necessity: Need For IV Fluids, Need for IV Antibiotics Post Hospital Care: D/C Tacker Off Documentation - Plan Summary Plan Summary: Continues to current medications will wait for the CT angiograms discussed with the patient about the all the test results and the plan and patient understand very well and patient's agree with proceed from the CT angiograms CT angiogram is negative for PE. [employer]
[2017-04-28] MEDS: ENOXAPARIN SODIUM INJ 80 MG/0.8 ML DISP.SYRIN SUBCUT SCH ×2 (15:05→22:09)
[2017-04-28] MEDS: ACETYLCYSTEINE 20% SOLN 800 MG/4 ML VIAL.NEB PO SCH (16:05)
--- NOTE | 2017-04-28 18:14 | RADIOLOGY REPORT (SQ) ---
EXAM DESCRIPTION: CT CHEST WITHOUT COMPLETED DATE/TIME: 04/28/2017 5:59 pm REASON FOR STUDY: Rule out clots/PE, SOB COMPARISON: 08/30/2015 TECHNIQUE: CT scan performed of the chest without intravenous contrast. Images reviewed with lung, soft tissue and bone windows. Reconstructed coronal and sagittal MPR images reviewed. All images st ored on PACS. All CT scanners at this facility use dose modulation, iterative reconstruction, and/or weight based d osing when appropriate to reduce radiation dose to as low as reasonably achievable (ALARA). [facility]: Dose Right [facility]: CareDose [facility]: Dose Right [facility]: Teradose 4D [facility]: [employer] RADIATION DOSE: Up-to-date CT equipment and radiation dose reduction techniques were employed. CTDIv ol: 7.2 mGy. DLP: 279 mGy-cm. mGy. LIMITATIONS: No technical limitations. FINDINGS: LUNGS AND PLEURA: Small left pleural effusion. Scarring versus limited airspace disease i n the left lower lobe. HILAR AND MEDIASTINAL STRUCTURES: No identified masses or abnormal nodes. No obvious aneurysm. HEART AND VASCULAR STRUCTURES: No aneurysm. No pericardial effusion. UPPER ABDOMEN: No significant findings. Limited exam. THYROID AND OTHER SOFT TISSUES: No masses. No adenopathy. BONES: Cannot exclude transverse fracture of the superior sternum. This may represent respiratory mo tion artifact. No osseous lesions are seen. HARDWARE: None in the chest. OTHER: No other significant findings. IMPRESSION: 1. Small left pleural effusion with limited airspace disease in the left base suggestin g pneumonitis versus subsegmental atelectasis. 2. Cannot exclude a fracture of the superior aspect of the sternum, but this may represent motion ar tifact. TECHNICAL DOCUMENTATION: JOB ID: [id number] Quality ID # [id number]: Final reports with documentation of one or more dose reduction techniques (e.g., Au tomated exposure control, adjustment of the mA and/or kV according to patient size, use of iterative reconstruction technique) 2010 [employer]- All Rights Reserved
[2017-04-28] MEDS: ATORVASTATIN CALCIUM 40 MG TABLET PO SCH (21:00)
[2017-04-28] MEDS: MONTELUKAST SODIUM 10 MG TABLET PO SCH (21:03)
[2017-04-28] MEDS: TRAZODONE HCL 50 MG TABLET PO SCH (21:03)
[2017-04-29] MEDS: LANSOPRAZOLE 30 MG TAB.RAP.DR PO SCH ×2 (07:03→18:44)
[2017-04-29] MEDS: ACETYLCYSTEINE 10% NEB 400 MG/4 ML VIAL NEB SCH ×2 (07:35→19:45)
[2017-04-29] MEDS: IPRATROPIUM/ALBUTEROL 0.5-2.5 MG/3 ML AMPUL NEB SCH ×4 (07:35→19:46)
--- NOTE | 2017-04-29 10:07 | PDOC PROGRESS REPORT ---
Subjective Progress Note for:: 04/29/17 Subjective:: can I go home today? Physical Exam Vital Signs: Temp Pulse Resp BP Pulse Ox 98.1 F 89 17 138/63 H 99 04/29/17 07:58 04/29/17 07:58 04/29/17 07:58 04/29/17 07:58 04/29/17 07:58 Pulse Oximeter Continuous Start: 04/23/17 22: 33 Freq: RTQ4 Status: Active Document 04/29/17 04:04 EAL (Rec: 04/29/17 04:14 EAL [email or web address]) Pulse Oximetry Assessment Oxygen Saturation (92-100) 98 Oxygen Flow Rate (L/min) 3 Oxygen Delivery Method Nasal Cannula Fraction of Inspired Oxygen (FIO2) 32 Equipment Usage Equipment in Use Continuous SpO2 Machine # N-10 Intake & Output 04/28/17 04/29/17 04/30/17 06:59 06:59 06:59 Intake Total 1060 720 Output Total 600 300 Balance 460 420 Weight 73 kg 70.8 kg General appearance: PRESENT: no acute distress, disheveled, thin, well-developed Head exam: PRESENT: atraumatic, normocephalic Eye exam: PRESENT: conjunctiva pale, EOMI Mouth exam: PRESENT: dry mucosa, neck supple, tongue midline Neck exam: ABSENT: carotid bruit, JVD, lymphadenopathy, thyromegaly Respiratory exam: PRESENT: decreased breath sounds, prolonged expiratory phas, rhonchi, symmetrical, tachypnea - With minimal exertion, unlabored, wheezes. ABSENT: retraction, stridor Cardiovascular exam: PRESENT: RRR, +S1, +S2 Pulses: PRESENT: normal radial pulses GI/Abdominal exam: PRESENT: normal bowel sounds, soft. ABSENT: distended, guarding, mass, organolmegaly, rebound, tenderness Rectal exam: PRESENT: deferred Gentrourinary exam: PRESENT: indwelling catheter Musculoskeletal exam: PRESENT: normal inspection Neurological exam: PRESENT: awake Skin exam: PRESENT: dry, warm Results Laboratory Results: 04/26/17 06:18 04/28/17 04:42 04/23/17 22:39 Blood Blood Culture - Final NO GROWTH IN 5 DAYS Impressions: Chest X-Ray 04/27/17 00:00 IMPRESSION: COPD. LEFT BASILAR INFILTRATE WITH PLEURAL EFFUSION, UNCHANGED. Lung Scan-VQ [place] 04/27/17 00:00 IMPRESSION: HETEROGENOUS DISTRIBUTION WITH SCATTERED SUBSEGMENTAL DEFECTS. THIS COULD BE DUE TO UNDERLYING LUNG DISEASE ALTHOUGH PULMONARY EMBOLISM NOT EXCLUDED. INTERMEDIATE PROBABILITY OF PULMONARY EMBOLISM. Chest CT 04/28/17 09:00 IMPRESSION: 1. Small left pleural effusion with limited airspace disease in the left base suggesting pneumonitis versus subsegmental atelectasis. 2. Cannot exclude a fracture of the superior aspect of the sternum, but this may represent motion artifact. Assessment & Plan - Diagnosis (1) COPD (chronic obstructive pulmonary disease) with acute bronchitis Is this a current diagnosis for this admission?: Yes Plan: 04/24/17 01:00 Gram Stain - Final Sputum Sputum Culture - Final Klebsiella Pneumoniae Pseudomonas Aeruginosa Normal Bessy 04/23/17 22:05 Urine Culture - Final Clean Catch Midstream Klebsiella Pneumoniae (2) Hypoxia Is this a current diagnosis for this admission?: Yes Plan: Consider pulmonary emboli as patient is a history CTA would be ideal but may need to settle for VQ scan certainly venous Doppler studies bilaterally as well as a d-dimer may be indicated to help sort through this conundrum
[2017-04-29] MEDS ORDERED: TOBRAMYCIN SULFATE NEB 40 MG/ML 30 ML NEB ONE (11:00)
[2017-04-29] MEDS: AZITHROMYCIN 250 MG TABLET PO SCH (11:32)
[2017-04-29] MEDS: ASPIRIN 81 MG TABLET, CHEWABLE PO SCH (11:32)
[2017-04-29] MEDS: GUAIFENESIN 600 MG TABLET.SA PO SCH ×2 (11:33→21:03)
[2017-04-29] MEDS: LEVETIRACETAM 500 MG TABLET PO SCH ×2 (11:33→21:01)
[2017-04-29] MEDS: LACTOBACILLUS ACIDOPHILUS 250 MG TAB PO SCH (11:33)
[2017-04-29] MEDS: MULTIVITAMIN TABLET PO SCH (11:33)
[2017-04-29] MEDS: FLUTICASONE/SALMETEROL DISKUS 500-50 MCG/DOSE IH SCH ×2 (11:34→21:02)
[2017-04-29] MEDS: CEFEPIME 2 GM/D5W RTU 2 GM/50 ML RTUPB IV SCH (11:34)
[2017-04-29] MEDS: ACETYLCYSTEINE 20% SOLN 800 MG/4 ML VIAL.NEB PO SCH (11:34)
--- NOTE | 2017-04-29 12:59 | PDOC PROGRESS REPORT ---
Subjective Progress Note for:: 04/29/17 Subjective:: Patient is currently doing much better.Patient's denied any chest pain without any shortness of the breath According to the patient's patient's back to the baseline Patient unable to get the CT angiogram done as per discussed with the radiologist patient high risk because of the IV dye allergies Patient's bilateral lower extremities scan is negative for any DVT most likely patient does not have any sign of any PE at this point and patient high risk for anticoagulations anywayDiscussed with the Dr. Hernandez and suggest possible may be underlying COPD and a chronic bronchiectasis limits the patient's VQ scan indeterminant Since wants to go home Physical Exam Vital Signs: Temp Pulse Resp BP Pulse Ox 97.7 F 94 17 121/56 L 93 04/29/17 11:18 04/29/17 11:18 04/29/17 11:18 04/29/17 11:18 04/29/17 11:18 Pulse Oximeter Continuous Start: 04/23/17 22: 33 Freq: RTQ4 Status: Active Document 04/29/17 07:35 HCR (Rec: 04/29/17 10:11 HCR [email or web address]) Pulse Oximetry Assessment Oxygen Saturation (92-100) 95 Oxygen Flow Rate (L/min) 3 Oxygen Delivery Method Nasal Cannula Equipment Usage Equipment in Use Continuous SpO2 Machine # 10 Intake & Output 04/28/17 04/29/17 04/30/17 06:59 06:59 06:59 Intake Total 1060 720 Output Total 600 300 Balance 460 420 Weight 73 kg 70.8 kg General appearance: PRESENT: no acute distress, well-developed, well-nourished Head exam: PRESENT: atraumatic, normocephalic Eye exam: PRESENT: conjunctiva pink, EOMI, PERRLA. ABSENT: scleral icterus Ear exam: PRESENT: normal external ear exam Mouth exam: PRESENT: moist, tongue midline Neck exam: PRESENT: full ROM. ABSENT: carotid bruit, JVD, lymphadenopathy, thyromegaly Respiratory exam: PRESENT: clear to auscultation esperanza Cardiovascular exam: PRESENT: RRR. ABSENT: diastolic murmur, rubs, systolic murmur Pulses: PRESENT: normal dorsalis pedis pul, +2 pedal pulses bilateral Vascular exam: PRESENT: normal capillary refill GI/Abdominal exam: PRESENT: normal bowel sounds, soft. ABSENT: distended, guarding, mass, organolmegaly, rebound, tenderness Rectal exam: PRESENT: deferred Neurological exam: PRESENT: alert, awake, oriented to person, oriented to place , oriented to time, oriented to situation, CN II-XII grossly intact. ABSENT: motor sensory deficit Psychiatric exam: PRESENT: appropriate affect, normal mood. ABSENT: homicidal ideation, suicidal ideation Skin exam: PRESENT: dry, intact, warm. ABSENT: cyanosis, rash Results Laboratory Results: 04/26/17 06:18 04/28/17 04:42 04/23/17 22:39 Blood Blood Culture - Final NO GROWTH IN 5 DAYS Impressions: Chest X-Ray 04/27/17 00:00 IMPRESSION: COPD. LEFT BASILAR INFILTRATE WITH PLEURAL EFFUSION, UNCHANGED. Lung Scan-VQ NM 04/27/17 00:00 IMPRESSION: HETEROGENOUS DISTRIBUTION WITH SCATTERED SUBSEGMENTAL DEFECTS. THIS COULD BE DUE TO UNDERLYING LUNG DISEASE ALTHOUGH PULMONARY EMBOLISM NOT EXCLUDED. INTERMEDIATE PROBABILITY OF PULMONARY EMBOLISM. Chest CT 04/28/17 09:00 IMPRESSION: 1. Small left pleural effusion with limited airspace disease in the left base suggesting pneumonitis versus subsegmental atelectasis. 2. Cannot exclude a fracture of the superior aspect of the sternum, but this may represent motion artifact. Assessment & Plan - Diagnosis (1) COPD (chronic obstructive pulmonary disease) with acute bronchitis Is this a current diagnosis for this admission?: Yes Plan: Continues a nebulizer treatments (2) Hypoxia Is this a current diagnosis for this admission?: Yes Plan: Currently doing well with a low suspicious for any pulmonary embolism at this point will DC the Lovenox because the patient is a high risk (3) Pneumonia Qualifiers: Pneumonia type: due to unspecified organism Laterality: left Lung location: lower lobe of lung Qualified Code(s): J18.1 - Lobar pneumonia, unspecified organism Is this a current diagnosis for this admission?: Yes Plan: All resolving (4) Urinary tract infection Qualifiers: Urinary tract infection type: site unspecified Is this a current diagnosis for this admission?: Yes Plan: Continue to IV antibiotic and follow the culture (5) Hyperlipidemia Qualifiers: Hyperlipidemia type: unspecified Qualified Code(s): E78.5 - Hyperlipidemia , unspecified Is this a current diagnosis for this admission?: Yes (6) Depression Qualifiers: Depression Type: major depressive disorder Is this a current diagnosis for this admission?: Yes Plan: Currently stable (7) Stroke Qualifiers: CVA mechanism: unspecified Qualified Code(s): I63.9 - Cerebral infarction, unspecified Is this a current diagnosis for this admission?: Yes Plan: Stable (8) Hypertension Qualifiers: Hypertension type: essential hypertension Is this a current diagnosis for this admission?: Yes - Time Time Spent with patient: 15-24 minutes Medications reviewed and adjusted accordingly: Yes Anticipated discharge: Home Within: within 24 hours - Inpatient Certification Medical Necessity: Need for IV Antibiotics Post Hospital Care: D/C 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
[2017-04-29] MEDS: ENOXAPARIN SODIUM INJ 80 MG/0.8 ML DISP.SYRIN SUBCUT SCH ×2 (13:41→21:06)
[2017-04-29] MEDS: TOBRAMYCIN SULFATE NEB 40 MG/ML 30 ML NEB SCH (19:45)
[2017-04-29] MEDS: TRAZODONE HCL 50 MG TABLET PO SCH (21:02)
[2017-04-29] MEDS: ATORVASTATIN CALCIUM 40 MG TABLET PO SCH (21:02)
[2017-04-29] MEDS: MONTELUKAST SODIUM 10 MG TABLET PO SCH (21:03)
[2017-04-29] MEDS ORDERED: TOBRAMYCIN SULFATE INJ 80 MG/2 ML VIAL NEB SCH (22:00)
[2017-04-30] MEDS: LANSOPRAZOLE 30 MG TAB.RAP.DR PO SCH (06:24)
[2017-04-30] MEDS: TOBRAMYCIN SULFATE NEB 40 MG/ML 30 ML NEB SCH (07:53)
[2017-04-30] MEDS: ACETYLCYSTEINE 10% NEB 400 MG/4 ML VIAL NEB SCH (08:09)
[2017-04-30] MEDS: IPRATROPIUM/ALBUTEROL 0.5-2.5 MG/3 ML AMPUL NEB SCH (08:09)
[2017-04-30 09:12] VITALS: BP 137/71
--- NOTE | 2017-04-30 12:39 | PDOC DISCHARGE SUMMARY ---
General - Admit/Disc Date/PCP Admission Date/Primary Care Provider: 04/23/17 22:30 CHRISTIAN SMITH MD Discharge Date: 04/30/17 - Discharge Diagnosis (1) COPD (chronic obstructive pulmonary disease) with acute bronchitis Is this a current diagnosis for this admission?: Yes Summary: Currently all stable use the nebulizer at homeFollow with the pulmonary as outpatient (2) Hypoxia Is this a current diagnosis for this admission?: Yes Summary: Most likely due to underlying COPD But he less suspicious for the pulmonary embolism patient have a ultrasound of the lower extremity was done was negative CT of the chest was consistent with the pneumonia and the COPD and a VQ scan is indeterminate Patient's currently back to the baseline and patient was treated with the Lovenox full dose but patient is a high risk for the anticoagulations due to the 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 Hernandez and also suggested continues to nebulizer treatments and follow outpatient (3) Pneumonia Is this a current diagnosis for this admission?: Yes Summary: Patient's venous to IV antibiotic course and start the patient and the p.o. 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 (8) Hypertension Is this a current diagnosis for this admission?: Yes Summary: Currently well under control - Additional Information Discharge Diet: Cardiac Discharge Activity: Activity As Tolerated, Balance Activity w/Rest, Energy Conservation, Slowly Increase Activity Home Medications: Aspirin [Aspirin 81 mg Chewable Tablet] 81 mg PO DAILY 08/25/16 Diclofenac Sodium [Voltaren] 4 gm TOP BID PRN 08/25/16 Docusate Sodium [Colace 100 mg Capsule] 300 mg PO DAILYP PRN 08/25/16 Fluticasone/Salmeterol [Advair 500-50 Diskus 14 Dose/Diskus] 1 puff IH BID 08/25 Lactobacillus Acidophilus [Acidophilus] 1 each PO DAILY 08/25/16 Levetiracetam [Keppra 500 mg Tablet] 500 mg PO Q12 08/25/16 Montelukast Sodium [Singulair] 10 mg PO QHS 08/25/16 Nystatin [Mycostatin Topical Powder 15 gm] 1 applic TOP BIDP PRN 08/25/16 Omeprazole 30 mg PO BID 08/25/16 Sertraline HCl [Zoloft] 100 mg PO DAILY 08/25/16 Tiotropium [place] [Spiriva Handihaler 5 Cap/Kit (18 Mcg/Cap)] 1 cap IH DAILY Trazodone HCl [Desyrel] 150 mg PO QHS 08/25/16 Acetylcysteine [Mucomist 10% Neb 400 mg/4 mL Vial] 600 mg NEB TID 04/23/17 Albuterol Sulfate [Proair HFA] 1 puff IH Q4HP PRN 04/23/17 Atorvastatin Calcium [Lipitor 40 mg Tablet] 40 mg PO QHS 04/23/17 Acetylcysteine [N-Gkwbpx-v-Cysteine] 600 mg PO BIDBS 04/24/17 Multivitamin [Multiple Vitamins] 1 tab PO DAILY 04/24/17 Ciprofloxacin HCl [Cipro 500 mg Tablet] 500 mg PO BID #20 tablet 04/27/17 History of Present Illness History of Present Illness: ANNA AMEZCUA is a 82 year old female This is a 82-year-old female with significant history of the COPD, chronic bronchiectasis and a history of the hypertension's hyperlipidemia history of the stroke and multiple other comorbidity went to see a Dr. diehl's horticultural specialty grower office and the patient have a chest x-ray was done and episodes of left lower lobe pneumonia and patient was sent to the emergency department Patients at this point admitting the hospital for further IV antibiotic Patients usually require 2 L of oxygen at home and patient's oxygen saturation was 84 persons and increased oxygen was dropped to 3-4 L and currently running 96 Patient's currently denied any chest pain denied any shortness of the breath Denied any headache no nausea no vomiting Hospital Course Hospital Course: This is a 82-year-old females with a significant history of the COPD and bronchiectasis and 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 came to the emergency departmentWith a complaint of shortness of the breath and found the pneumonia Recent was admitting in the telemetry bed start the patient on IV antibiotic and nebulizer treatment patient responds very well Patient is a physical therapy order and patient's noticed more short of breath when she walked around in order the VQ scan Which is indeterminate due to the significant underlying COPD and order the ultrasound for the lower extremity which is negative for any DVT Patient unable to do the CT angiogram due to the significant side effect with the IV dyeAnd even patients not willing to go for that test him in the off for the premedicated Patient says she feels much better and she wants to go home and has been very extensive discussed with the pulmonary and suggest the patient as well as suspicious for the PE at this point Patient still very high risk for anticoagulations due to the frequent fall and the patient's history of the intracranial hemorrhage in the past Very extensive discussed with the patient and her daughter in the room and the with all the test reports Patient's discharge home with the stable conditions with the p.o. antibiotic and following a 1 week in office Physical Exam Vital Signs: Temp Pulse Resp BP Pulse Ox 97.3 F 95 28 H 137/71 H 97 04/30/17 08:48 04/30/17 08:48 04/30/17 08:48 04/30/17 08:48 04/30/17 08:48 Pulse Oximeter Continuous Start: 04/23/17 22: 33 Freq: RTQ4 Status: Discharge Document 04/30/17 08:29 J (Rec: 04/30/17 08:30 J [email or web address]) Pulse Oximetry Assessment Oxygen Saturation (92-100) 94 Oxygen Flow Rate (L/min) 2 Oxygen Delivery Method Nasal Cannula Equipment Usage Equipment in Use Continuous SpO2 Machine # 10 Intake & Output 04/29/17 04/30/17 05/01/17 06:59 06:59 06:59 Intake Total 720 1220 Output Total 300 1200 Balance 420 20 Weight 70.8 kg 72.7 kg General appearance: PRESENT: no acute distress, well-developed, well-nourished Head exam: PRESENT: atraumatic, normocephalic Eye exam: PRESENT: conjunctiva pink, EOMI, PERRLA. ABSENT: scleral icterus Ear exam: PRESENT: normal external ear exam Mouth exam: PRESENT: moist, tongue midline Neck exam: PRESENT: full ROM. ABSENT: carotid bruit, JVD, lymphadenopathy, thyromegaly Respiratory exam: PRESENT: clear to auscultation esperanza Cardiovascular exam: PRESENT: RRR. ABSENT: diastolic murmur, rubs, systolic murmur Pulses: PRESENT: normal dorsalis pedis pul, +2 pedal pulses bilateral Vascular exam: PRESENT: normal capillary refill GI/Abdominal exam: PRESENT: normal bowel sounds, soft. ABSENT: distended, guarding, mass, organolmegaly, rebound, tenderness Rectal exam: PRESENT: deferred Neurological exam: PRESENT: alert, awake, oriented to person, oriented to place , oriented to time, oriented to situation, CN II-XII grossly intact. ABSENT: motor sensory deficit Psychiatric exam: PRESENT: appropriate affect, normal mood. ABSENT: homicidal ideation, suicidal ideation Skin exam: PRESENT: dry, intact, warm. ABSENT: cyanosis, rash Results Laboratory Results: 04/26/17 06:18 04/28/17 04:42 Impressions: Chest X-Ray 04/27/17 00:00 IMPRESSION: COPD. LEFT BASILAR INFILTRATE WITH PLEURAL EFFUSION, UNCHANGED. Lung Scan-VQ NM 04/27/17 00:00 IMPRESSION: HETEROGENOUS DISTRIBUTION WITH SCATTERED SUBSEGMENTAL DEFECTS. THIS COULD BE DUE TO UNDERLYING LUNG DISEASE ALTHOUGH PULMONARY EMBOLISM NOT EXCLUDED. INTERMEDIATE PROBABILITY OF PULMONARY EMBOLISM. Chest CT 04/28/17 09:00 IMPRESSION: 1. Small left pleural effusion with limited airspace disease in the left base suggesting pneumonitis versus subsegmental atelectasis. 2. Cannot exclude a fracture of the superior aspect of the sternum, but this may represent motion artifact. Plan Time Spent: Greater than 30 Minutes - Patient is discharged home with the p.o. antibiotic Following a one-week in office Will recheck the CBC and Chem-7 repeat the chest x-ray Follow with the pulmonary Also arrange the home health and physical therapy
--- NOTE | 2017-05-05 09:17 | Physician Advisory Note ---
Physician Advisor ProgressNote .: Pursuant to the plan for [facility], I have reviewed the medical record for this patient. Physician Advisor Statement: Asked to review chart after d/c per repairer and checker question - Please consider documenting, if you agree: 1. "LLL Pneumonia, due to Klebsiella & Pseudomonas" [need organism specified with PNA] 2. "Acute on chronic Respiratory Failure, evidenced by labored breathing & sats in 80s on greater than her baseline __L O2 in triage" (due to PNA, on top of COPD & bronchiectasis) Discussion: Per ED nursing notes, pt "gasping", "huffing & puffing when she arrived through the front door via W/C while on home O2 at 3L ... Bumped up to 4L ... with resulting pulse ox 87%", breathing "labored", "pt speaking in broken sentences with exertion." She was tachypneic at 26, tachycardic at 102, with rhonchi, wheezing, & nonproductive cough, "tachypneic with even the slightest movement in the room", with "evidence of PNA on outpt CXR" per ED dr, WBC 10.7, Na 131. Thanks for your help in capturing pertinent co-morbidities with sufficient specificity! CK
== END 2017-04-30 10:00 | disposition home health service (06) | DRG 190 ==
LOC: ER 20:12 → EH 22:07 → UNDOADMIN 22:07 → EH 22:30 → 4S 04-24 01:26
PROVIDERS: ADMIT Family Medicine; ATTEND Family Medicine
PROC: 3E0F73Z Introduction of Anti-inflammatory into Respiratory Tract, Via Natural or Artificial Opening (ICD-10-PCS; principal; 2017-04-23)
DX: J44.0 Chronic obstructive pulmonary disease with (acute) lower respiratory infection (principal); J18.9 Pneumonia, unspecified organism; N39.0 Urinary tract infection, site not specified; J44.1 Chronic obstructive pulmonary disease with (acute) exacerbation; J20.9 Acute bronchitis, unspecified; E78.5 Hyperlipidemia, unspecified; M19.90 Unspecified osteoarthritis, unspecified site; R09.02 Hypoxemia; F32.9 Major depressive disorder, single episode, unspecified; I10 Essential (primary) hypertension; Z99.81 Dependence on supplemental oxygen; Z86.73 Personal history of transient ischemic attack (TIA), and cerebral infarction without residual deficits; Z87.891 Personal history of nicotine dependence; Z79.82 Long term (current) use of aspirin; Z79.899 Other long term (current) drug therapy; Z88.8 Allergy status to other drugs, medicaments and biological substances; Z91.040 Latex allergy status; Z91.81 History of falling; Z91.041 Radiographic dye allergy status
CPT/HCPCS: 36415; 71020; 71250; 78580; 80048; 81001; 85025; 85379; 87040; 87070; 87077; 87086; 87088; 87186; 87205; 93005; 93010; 93970; 94640; 94762; 96365; 99291; A9540; G8978-GP; G8979-GP; J0456; J0692; J0696; J3490; J7030; J7060; J7620; J7685; Q9969

== ENCOUNTER → 2017-04-23 | Outpatient (CLI) | payer MEDICARE, OTHER ==
--- NOTE | 2017-04-23 16:12 | RADIOLOGY REPORT (SQ) ---
EXAM DESCRIPTION: CHEST PA/LATERAL COMPLETED DATE/TIME: 04/23/2017 3:37 pm REASON FOR STUDY: COUGH,SHORTNESS OF BREATH COMPARISON: CT chest 08/30/2015 Chest films 06/24/2016, 08/26/2016, 08/27/2016, 08/28/2016, 08/30/2016 EXAM PARAMETERS: NUMBER OF VIEWS: two views TECHNIQUE: Digital Frontal and Lateral radiographic views of the chest acquired. RADIATION DOSE: NA LIMITATIONS: none FINDINGS: LUNGS AND PLEURA: There is patchy left basilar airspace disease worrisome for pneumonia. Remainder of the lungs are hyperinflated and hyperlucent from obstructive disease. No gross pneumoth orax or pleural effusion. MEDIASTINUM AND HILAR STRUCTURES: No masses or contour abnormalities. HEART AND VASCULAR STRUCTURES: Mild cardiomegaly BONES: Osteopenic HARDWARE: None in the chest. OTHER: No other significant finding. IMPRESSION: Left basilar airspace disease worrisome for pneumonia. Underlying obstructive lung disease. TECHNICAL DOCUMENTATION: JOB ID: [id number] [employer]- All Rights Reserved
== END ==
LOC: OD 15:15
PROVIDERS: ATTEND Internal Medicine Cardiovascular Disease
DX: R05 Cough (principal); R06.02 Shortness of breath
CPT/HCPCS: 71020

== ENCOUNTER → 2017-05-11 | Outpatient (CLI) | payer MEDICARE, OTHER ==
--- NOTE | 2017-05-11 11:25 | RADIOLOGY REPORT (SQ) ---
EXAM DESCRIPTION: CHEST PA/LATERAL COMPLETED DATE/TIME: 05/11/2017 9:54 am REASON FOR STUDY: BRONCHIECTASIS, UNCOMPLICATED COMPARISON: 04/27/2017, 04/25/2017 NUMBER OF VIEWS: Two view. TECHNIQUE: Frontal and lateral radiographic views of the chest acquired. LIMITATIONS: None. FINDINGS: LUNGS AND PLEURA: Significant but incomplete resolution a infiltrate left base. No new o r acute findings. MEDIASTINUM AND HILAR STRUCTURES: No masses or contour abnormalities. HEART AND VASCULATURE: Heart normal size. No evidence for failure. BONY STRUCTURES: No acute findings. HARDWARE: None. OTHER: No other significant finding. IMPRESSION: Improved aeration left base with residual infiltrate. TECHNICAL DOCUMENTATION: JOB ID: [id number]- All Rights Reserved
== END ==
LOC: OD 09:12
PROVIDERS: ATTEND Family Medicine
DX: J47.9 Bronchiectasis, uncomplicated (principal)
CPT/HCPCS: 71020

== ENCOUNTER → 2017-06-18 | Outpatient (CLI) | payer MEDICARE, OTHER ==
[2017-06-18 08:51] LABS: ALANINE AMINOTRANSFERASE 34 U/L (9-52); ALBUMIN 3.8 g/dL (3.5-5.0); ALKALINE PHOSPHATASE 57 U/L (38-126); ANION GAP 10 (5-19); ASPARTATE AMINO TRANSFERASE 37 U/L (14-36); BILIRUBIN,DIRECT 0.3 mg/dL (0.0-0.4); BILIRUBIN,TOTAL 0.5 mg/dL (0.2-1.3); BLOOD UREA NITROGEN 16 mg/dL (7-20); CARBON DIOXIDE 32 mmol/L (22-30); CHLORIDE 100 mmol/L (98-107); CHOLESTEROL 124.97 mg/dL (0-200); CREATININE RESULT 0.59 mg/dL (0.52-1.25); Direct HDL 70 mg/dL (>40); GLUCOSE 84 mg/dL (75-110); POTASSIUM 4.4 mmol/L (3.6-5.0); SODIUM 141.9 mmol/L (137-145); TOTAL PROTEIN 6.1 g/dL (6.3-8.2); TRIGLYCERIDES 52 mg/dL (<150)
[2017-06-18 09:02] LABS: DIRECT LDL 41 mg/dL (<100)
== END ==
LOC: OD 07:44
PROVIDERS: ATTEND Internal Medicine Cardiovascular Disease
DX: R06.02 Shortness of breath (principal); R00.2 Palpitations; E78.00 Pure hypercholesterolemia, unspecified; Z79.899 Other long term (current) drug therapy
CPT/HCPCS: 36415; 80048; 80061; 80076; 83735; 83880

== ENCOUNTER 2017-08-06 13:48 | Inpatient (IN) | payer MEDICARE, OTHER ==
[2017-08-06] MEDS ORDERED: ACETAMINOPHEN 325 MG TABLET PO PRN (14:02)
--- NOTE | 2017-08-06 14:14 | PDOC H&P ---
History of Present Illness Admission Date/PCP: 08/06/17 13:48 CHRISTIAN SMITH MD Patient complains of: Short of breath and productive sputum History of Present Illness: ANNA AMEZCUA is a 82 year old female This is a 82-year-old female with a significant history of the COPD and a history of the chronic bronchiectasis and a history of the 2 L oxygen at home and currently see a Dr. Blankeen came to the office with a complaint of shortness of the breath and patient oxygen saturation was 86% on 2 L nasal cannulaAnd patient also producing this yellowish green thick sputum since last several days and not feeling wellAnd at this point patient's was complaining some pain when she cough and with a significant other comorbidity decided to admit in the hospital for further evaluations for COPD and possible chronic bronchiectasis and the pneumonia Patient's denied any chest pain denied any nausea no vomiting No fever Patient also see her Dr. Spencer is a cardiology outpatient and currently all stable Past Medical History Cardiac Medical History: Reports: Hypertension Denies: Coronary Artery Disease, Myocardial Infarction Pulmonary Medical History: Reports: Asthma, Bronchitis, Chronic Obstructive Pulmonary Disease (COPD) Denies: Pneumonia Neurological Medical History: Reports: Hemorrhagic CVA Denies: Seizures GI Medical History: Reports: Gastroesophageal Reflux Disease Denies: Hepatitis Musculoskeltal Medical History: Reports: Arthritis - Osteo Psychiatric Medical History: Reports: Depression Hematology: Reports: Anemia Denies: Sickle Cell Disease Past Surgical History Past Surgical History: Denies: Amputation, Hysterectomy, Mastectomy, Pacemaker Social History Information Source: Patient, Relative Lives with: Family Smoking Status: Former Smoker Frequency of Alcohol Use: None Hx Recreational Drug Use: No Drugs: None Hx Prescription Drug Abuse: No Family History Family History: Reviewed & Not Pertinent, Hypertension Parental Family History Reviewed: Yes Children Family History Reviewed: Yes Sibling(s) Family History Reviewed.: Yes Medication/Allergy Home Medications: Aspirin [Aspirin 81 mg Chewable Tablet] 81 mg PO DAILY 08/25/16 Diclofenac Sodium [Voltaren] 4 gm TOP BID PRN 08/25/16 Docusate Sodium [Colace 100 mg Capsule] 300 mg PO DAILYP PRN 08/25/16 Fluticasone/Salmeterol [Advair 500-50 Diskus 14 Dose/Diskus] 1 puff IH BID 08/25 Lactobacillus Acidophilus [Acidophilus] 1 each PO DAILY 08/25/16 Levetiracetam [Keppra 500 mg Tablet] 500 mg PO Q12 08/25/16 Montelukast Sodium [Singulair] 10 mg PO QHS 08/25/16 Nystatin [Mycostatin Topical Powder 15 gm] 1 applic TOP BIDP PRN 08/25/16 Omeprazole 30 mg PO BID 08/25/16 Sertraline HCl [Zoloft] 100 mg PO DAILY 08/25/16 Tiotropium [place] [Spiriva Handihaler 5 Cap/Kit (18 Mcg/Cap)] 1 cap IH DAILY Trazodone HCl [Desyrel] 150 mg PO QHS 08/25/16 Acetylcysteine [Mucomist 10% Neb 400 mg/4 mL Vial] 600 mg NEB TID 04/23/17 Albuterol Sulfate [Proair HFA] 1 puff IH Q4HP PRN 04/23/17 Atorvastatin Calcium [Lipitor 40 mg Tablet] 40 mg PO QHS 04/23/17 Acetylcysteine [I-Knifsi-h-Cysteine] 600 mg PO BIDBS 04/24/17 Multivitamin [Multiple Vitamins] 1 tab PO DAILY 04/24/17 Ciprofloxacin HCl [Cipro 500 mg Tablet] 500 mg PO BID #20 tablet 04/27/17 Allergies/Adverse Reactions: nitrofurantoin [Nitrofurantoin] Allergy (Severe, Verified 06/19/16 16:24) Hyperactivity povidone-iodine [From Betadine] Allergy (Severe, Verified 06/19/16 16:24) Blisters (topical iodine only) Soap [From Betadine] Allergy (Severe, Verified 06/19/16 16:24) Topical only-blisters gabapentin [From Neurontin] Allergy (Intermediate, Verified 06/19/16 16:24) Rash latex Allergy (Mild, Verified 06/19/16 16:24) metaxalone [From Skelaxin] Allergy (Mild, Verified 06/19/16 16:24) Review of Systems Constitutional: PRESENT: fatigue, weakness. ABSENT: chills, fever(s), headache( s), weight gain, weight loss Eyes: ABSENT: visual disturbances Ears: ABSENT: hearing changes Cardiovascular: PRESENT: dyspnea on exertion. ABSENT: chest pain, edema, orthropnea, palpitations Respiratory: PRESENT: cough, dyspnea, sputum. ABSENT: hemoptysis Gastrointestinal: ABSENT: abdominal pain, constipation, diarrhea, hematemesis, hematochezia, nausea, vomiting Genitourinary: ABSENT: dysuria, hematuria Musculoskeletal: ABSENT: joint swelling Integumentary: ABSENT: rash, wounds Neurological: ABSENT: abnormal gait, abnormal speech, confusion, dizziness, focal weakness, syncope Psychiatric: ABSENT: anxiety, depression, homidical ideation, suicidal ideation Endocrine: ABSENT: cold intolerance, heat intolerance, menstrual abnormalities, polydipsia, polyuria Hematologic/Lymphatic: ABSENT: easy bleeding, easy bruising, lymphadenopathy Physical Exam General appearance: PRESENT: no acute distress, well-developed, well-nourished Head exam: PRESENT: atraumatic, normocephalic Eye exam: PRESENT: conjunctiva pink, EOMI, PERRLA. ABSENT: scleral icterus Ear exam: PRESENT: normal external ear exam Mouth exam: PRESENT: moist, tongue midline Neck exam: PRESENT: full ROM. ABSENT: carotid bruit, JVD, lymphadenopathy, thyromegaly Respiratory exam: PRESENT: decreased breath sounds Cardiovascular exam: PRESENT: RRR. ABSENT: diastolic murmur, rubs, systolic murmur Pulses: PRESENT: normal dorsalis pedis pul, +2 pedal pulses bilateral Vascular exam: PRESENT: normal capillary refill GI/Abdominal exam: PRESENT: normal bowel sounds, soft. ABSENT: distended, guarding, mass, organolmegaly, rebound, tenderness Rectal exam: PRESENT: deferred Extremities exam: ABSENT: pedal edema Musculoskeletal exam: PRESENT: ambulatory Neurological exam: PRESENT: alert, awake, oriented to person, oriented to place , oriented to time, oriented to situation, CN II-XII grossly intact. ABSENT: motor sensory deficit Psychiatric exam: PRESENT: appropriate affect, normal mood. ABSENT: homicidal ideation, suicidal ideation Skin exam: PRESENT: dry, intact, warm. ABSENT: cyanosis, rash Assessment & Plan - Diagnosis (1) COPD (chronic obstructive pulmonary disease) with acute bronchitis Is this a current diagnosis for this admission?: Yes Plan: Start the patient on nebulizer treatments increased oxygens (2) Pneumonia Qualifiers: Pneumonia type: due to unspecified organism Laterality: unspecified laterality Is this a current diagnosis for this admission?: Yes Plan: Patient is a history of the chronic bronchiectasis will get the sputum culture and start the patient on the broad-spectrum IV antibiotic (3) Hypertension Qualifiers: Hypertension type: essential hypertension Is this a current diagnosis for this admission?: Yes Plan: Currently stable continues to current medications (4) Hypoxia Is this a current diagnosis for this admission?: Yes Plan: Adjust oxygens (5) Stroke Qualifiers: CVA mechanism: unspecified Is this a current diagnosis for this admission?: Yes Plan: Currently all stable (6) Depression Qualifiers: Depression Type: major depressive disorder Major depression recurrence: recurrent Major depression episode severity: mild Is this a current diagnosis for this admission?: Yes Plan: Continues to current medications (7) Hyperlipidemia Qualifiers: Hyperlipidemia type: other hyperlipidemia Qualified Code(s): E78.4 - Other hyperlipidemia Is this a current diagnosis for this admission?: Yes (8) Chronic bronchiectasis not affecting current episode of care Is this a current diagnosis for this admission?: Yes Plan: We will get this with sputum culture started with IV antibiotic nebulizer treatments - Time Time Spent: 30 to 50 Minutes Medications reviewed and adjusted accordingly: Yes Anticipated discharge: Home Within: Other - Inpatient Certification Medical Necessity: Need For IV Fluids, Need for IV Antibiotics Post Hospital Care: 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
[2017-08-06 14:53] LABS: HEMATOCRIT 33.8 % (36.0-47.0); HEMOGLOBIN 11.4 g/dL (12.0-15.5); MEAN CORPUSCULAR HEMOGLOBIN 32.2 pg (27.0-33.4); MEAN CORPUSCULAR HGB CONC 33.6 g/dL (32.0-36.0); MEAN CORPUSCULAR VOLUME 96 fl (80-97); PLATELET COUNT 179 10^3/uL (150-450); RED BLOOD COUNT 3.54 10^6/uL (3.72-5.28); RED CELL DISTRIBUTION WIDTH 13.8 % (11.5-14.0); WHITE BLOOD COUNT 8.3 10^3/uL (4.0-10.5)
[2017-08-06] MEDS ORDERED: ENOXAPARIN SODIUM INJ 40 MG/0.4 ML DISP.SYRIN SUBCUT ONE (15:00)
[2017-08-06 15:13] LABS: ANION GAP 8 (5-19); BLOOD UREA NITROGEN 14 mg/dL (7-20); CALCIUM 9.7 mg/dL (8.4-10.2); CARBON DIOXIDE 34 mmol/L (22-30); CHLORIDE 92 mmol/L (98-107); GLUCOSE 114 mg/dL (75-110); POTASSIUM 3.8 mmol/L (3.6-5.0); SODIUM 134.1 mmol/L (137-145)
[2017-08-06 15:23] LABS: ABSOLUTE LYMPHOCYTES# (MANUAL) 0.5 10^3/uL (0.5-4.7); ABSOLUTE MONOCYTES # (MANUAL) 0.7 10^3/uL (0.1-1.4); ABSOLUTE NEUTROPHILS# (MANUAL) 7.1 10^3/uL (1.7-8.2); BASOPHILS % (MANUAL) 0 % (0-2); EOSINOPHILS % (MANUAL) 0 % (0-6); LYMPHOCYTES % (MANUAL) 6 % (13-45); MONOCYTES % (MANUAL) 9 % (3-13); SEGMENTED NEUTROPHILS % (MAN) 85 % (42-78); TOTAL CELLS COUNTED 100
[2017-08-06 15:24] LABS: OVALOCYTES SLIGHT; POIKILOCYTOSIS SLIGHT; POLYCHROMASIA SLIGHT; TOXIC GRANULATION SLIGHT; TOXIC VACUOLATION PRESENT
[2017-08-06 15:25] LABS: PLATELET COMMENT ADEQUATE
[2017-08-06] MEDS: AZITHROMYCIN 500 MG in DEXTROSE 5%-WATER 250 ML IV SCH (16:33)
--- NOTE | 2017-08-06 16:35 | RADIOLOGY REPORT (SQ) ---
EXAM DESCRIPTION: CT CHEST WITHOUT COMPLETED DATE/TIME: 08/06/2017 4:11 pm REASON FOR STUDY: pnemonia COMPARISON: 05/11/2017 chest radiograph, 04/28/2017 CT TECHNIQUE: CT scan performed of the chest without intravenous contrast. Images reviewed with lung, soft tissue and bone windows. Reconstructed coronal and sagittal MPR images reviewed. All images st ored on PACS. All CT scanners at this facility use dose modulation, iterative reconstruction, and/or weight based d osing when appropriate to reduce radiation dose to as low as reasonably achievable (ALARA). [facility]: Dose Right [facility]: CareDose [facility]: Dose Right [facility]: Teradose 4D [facility]: Smart Technologies RADIATION DOSE: CT Rad equipment meets quality standard of care and radiation dose reduction techniq ues were employed. CTDIvol: 6.8 mGy. DLP: 259 mGy-cm. mGy. LIMITATIONS: No technical limitations. FINDINGS: LUNGS AND PLEURA: Pleural-based opacity right upper chest stable. New patchy parenchymal opacities in the lingula segment of the left upper lobe. Increasing left basilar pleural and parench ymal opacities with small left effusion. HILAR AND MEDIASTINAL STRUCTURES: Stable small mediastinal nodes. HEART AND VASCULAR STRUCTURES: No aneurysm. No pericardial effusion. UPPER ABDOMEN: No significant findings. Limited exam. THYROID AND OTHER SOFT TISSUES: No masses. No adenopathy. BONES: No significant finding. HARDWARE: None in the chest. OTHER: No other significant findings. IMPRESSION: Slight increased parenchymal and pleural opacities particular left since the previous st udy. Slightly smaller left pleural effusion. Stable presumed reactive nodes in mediastinum. TECHNICAL DOCUMENTATION: JOB ID: [id number] Quality ID # [id number]: Final reports with documentation of one or more dose reduction techniques (e.g., Au tomated exposure control, adjustment of the mA and/or kV according to patient size, use of iterative reconstruction technique) 2010 [employer]- All Rights Reserved
[2017-08-06] MEDS: DOCUSATE SODIUM 100 MG CAPSULE PO SCH (18:34)
[2017-08-06] MEDS: CEFEPIME 1 GM/D5W RTU 1 GM/50 ML RTUPB IV SCH (18:35)
[2017-08-06] MEDS: MONTELUKAST SODIUM 10 MG TABLET PO SCH (18:35)
[2017-08-06] MEDS: IPRATROPIUM/ALBUTEROL 0.5-2.5 MG/3 ML AMPUL NEB PRN (20:58)
[2017-08-06] MEDS: ACETYLCYSTEINE 10% NEB 400 MG/4 ML VIAL NEB SCH (20:58)
[2017-08-06] MEDS ORDERED: (PENDING PHARMACY ID) (Trazodone Hcl [Desyrel] 150 MG) PO SCH (22:00)
[2017-08-06] MEDS: ATORVASTATIN CALCIUM 40 MG TABLET PO SCH (22:22)
[2017-08-06] MEDS: LEVETIRACETAM 500 MG TABLET PO SCH (22:22)
[2017-08-06] MEDS: TRAZODONE HCL 50 MG TABLET PO SCH (22:22)
[2017-08-06] MEDS: FLUTICASONE/SALMETEROL DISKUS 500-50 MCG/DOSE IH SCH (22:22)
[2017-08-06] MEDS: GUAIFENESIN 600 MG TABLET.SA PO SCH (22:23)
[2017-08-07] MEDS: CEFEPIME 1 GM/D5W RTU 1 GM/50 ML RTUPB IV SCH ×2 (05:50→17:45)
[2017-08-07] MEDS: LANSOPRAZOLE 30 MG TAB.RAP.DR PO SCH (05:54)
[2017-08-07] MEDS: IPRATROPIUM/ALBUTEROL 0.5-2.5 MG/3 ML AMPUL NEB PRN ×2 (07:53→21:15)
[2017-08-07] MEDS: ACETYLCYSTEINE 10% NEB 400 MG/4 ML VIAL NEB SCH ×2 (07:53→21:15)
[2017-08-07] MEDS ORDERED: ATORVASTATIN CALCIUM 80 MG TABLET PO SCH (10:00)
[2017-08-07] MEDS ORDERED: ENOXAPARIN SODIUM INJ 40 MG/0.4 ML DISP.SYRIN SUBCUT SCH (10:00)
[2017-08-07] MEDS: DOCUSATE SODIUM 100 MG CAPSULE PO SCH ×2 (10:29→17:45)
[2017-08-07] MEDS: ENOXAPARIN SODIUM INJ 40 MG/0.4 ML DISP.SYRIN SUBCUT SCH (10:29)
[2017-08-07] MEDS: FLUTICASONE/SALMETEROL DISKUS 500-50 MCG/DOSE IH SCH ×2 (10:29→22:17)
[2017-08-07] MEDS: GUAIFENESIN 600 MG TABLET.SA PO SCH ×2 (10:30→22:17)
[2017-08-07] MEDS: LEVETIRACETAM 500 MG TABLET PO SCH ×2 (10:30→22:17)
[2017-08-07] MEDS: SERTRALINE HCL 50 MG TABLET PO SCH (10:30)
[2017-08-07] MEDS: TIOTROPIUM BROMIDE DPI 5 CAP/KIT (18 MCG/CAP) IH SCH (10:43)
--- NOTE | 2017-08-07 11:41 | EKG REPORT ---
SEVERITY:- ABNORMAL ECG - SINUS RHYTHM MULTIPLE PREMATURE COMPLEXES, SUPRAVEN : Confirmed by: Ruiz Gupta 07-Aug-2017 11:40:18
--- NOTE | 2017-08-07 11:51 | PDOC PROGRESS REPORT ---
Subjective Progress Note for:: 08/07/17 Subjective:: Patient is currently doing fair patient's denied any chest pain denied any shortness of the breath Still have a productive cough Reason For Visit: COPD ACUTE Physical Exam Vital Signs: Temp Pulse Resp BP Pulse Ox 98.4 F 91 16 144/68 H 95 08/07/17 07:20 08/07/17 07:53 08/07/17 07:53 08/07/17 07:20 08/07/17 07:53 Intake & Output 08/06/17 08/07/17 08/08/17 06:59 06:59 06:59 Intake Total 1402 Output Total 1600 Balance -198 Weight 74.1 kg General appearance: PRESENT: no acute distress, well-developed, well-nourished Head exam: PRESENT: atraumatic, normocephalic Eye exam: PRESENT: conjunctiva pink, EOMI, PERRLA. ABSENT: scleral icterus Ear exam: PRESENT: normal external ear exam Mouth exam: PRESENT: moist, tongue midline Neck exam: PRESENT: full ROM. ABSENT: carotid bruit, JVD, lymphadenopathy, thyromegaly Respiratory exam: PRESENT: decreased breath sounds, wheezes Cardiovascular exam: PRESENT: RRR. ABSENT: diastolic murmur, rubs, systolic murmur Pulses: PRESENT: normal dorsalis pedis pul, +2 pedal pulses bilateral Vascular exam: PRESENT: normal capillary refill GI/Abdominal exam: PRESENT: normal bowel sounds, soft. ABSENT: distended, guarding, mass, organolmegaly, rebound, tenderness Rectal exam: PRESENT: deferred Extremities exam: ABSENT: pedal edema Neurological exam: PRESENT: alert, awake, oriented to person, oriented to place , oriented to time, oriented to situation, CN II-XII grossly intact. ABSENT: motor sensory deficit Psychiatric exam: PRESENT: appropriate affect, normal mood. ABSENT: homicidal ideation, suicidal ideation Skin exam: PRESENT: dry, intact, warm. ABSENT: cyanosis, rash Results Laboratory Results: 08/06/17 14:37 08/06/17 14:37 08/06/17 08/06/17 14:37 14:37 WBC 8.3 RBC 3.54 L Hgb 11.4 L Hct 33.8 L MCV 96 MCH 32.2 MCHC 33.6 RDW 13.8 Plt Count 179 Seg Neutrophils % Not Reportable Lymphocytes % Not Reportable Monocytes % Not Reportable Eosinophils % Not Reportable Basophils % Not Reportable Absolute Neutrophils Not Reportable Absolute Lymphocytes Not Reportable Absolute Monocytes Not Reportable Absolute Eosinophils Not Reportable Absolute Basophils Not Reportable Sodium 134.1 L Potassium 3.8 Chloride 92 L Carbon Dioxide 34 H Anion Gap 8 BUN 14 Creatinine 0.45 L Est GFR ( Amer) > 60 Est GFR (Non-Af Amer) > 60 Glucose 114 H Calcium 9.7 Impressions: Chest CT 08/06/17 00:00 IMPRESSION: Slight increased parenchymal and pleural opacities particular left since the previous study. Slightly smaller left pleural effusion. Stable presumed reactive nodes in mediastinum. Assessment & Plan - Diagnosis (1) COPD (chronic obstructive pulmonary disease) with acute bronchitis Is this a current diagnosis for this admission?: Yes Plan: Start the patient on nebulizer treatments increased oxygens (2) Pneumonia Qualifiers: Pneumonia type: due to unspecified organism Laterality: unspecified laterality Is this a current diagnosis for this admission?: Yes Plan: Patient is a history of the chronic bronchiectasis will get the sputum culture and start the patient on the broad-spectrum IV antibiotic (3) Hypertension Qualifiers: Hypertension type: essential hypertension Is this a current diagnosis for this admission?: Yes Plan: Currently stable continues to current medications (4) Hypoxia Is this a current diagnosis for this admission?: Yes Plan: Adjust oxygens (5) Stroke Qualifiers: CVA mechanism: unspecified Is this a current diagnosis for this admission?: Yes Plan: Currently all stable (6) Depression Qualifiers: Depression Type: major depressive disorder Major depression recurrence: recurrent Major depression episode severity: mild Is this a current diagnosis for this admission?: Yes Plan: Continues to current medications (7) Hyperlipidemia Qualifiers: Hyperlipidemia type: other hyperlipidemia Qualified Code(s): E78.4 - Other hyperlipidemia Is this a current diagnosis for this admission?: Yes (8) Chronic bronchiectasis not affecting current episode of care Is this a current diagnosis for this admission?: Yes Plan: We will get this with sputum culture started with IV antibiotic nebulizer treatments - Time Time Spent with patient: 15-24 minutes Medications reviewed and adjusted accordingly: Yes Anticipated discharge: Other Within: Other - Inpatient Certification Medical Necessity: Need for IV Antibiotics Post Hospital Care: D/C Energy Conservation Engineer Documentation - Plan Summary Plan Summary: This with the patient in the hospital regarding the patient's current conditions
[2017-08-07] MEDS: AZITHROMYCIN 500 MG in DEXTROSE 5%-WATER 250 ML IV SCH (15:51)
[2017-08-07] MEDS: MONTELUKAST SODIUM 10 MG TABLET PO SCH (17:45)
[2017-08-07] MEDS: TRAZODONE HCL 50 MG TABLET PO SCH (22:17)
[2017-08-07] MEDS: ATORVASTATIN CALCIUM 40 MG TABLET PO SCH (22:17)
[2017-08-08] MEDS: CEFEPIME 1 GM/D5W RTU 1 GM/50 ML RTUPB IV SCH ×2 (05:08→18:01)
[2017-08-08] MEDS: LANSOPRAZOLE 30 MG TAB.RAP.DR PO SCH (05:22)
[2017-08-08] MEDS: IPRATROPIUM/ALBUTEROL 0.5-2.5 MG/3 ML AMPUL NEB PRN ×2 (08:02→20:55)
[2017-08-08] MEDS: ACETYLCYSTEINE 10% NEB 400 MG/4 ML VIAL NEB SCH ×2 (08:02→20:55)
[2017-08-08] MEDS: DOCUSATE SODIUM 100 MG CAPSULE PO SCH ×2 (10:46→18:01)
[2017-08-08] MEDS: GUAIFENESIN 600 MG TABLET.SA PO SCH ×2 (10:55→22:02)
[2017-08-08] MEDS: FLUTICASONE/SALMETEROL DISKUS 500-50 MCG/DOSE IH SCH ×2 (10:55→22:02)
[2017-08-08] MEDS: TIOTROPIUM BROMIDE DPI 5 CAP/KIT (18 MCG/CAP) IH SCH (10:55)
[2017-08-08] MEDS: ENOXAPARIN SODIUM INJ 40 MG/0.4 ML DISP.SYRIN SUBCUT SCH (10:55)
[2017-08-08] MEDS: LEVETIRACETAM 500 MG TABLET PO SCH ×2 (10:55→22:02)
[2017-08-08] MEDS: SERTRALINE HCL 50 MG TABLET PO SCH (10:55)
[2017-08-08] MEDS: AZITHROMYCIN 500 MG in DEXTROSE 5%-WATER 250 ML IV SCH (15:45)
[2017-08-08] MEDS: MONTELUKAST SODIUM 10 MG TABLET PO SCH (18:01)
--- NOTE | 2017-08-08 21:53 | PROGRESS NOTE E ---
Progress Note NAME: ANNA AMEZCUA : 1935 AGE: 82Y DATE: 08/08/2017 ROOM: 429 SUBJECTIVE: The patient is apparently doing fair. The patient claims she wants to go home. Otherwise, *------*. Patient's daughter is at the bedside. OBJECTIVE: VITAL SIGNS: Currently stable. GENERAL: The patient is alert, awake, oriented, in no acute distress. HEAD AND NECK: Normocephalic. PERRLA. LUNGS: No wheezing, no rales. Decreased breath sounds bilaterally. HEART: S1, S2 is present. ABDOMEN: Soft. Bowel sounds present. EXTREMITIES: No edema. NEUROLOGIC: No focal weaknesses. DIAGNOSTIC STUDIES: The patient's labs and everything is reviewed. No *------*. Discussed with the family. ASSESSMENT: 1. COPD WITH ACUTE EXACERBATION. 2. CHRONIC BRONCHITIS. 3. HYPERTENSION. 4. HYPERLIPIDEMIA. 5. ANXIETY/DEPRESSION. PLAN: At this point continue DuoNeb, respiratory treatments. Continue the IV antibiotic. Wait for the sputum and the blood cultures. Discussed with the patient and the family maybe stay another 24-48 hours until the culture is back, otherwise the patient is probably hopefully discharged in the next 48 hours with p.o. antibiotics. DICTATING PHYSICIAN: CHRISTIAN SMITH M.D. [id number] YAMILET#: [id number] ID: [id number] JOB#: [id number] ACCT: [id number] cc: >
[2017-08-08] MEDS: ATORVASTATIN CALCIUM 40 MG TABLET PO SCH (22:02)
[2017-08-08] MEDS: TRAZODONE HCL 50 MG TABLET PO SCH (22:02)
[2017-08-09] MEDS: CEFEPIME 1 GM/D5W RTU 1 GM/50 ML RTUPB IV SCH (05:34)
[2017-08-09] MEDS: LANSOPRAZOLE 30 MG TAB.RAP.DR PO SCH (05:35)
[2017-08-09] MEDS: ACETYLCYSTEINE 10% NEB 400 MG/4 ML VIAL NEB SCH ×2 (08:40→21:19)
[2017-08-09] MEDS: IPRATROPIUM/ALBUTEROL 0.5-2.5 MG/3 ML AMPUL NEB PRN ×2 (08:40→21:17)
[2017-08-09 09:20] LABS: ABSOLUTE EOSINOPHILS # (AUTO) 0.1 10^3/uL (0.0-0.6); ABSOLUTE LYMPHOCYTES (AUTO) 0.6 10^3/uL (0.5-4.7); ABSOLUTE MONOCYTES (AUTO) 0.7 10^3/uL (0.1-1.4); ABSOLUTE NEUT (AUTO) 4.4 10^3/uL (1.7-8.2); BASOPHILS % (AUTO) 0.4 % (0-2); HEMATOCRIT 32.1 % (36.0-47.0); HEMOGLOBIN 10.8 g/dL (12.0-15.5); LYMPHOCYTES % (AUTO) 10.4 % (13-45); MEAN CORPUSCULAR HEMOGLOBIN 32.4 pg (27.0-33.4); MEAN CORPUSCULAR HGB CONC 33.6 g/dL (32.0-36.0); MEAN CORPUSCULAR VOLUME 97 fl (80-97); MONOCYTES % (AUTO) 11.6 % (3-13); PLATELET COUNT 166 10^3/uL (150-450); RED BLOOD COUNT 3.33 10^6/uL (3.72-5.28); SEGMENTED NEUTROPHILS % (AUTO) 75.6 % (42-78); TOTAL CELLS COUNTED % (AUTO) 100 %; WHITE BLOOD COUNT 5.8 10^3/uL (4.0-10.5)
[2017-08-09 09:40] LABS: ANION GAP 6 (5-19); BLOOD UREA NITROGEN 9 mg/dL (7-20); CALCIUM 8.8 mg/dL (8.4-10.2); CARBON DIOXIDE 35 mmol/L (22-30); CHLORIDE 94 mmol/L (98-107); GLUCOSE 109 mg/dL (75-110); POTASSIUM 3.8 mmol/L (3.6-5.0); SODIUM 135.3 mmol/L (137-145)
[2017-08-09] MEDS: GUAIFENESIN 600 MG TABLET.SA PO SCH ×2 (10:23→22:04)
[2017-08-09] MEDS: ENOXAPARIN SODIUM INJ 40 MG/0.4 ML DISP.SYRIN SUBCUT SCH (10:23)
[2017-08-09] MEDS: TIOTROPIUM BROMIDE DPI 5 CAP/KIT (18 MCG/CAP) IH SCH (10:23)
[2017-08-09] MEDS: DOCUSATE SODIUM 100 MG CAPSULE PO SCH ×2 (10:23→18:12)
[2017-08-09] MEDS: SERTRALINE HCL 50 MG TABLET PO SCH (10:23)
[2017-08-09] MEDS: LEVETIRACETAM 500 MG TABLET PO SCH ×2 (10:23→22:04)
[2017-08-09] MEDS: FLUTICASONE/SALMETEROL DISKUS 500-50 MCG/DOSE IH SCH ×2 (10:24→22:04)
--- NOTE | 2017-08-09 10:53 | PDOC PROGRESS REPORT ---
Subjective Progress Note for:: 08/16/17 Subjective:: Patient is currently doing fair patient's denied any chest pain denied any shortness of the breath Still have a productive cough Reason For Visit: COPD ACUTE Physical Exam Vital Signs: Temp Pulse Resp BP Pulse Ox 97.8 F 88 16 133/57 H 97 08/09/17 08:14 08/09/17 08:40 08/09/17 08:40 08/09/17 08:14 08/09/17 08:40 Intake & Output 08/08/17 08/09/17 08/10/17 06:59 06:59 06:59 Intake Total 1419 485 Output Total 1500 1350 Balance -81 -865 Weight 72.3 kg 72.1 kg General appearance: PRESENT: no acute distress, well-developed, well-nourished Head exam: PRESENT: atraumatic, normocephalic Eye exam: PRESENT: conjunctiva pink, EOMI, PERRLA. ABSENT: scleral icterus Ear exam: PRESENT: normal external ear exam Mouth exam: PRESENT: moist, tongue midline Neck exam: PRESENT: full ROM. ABSENT: carotid bruit, JVD, lymphadenopathy, thyromegaly Respiratory exam: PRESENT: clear to auscultation esperanza Cardiovascular exam: PRESENT: RRR. ABSENT: diastolic murmur, rubs, systolic murmur Pulses: PRESENT: normal dorsalis pedis pul, +2 pedal pulses bilateral Vascular exam: PRESENT: normal capillary refill GI/Abdominal exam: PRESENT: normal bowel sounds, soft. ABSENT: distended, guarding, mass, organolmegaly, rebound, tenderness Rectal exam: PRESENT: deferred Extremities exam: ABSENT: pedal edema Musculoskeletal exam: PRESENT: ambulatory Neurological exam: PRESENT: alert, awake, oriented to person, oriented to place , oriented to time, oriented to situation, CN II-XII grossly intact. ABSENT: motor sensory deficit Psychiatric exam: PRESENT: appropriate affect, normal mood. ABSENT: homicidal ideation, suicidal ideation Skin exam: PRESENT: dry, intact, warm. ABSENT: cyanosis, rash Results Laboratory Results: 08/09/17 09:10 08/09/17 09:10 08/09/17 08/09/17 09:10 09:10 WBC 5.8 RBC 3.33 L Hgb 10.8 L Hct 32.1 L MCV 97 MCH 32.4 MCHC 33.6 RDW 14.0 Plt Count 166 Seg Neutrophils % 75.6 Lymphocytes % 10.4 L Monocytes % 11.6 Eosinophils % 2.0 Basophils % 0.4 Absolute Neutrophils 4.4 Absolute Lymphocytes 0.6 Absolute Monocytes 0.7 Absolute Eosinophils 0.1 Absolute Basophils 0.0 Sodium 135.3 L Potassium 3.8 Chloride 94 L Carbon Dioxide 35 H Anion Gap 6 BUN 9 Creatinine 0.45 L Est GFR ( Amer) > 60 Est GFR (Non-Af Amer) > 60 Glucose 109 Calcium 8.8 08/06/17 16:30 Clean Catch Midstream Urine Culture - Final Mixed Urogenital Bessy Impressions: Chest CT 08/06/17 00:00 IMPRESSION: Slight increased parenchymal and pleural opacities particular left since the previous study. Slightly smaller left pleural effusion. Stable presumed reactive nodes in mediastinum. Assessment & Plan - Diagnosis (1) COPD (chronic obstructive pulmonary disease) with acute bronchitis Is this a current diagnosis for this admission?: Yes Plan: Start the patient on nebulizer treatments increased oxygens (2) Pneumonia Qualifiers: Pneumonia type: due to unspecified organism Laterality: unspecified laterality Is this a current diagnosis for this admission?: Yes Plan: Patient is a history of the chronic bronchiectasis will get the sputum culture and start the patient on the broad-spectrum IV antibiotic (3) Hypertension Qualifiers: Hypertension type: essential hypertension Is this a current diagnosis for this admission?: Yes Plan: Currently stable continues to current medications (4) Hypoxia Is this a current diagnosis for this admission?: Yes Plan: Adjust oxygens (5) Stroke Qualifiers: CVA mechanism: unspecified Is this a current diagnosis for this admission?: Yes Plan: Currently all stable (6) Depression Qualifiers: Depression Type: major depressive disorder Major depression recurrence: recurrent Major depression episode severity: mild Is this a current diagnosis for this admission?: Yes Plan: Continues to current medications (7) Hyperlipidemia Qualifiers: Hyperlipidemia type: other hyperlipidemia Qualified Code(s): E78.4 - Other hyperlipidemia Is this a current diagnosis for this admission?: Yes (8) Chronic bronchiectasis not affecting current episode of care Is this a current diagnosis for this admission?: Yes Plan: We will get this with sputum culture started with IV antibiotic nebulizer treatments - Time Time Spent with patient: 15-24 minutes Medications reviewed and adjusted accordingly: Yes Anticipated discharge: Home, Other Within: within 24 hours - Inpatient Certification Medical Necessity: Need Close Monitoring Due to Risk of Patient Decompensation Post Hospital Care: D/C Lead Generation Specialist Documentation - Plan Summary Plan Summary: Continues to current medications
[2017-08-09] MEDS: MONTELUKAST SODIUM 10 MG TABLET PO SCH (18:12)
[2017-08-09] MEDS ORDERED: LEVOFLOXACIN 500 MG TABLET PO ONE (20:00)
[2017-08-09] MEDS: TRAZODONE HCL 50 MG TABLET PO SCH (22:03)
[2017-08-09] MEDS: ATORVASTATIN CALCIUM 40 MG TABLET PO SCH (22:04)
[2017-08-10] MEDS: LANSOPRAZOLE 30 MG TAB.RAP.DR PO SCH (05:57)
[2017-08-10] MEDS: IPRATROPIUM/ALBUTEROL 0.5-2.5 MG/3 ML AMPUL NEB PRN (08:41)
[2017-08-10] MEDS: ACETYLCYSTEINE 10% NEB 400 MG/4 ML VIAL NEB SCH (08:41)
[2017-08-10] MEDS ORDERED: AZITHROMYCIN 250 MG TABLET PO SCH (10:00)
[2017-08-10 11:18] VITALS: BP 132/50
[2017-08-10] MEDS ORDERED: LEVOFLOXACIN 250 MG TABLET PO SCH (18:00)
--- NOTE | 2017-08-11 10:14 | PDOC DISCHARGE SUMMARY ---
General - Admit/Disc Date/PCP Admission Date/Primary Care Provider: 08/06/17 13:48 CHRISTIAN SMITH MD Discharge Date: 08/10/17 - Discharge Diagnosis (1) COPD (chronic obstructive pulmonary disease) with acute bronchitis Is this a current diagnosis for this admission?: Yes Summary: Currently all resolved (2) Pneumonia Is this a current diagnosis for this admission?: Yes Summary: Continues to doxycycline for 7 days (3) Hypertension Is this a current diagnosis for this admission?: Yes Summary: Currently all stable (4) Hypoxia Is this a current diagnosis for this admission?: Yes Summary: Patient is currently on 2 L nasal cannula at home (5) Stroke Is this a current diagnosis for this admission?: Yes Summary: [place] all stable (6) Depression Is this a current diagnosis for this admission?: Yes Summary: Thony to current medications (7) Hyperlipidemia Is this a current diagnosis for this admission?: Yes Summary: Currently all stable (8) Chronic bronchiectasis not affecting current episode of care Is this a current diagnosis for this admission?: Yes Summary: And also see a Dr. Hernandez as outpatients - Additional Information Discharge Diet: Cardiac Discharge Activity: Balance Activity w/Rest Prescriptions: Doxycycline Monohydrate 100 mg PO BID #20 tablet Home Medications: Atorvastatin Calcium [Lipitor 80 mg Tablet] 40 mg PO DAILY 08/06/17 Fluticasone/Salmeterol [Advair 500-50 Diskus 14 Dose/Diskus] 1 puff IH Q12 08/06 Levetiracetam [Keppra 500 mg Tablet] 500 mg PO Q12 08/06/17 Montelukast Sodium [Singulair 10 mg Tablet] 10 mg PO QPM 08/06/17 Omeprazole 40 mg PO DAILY 08/06/17 Sertraline HCl [Zoloft] 100 mg PO DAILY 08/06/17 Tiotropium [place] [Spiriva Handihaler 5 Cap/Kit (18 Mcg/Cap)] 1 puff IH DAILY 08/06/17 Trazodone HCl [Desyrel] 150 mg PO QHS 08/06/17 Doxycycline Monohydrate 100 mg PO BID #20 tablet 08/10/17 History of Present Illness History of Present Illness: ANNA AMEZCUA is a 82 year old female This is a 82-year-old female with a significant history of the COPD and a history of the chronic bronchiectasis and a history of the 2 L oxygen at home and currently see a Dr. Hernandez came to the office with a complaint of shortness of the breath and patient oxygen saturation was 86% on 2 L nasal cannulaAnd patient also producing this yellowish green thick sputum since last several days and not feeling wellAnd at this point patient's was complaining some pain when she cough and with a significant other comorbidity decided to admit in the hospital for further evaluations for COPD and possible chronic bronchiectasis and the pneumonia Patient's denied any chest pain denied any nausea no vomiting No fever Patient also see her Dr. Spencer is a cardiology outpatient and currently all stable Hospital Course Hospital Course: This is an 82-year-old females as above medical problems admitting in the hospital with a COPD and a chronic bronchiectasis and a pneumonia Patient was treated with IV cefepime and switch to the p.o. antibiotic Patient's cultures so some strep and sensitive to the doxycycline and patient's discharge home with the p.o. antibiotic Patient's remained stable doing much better and expressed to go homes Discussed with the patient and the daughter and the patient's current condition and the Follow-up outpatient in 1 week Physical Exam Vital Signs: Temp Pulse Resp BP Pulse Ox 97.8 F 88 17 132/50 H 98 08/10/17 10:27 08/10/17 10:27 08/10/17 10:27 08/10/17 10:27 08/10/17 10:27 Intake & Output 08/10/17 08/11/17 08/12/17 06:59 06:59 06:59 Intake Total 1517 Output Total 1550 Balance -33 Weight 71.4 kg General appearance: PRESENT: no acute distress, well-developed, well-nourished Head exam: PRESENT: atraumatic, normocephalic Eye exam: PRESENT: conjunctiva pink, EOMI, PERRLA. ABSENT: scleral icterus Ear exam: PRESENT: normal external ear exam Mouth exam: PRESENT: moist, tongue midline Neck exam: PRESENT: full ROM. ABSENT: carotid bruit, JVD, lymphadenopathy, thyromegaly Respiratory exam: PRESENT: clear to auscultation esperanza Cardiovascular exam: PRESENT: RRR. ABSENT: diastolic murmur, rubs, systolic murmur Pulses: PRESENT: normal dorsalis pedis pul, +2 pedal pulses bilateral Vascular exam: PRESENT: normal capillary refill GI/Abdominal exam: PRESENT: normal bowel sounds, soft. ABSENT: distended, guarding, mass, organolmegaly, rebound, tenderness Rectal exam: PRESENT: deferred Extremities exam: ABSENT: full ROM, left AKA, right AKA, left BKA, right BKA, calf tenderness, joint swelling, pedal edema, tenderness, other Musculoskeletal exam: PRESENT: ambulatory Neurological exam: PRESENT: alert, awake, oriented to person, oriented to place , oriented to time, oriented to situation, CN II-XII grossly intact. ABSENT: motor sensory deficit Psychiatric exam: PRESENT: appropriate affect, normal mood. ABSENT: homicidal ideation, suicidal ideation Skin exam: PRESENT: dry, intact, warm. ABSENT: cyanosis, rash Results Laboratory Results: 08/09/17 09:10 08/09/17 09:10 08/06/17 15:30 Sputum Gram Stain - Final 08/06/17 15:30 Sputum Sputum Culture - Final Streptococcus Pneumoniae Klebsiella Pneumoniae Normal Bessy Absent Impressions: Chest CT 08/06/17 00:00 IMPRESSION: Slight increased parenchymal and pleural opacities particular left since the previous study. Slightly smaller left pleural effusion. Stable presumed reactive nodes in mediastinum. Plan Time Spent: Greater than 30 Minutes - Following a one-week in office
== END 2017-08-10 11:17 | disposition home health service (06) | DRG 194 ==
LOC: 4S 13:48
PROVIDERS: ADMIT Family Medicine; ATTEND Family Medicine
DX: J18.9 Pneumonia, unspecified organism (principal); J47.0 Bronchiectasis with acute lower respiratory infection; F33.0 Major depressive disorder, recurrent, mild; J20.2 Acute bronchitis due to streptococcus; R09.02 Hypoxemia; I10 Essential (primary) hypertension; K21.9 Gastro-esophageal reflux disease without esophagitis; E78.5 Hyperlipidemia, unspecified; M19.90 Unspecified osteoarthritis, unspecified site; Z99.81 Dependence on supplemental oxygen; Z87.891 Personal history of nicotine dependence; Z79.2 Long term (current) use of antibiotics; Z79.82 Long term (current) use of aspirin; Z79.51 Long term (current) use of inhaled steroids; Z79.899 Other long term (current) drug therapy; Z86.73 Personal history of transient ischemic attack (TIA), and cerebral infarction without residual deficits
CPT/HCPCS: 36415; 71250; 80048; 85025; 87040; 87070; 87077; 87086; 87186; 87205; 93005; 93010; 94640; J0456; J0692; J1650; J3490; J7060; J7620

== ENCOUNTER → 2017-09-03 | Outpatient (CLI) | payer MEDICARE, OTHER ==
--- NOTE | 2017-09-03 11:53 | RADIOLOGY REPORT (SQ) ---
EXAM DESCRIPTION: CHEST PA/LATERAL COMPLETED DATE/TIME: 09/03/2017 11:43 am REASON FOR STUDY: CHRONIC OBSTRUCTIVE PULMONARY DISEASE, UNSPECIFIED COMPARISON: CT chest 08/06/2017, 04/28/2017, 08/30/2015 Chest films 05/11/2017, 04/27/2017, 08/30/2016 EXAM PARAMETERS: NUMBER OF VIEWS: two views TECHNIQUE: Digital Frontal and Lateral radiographic views of the chest acquired. RADIATION DOSE: NA LIMITATIONS: none FINDINGS: LUNGS AND PLEURA: There is chronic appearing focal pleural thickening along the periphery of the right upper lobe, and in the left posterior costophrenic sulcus. No definite acute infiltrates. No new pleural effusions. No pneumothorax. MEDIASTINUM AND HILAR STRUCTURES: No masses or contour abnormalities. HEART AND VASCULAR STRUCTURES: Heart normal size. No evidence for failure. BONES: Osteoporotic without acute wedge compression deformity HARDWARE: None in the chest. OTHER: No other significant finding. IMPRESSION: Chronic pleuroparenchymal scarring along the periphery of the right upper lobe and left lung base. No acute changes TECHNICAL DOCUMENTATION: JOB ID: [id number]- All Rights Reserved
== END ==
LOC: OD 11:07
PROVIDERS: ATTEND Physician Assistant
DX: J44.9 Chronic obstructive pulmonary disease, unspecified (principal)
CPT/HCPCS: 71046

== ENCOUNTER → 2017-09-14 | Outpatient (CLI) | payer MEDICARE, OTHER ==
--- NOTE | 2017-09-14 13:36 | RADIOLOGY REPORT (SQ) ---
EXAM DESCRIPTION: HUMERUS RIGHT COMPLETED DATE/TIME: 09/14/2017 10:54 am REASON FOR STUDY: UNSPECIFIED FALL, INITIAL ENCOUNTER,PAIN IN RIGHT UPPER ARM W19.XXXA UNSPECIFIED FALL, INITIAL ENCOUNTER M53.3 SACROCOCCYGEAL DISORDERS, NOT ELSEWHERE CLASSIFIED M79.621 PAIN IN RI GHT UPPER ARM COMPARISON: None. NUMBER OF VIEWS: Two views. TECHNIQUE: Two radiographic images were acquired of the right humerus to include elbow and shoulder in at least one projection. LIMITATIONS: None. FINDINGS: MINERALIZATION: Normal. BONES: No acute fracture or dislocation. No worrisome bone lesions. SOFT TISSUES: No obvious swelling or foreign body. OTHER: No other significant finding. IMPRESSION: NEGATIVE STUDY OF THE RIGHT HUMERUS. NO RADIOGRAPHIC EVIDENCE OF ACUTE INJURY. TECHNICAL DOCUMENTATION: JOB ID: [id number] [employer] All Rights Reserved
--- NOTE | 2017-09-14 13:38 | RADIOLOGY REPORT (SQ) ---
EXAM DESCRIPTION: SACRUM AND COCCYX COMPLETED DATE/TIME: 09/14/2017 10:54 am REASON FOR STUDY: UNSPECIFIED FALL, INITIAL ENCOUNTER,SACROCOCCYGELA DISORDERS W19.XXXA UNSPECIFIED FALL, INITIAL ENCOUNTER M53.3 SACROCOCCYGEAL DISORDERS, NOT ELSEWHERE CLASSIFIED M79.621 PAIN IN R IGHT UPPER ARM COMPARISON: None. NUMBER OF VIEWS: Three views. TECHNIQUE: AP, lateral, and tilt views of the sacrum and coccyx. LIMITATIONS: None. FINDINGS: MINERALIZATION: Normal. BONES: No acute fracture or dislocation. No worrisome bone lesions. SOFT TISSUES: No soft tissue swelling. No foreign body. OTHER: Status post bilateral hip replacement. Degenerative changes lower lumbar spine. Osteitis sym physis pubis. IMPRESSION: No acute posttraumatic changes. TECHNICAL DOCUMENTATION: JOB ID: [id number] [employer]- All Rights Reserved
== END ==
LOC: OD 10:03
PROVIDERS: ATTEND Physician Assistant
DX: M53.3 Sacrococcygeal disorders, not elsewhere classified (principal); M79.621 Pain in right upper arm; W19.XXXA Unspecified fall, initial encounter; M47.896 Other spondylosis, lumbar region; Z96.643 Presence of artificial hip joint, bilateral
CPT/HCPCS: 72220

== ENCOUNTER → 2017-11-22 | Outpatient (CLI) | payer MEDICARE, OTHER ==
--- NOTE | 2017-11-22 13:57 | RADIOLOGY REPORT (SQ) ---
EXAM DESCRIPTION: CT CHEST WITHOUT COMPLETED DATE/TIME: 11/22/2017 1:24 pm REASON FOR STUDY: PLEURAL EFFUSION J90 PLEURAL EFFUSION, NOT ELSEWHERE CLASSIFIED COMPARISON: None. TECHNIQUE: CT scan performed of the chest without intravenous contrast. Images reviewed with lung, soft tissue and bone windows. Reconstructed coronal and sagittal MPR images reviewed. All images st ored on PACS. All CT scanners at this facility use dose modulation, iterative reconstruction, and/or weight based d osing when appropriate to reduce radiation dose to as low as reasonably achievable (ALARA). [facility]: Dose Right [facility]: CareDose [facility]: Dose Right [facility]: Teradose 4D [facility]: [employer] RADIATION DOSE: CT Rad equipment meets quality standard of care and radiation dose reduction techniq ues were employed. CTDIvol: 5.6 mGy. DLP: 211 mGy-cm. mGy. LIMITATIONS: No technical limitations. FINDINGS: LUNGS AND PLEURA: Emphysematous changes with scattered focal areas of scar/fibrosis. Bro nchiectatic changes in the lungs. In the medial aspect of the left lower lobe, axial image 97, serie s 4, a 7-8 mm pulmonary nodule. A 1.0 cm nodular opacity in the periphery of the left lower lobe, ax ial image 94. Small pleural based nodule in the periphery of the right lower lobe, axial image 73. Slight to mild pleural based thickening in the right upper--mid hemithorax. Right apical mild pleuro parenchymal changes may represent scar/fibrosis. The central airways are clear. HILAR AND MEDIASTINAL STRUCTURES: No identified masses or abnormal nodes. No obvious aneurysm. HEART AND VASCULAR STRUCTURES: Mild atherosclerotic changes involving the thoracic aorta. Mild dila tation of the aortic arch and thoracic aorta which measure approximately 3.0- 3.1 cm in diameter. Pr ominence of the central pulmonary vasculature may be on the basis of underlying pulmonary hypertensio n. No pericardial effusion. UPPER ABDOMEN: Mild atherosclerotic changes involving the visualized upper abdominal aorta. Limited exam. THYROID AND OTHER SOFT TISSUES: No masses. No adenopathy. BONES: No significant finding. HARDWARE: None in the chest. OTHER: No other significant findings. IMPRESSION: 1 Emphysematous changes in the lungs with scattered focal areas of scar/fibrosis. Bronc hiectatic changes are also noted. 2 Bilateral pulmonary nodules. Slight to mild pleural thickening in the right upper-mid hemithorax. A follow-up three-month examination is suggested, 3. Additional findings as above. TECHNICAL DOCUMENTATION: JOB ID: [id number] Quality ID # [id number]: Final reports with documentation of one or more dose reduction techniques (e.g., Au tomated exposure control, adjustment of the mA and/or kV according to patient size, use of iterative reconstruction technique) 2010 [employer]- All Rights Reserved Reading location - IP/workstation name: [email or web address]
== END ==
LOC: RAD 13:07
PROVIDERS: ATTEND Physician Assistant
DX: J90 Pleural effusion, not elsewhere classified (principal)
CPT/HCPCS: 71250

== ENCOUNTER → 2017-12-01 | Outpatient (CLI) | payer MEDICARE, OTHER ==
--- NOTE | 2017-12-01 20:36 | XCELERA REPORT ---
[address] [address] Transthoracic Echocardiogram Report Name: ANNA AMEZCUA Age: 82 yrs Gender: Female : 1935 Patient Status: Outpatient Patient Location: Study Date: 12/01/2017 02:04 PM Height: 62 in Weight: 150 lb BSA: 1.7 m2 Reason For Study: DYSPNEA Ordering Physician: JAMAR PINZON Performed By: Jez Joe Interpretation Summary .Min. posterior pericardial effusion. Calcified nondilated aortic root. Mild AV sclerosis, no , no AR. Mild mitral annular calcium, no MS, no MVP, no MR and no LA enlargement Mild / mod conc. LVH with normal LVEF and stage I LVDD, no RWMA, no LV enlargement. RA enlarged, mild pulm hypertension RVSP > 34, RAP 8 MMode/2D Measurements & Calculations RVDd: 3.0 cm LVIDd: 4.2 cm FS: 34.1 % Ao root diam: 2.9 cm IVSd: 0.89 cm LVIDs: 2.8 cm EDV(Teich): 79.7 ml LVPWd: 0.94 cm ESV(Teich): 29.2 ml Ao root area: 6.8 cm2 EF(Teich): 63.4 % Doppler Measurements & Calculations MV E max charley: MV dec slope: Ao V2 max: LV V1 max P.9 cm/sec 139.1 cm/sec 4.4 mmHg MV A max charley: 245.9 cm/sec2 Ao max PG: LV V1 max: 113.3 cm/sec MV dec time: 7.7 mmHg 104.8 cm/sec MV E/A: 0.73 0.34 sec PA V2 max: PI end-d charley: TR max charley: 109.1 cm/sec 85.7 cm/sec 250.8 cm/sec PA max P.8 mmHg TR max P.2 mmHg Left Ventricle The left ventricle is grossly normal size. There is mild to moderate concentric left ventricular hypertrophy. The left ventricular ejection fraction is normal. Doppler measurements suggest impaired left ventricular relaxation, which is associated with grade I/IV or mild diastolic dysfunction. No regional wall motion abnormalities noted. There is no thrombus. Right Ventricle The right ventricle is normal in size, thickness and function. The right ventricular systolic function is normal. Atria The right atrium is dilated. The left atrial size is normal. The interatrial septum is intact with no evidence for an atrial septal defect. Mitral Valve There is mild mitral annular calcification. The mitral valve leaflets appear normal. There is no evidence of stenosis, fluttering, or prolapse. There is no evidence of mitral valve prolapse. There is no mitral valve stenosis. There is no mitral regurgitation noted. Aortic Valve The aortic valve opens well. The aortic valve is calcified. The aortic valve is trileaflet. There is no aortic valvular vegetation. There is no aortic valve stenosis. No aortic regurgitation is present. Tricuspid Valve The tricuspid is normal in structure and function. There is a trace or physiologic amount of tricuspid regurgitation. Best estimated RVSP is approximately 34 mm/Hg. Pulmonic Valve There is a trace or physiologic amount of pulmonic regurgitation. Great Vessels The aortic root is normal size. Effusions Minimal pericardial effusion. I WMSI = 1.00 % Normal = 100 Segments Size X - Cannot 1 - Normal 2 - 3 - Akinetic4 - 1-2 small Interpret Hypokinetic Dyskinetic 3-5 moderate 5 - 6-14 large Aneurysmal 15-16 diffuse : JAMAR PINZON > Eulogio Spencer
== END ==
LOC: SP 13:42
PROVIDERS: ATTEND Physician Assistant
DX: R06.00 Dyspnea, unspecified (principal)
CPT/HCPCS: 93306

== ENCOUNTER 2018-01-29 19:10 | Inpatient (IN) | payer MEDICARE, OTHER ==
[2018-01-29] MEDS ORDERED: METHYLPREDNISOLONE INJ 125 MG/2 ML SDV IV ONE (20:06)
[2018-01-29] MEDS ORDERED: IPRATROPIUM/ALBUTEROL 0.5-2.5 MG/3 ML AMPUL NEB ONE (20:06)
[2018-01-29] MEDS ORDERED: NORMAL SALINE 1000 ML 1,000 ML IV ONE (20:27)
[2018-01-29] MEDS: MAGNESIUM SULFATE/D5W 1 GM/100 ML RTUPB IV SCH ×2 (20:29→21:01)
--- NOTE | 2018-01-29 20:29 | ER Document Report ---
ED General - General Chief Complaint: Respiratory Distress Stated Complaint: DIFFICULTY BREATHING Time Seen by Provider: 01/29/18 20:03 Cannot obtain history due to: Unstable vital signs Notes: Patient is an 82 year old female with a past medical history of COPD with oxygen dependence of 3 L of nasal cannula at baseline who presents with 24-48 hours of progressively worsening shortness of breath that became much worse in the last several hours. History is limited initially as the patient is in overt respiratory distress at the time of initial evaluation requiring rapid intervention to prevent respiratory decompensation. Family at the bedside does note that the patient has had a history of severe COPD exacerbations in the past and required hospitalization approximately 1 year ago for a similar presentation. She has not apparently seen her primary doctor regarding her recent illness. They have been getting home nebulizers without significant improvement. TRAVEL OUTSIDE OF THE [place] IN LAST 30 DAYS: No - Related Data Allergies/Adverse Reactions: nitrofurantoin [Nitrofurantoin] Allergy (Severe, Verified 01/29/18 19:13) Hyperactivity povidone-iodine [From Betadine] Allergy (Severe, Verified 01/29/18 19:13) Blisters (topical iodine only) Soap [From Betadine] Allergy (Severe, Verified 01/29/18 19:13) Topical only-blisters gabapentin [From Neurontin] Allergy (Intermediate, Verified 01/29/18 19:13) Rash latex Allergy (Mild, Verified 01/29/18 19:13) metaxalone [From Skelaxin] Allergy (Mild, Verified 01/29/18 19:13) Past Medical History - General Information source: Patient, Relative - Social History Smoking Status: Former Smoker Frequency of alcohol use: None Drug Abuse: None Lives with: Family Family History: Reviewed & Not Pertinent, Hypertension - Past Medical History Cardiac Medical History: Reports: Hx Hypertension Denies: Hx Coronary Artery Disease, Hx Heart Attack Pulmonary Medical History: Reports: Hx Asthma, Hx Bronchitis, Hx COPD Denies: Hx Pneumonia Neurological Medical History: Reports: Hx Cerebrovascular Accident - 11/2005 during sx, 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 Denies: Hx Seizures Renal/ Medical History: Denies: Hx Peritoneal Dialysis GI Medical History: Reports: Hx Gastroesophageal Reflux Disease. Denies: Hx Hepatitis, Hx Ulcer Musculoskeltal Medical History: Reports Hx Arthritis - Osteo Psychiatric Medical History: Reports: Hx Depression Infectious Medical History: Denies: Hx Hepatitis Past Surgical History: Denies: Hx Hysterectomy, Hx Mastectomy, Hx Open Heart Surgery, Hx Pacemaker - Immunizations Hx Diphtheria, Pertussis, Tetanus Vaccination: Yes Hx Pneumococcal Vaccination: 04/02/11 Review of Systems - Review of Systems Notes: Constitutional: Negative for fever. HENT: Negative for sore throat. Eyes: Negative for visual changes. Cardiovascular: Negative for chest pain. Respiratory: Positive for shortness of breath. Gastrointestinal: Negative for abdominal pain, vomiting or diarrhea. Genitourinary: Negative for dysuria. Musculoskeletal: Negative for back pain. Skin: Negative for rash. Neurological: Negative for headaches, weakness or numbness. 10 point ROS negative except as marked above and in HPI. Physical Exam - Vital signs Vitals: Resp Pulse Ox 40 H 95 01/29/18 19:36 01/29/18 19:36 Interpretation: Tachycardic, Tachypneic Notes: PHYSICAL EXAMINATION: GENERAL: Appears very uncomfortable, in moderate to severe respiratory distress HEAD: Atraumatic, normocephalic. EYES: Pupils equal round and reactive to light, extraocular movements intact, sclera anicteric, conjunctiva are normal. ENT: nares patent, oropharynx clear without exudates. Moderately dry mucous membranes. NECK: Normal range of motion, supple without lymphadenopathy LUNGS: Diminished air movement globally. Severe expiratory wheezing in all lung sears with a prolonged end expiratory phase. HEART: Regular tachycardia without murmurs ABDOMEN: Soft, nontender, normoactive bowel sounds. No guarding, no rebound. No masses appreciated. EXTREMITIES: Normal range of motion, 1+ pitting edema in the bilateral lower extremities that is equal and symmetric. No cyanosis. NEUROLOGICAL: No focal neurological deficits. Moves all extremities spontaneously and on command. PSYCH: Moderately anxious SKIN: Warm, Dry, normal turgor, no rashes or lesions noted. Course - Re-evaluation Re-evalutation: 01/29/18 20:00 Patient presents in respiratory distress, initially breathing 42 times per minute, obvious retractions. Patient is unable to speak in anything but a one word sentence at time of initial presentation. Scattered wheezing in all lung sears, diminished air movement throughout. Patient was immediately placed on BiPAP. Continuous in-line nebulizers will be initiated. Will give 2 g of magnesium rapidly over 20 minutes. 125 mg of Solu-Medrol be administered. Maintenance fluids have been initiated. Chest x-ray and labs will be obtained. Patient is critically ill and will require frequent reassessments for evaluation of possible respiratory decompensation. 01/29/18 20:30 Work of breathing much improved on bipap. No longer having retractions although does continue to be tachypneic, breathing currently 28 breaths per minute. She is however able to speak in complete sentence at this time point. Much improved air movement in all lung sears. Will continue to reassess at regular intervals. I have been able to speak more with the patient and family at this time. They report that the patient's symptoms have been getting progressively worse over the last 24 hours that became abruptly much worse in the last several hours. History of similar in the past with severe COPD exacerbations. The patient states overall she feels dramatically better on BiPAP but is asking if she can have something to drink. Continuous in-line nebs are ongoing. I have asked her to continue to hold off and tolerate the BiPAP so we can continue to improve her work of breathing. 01/29/18 21:28 Patient continues to be much improved, now breathing around 22-24 breaths per minute. 97% on 35% fi02. No longer in distress. CXR clear. Labs overall unremarkable. Stable for hospitalization at this time. I have discussed with Dr. Orlando who has accepted for admission. - Vital Signs Vital signs: Temp Pulse Resp BP Pulse Ox 98.6 F 93 36 H 140/66 H 100 01/30/18 00:31 01/30/18 00:31 01/30/18 00:31 01/30/18 00:31 01/30/18 00:31 - Laboratory Result Diagrams: 01/29/18 19:36 01/29/18 19:36 Laboratory results interpreted by me: 01/29/18 01/29/18 01/29/18 19:36 19:36 19:36 WBC 11.3 H RBC 3.52 L Hgb 11.3 L Hct 33.4 L RDW 14.3 H Seg Neuts % (Manual) 90 H Lymphocytes % (Manual) 2 L Abs Neuts (Manual) 10.2 H Abs Lymphs (Manual) 0.2 L PT Sodium 130.9 L Chloride 92 L Creatinine 0.40 L Glucose 148 H AST 49 H ALT 56 H NT-Pro-B Natriuret Pep 621 H Total Protein 6.1 L Albumin 3.3 L TSH 01/29/18 01/29/18 19:36 19:36 WBC RBC Hgb Hct RDW Seg Neuts % (Manual) Lymphocytes % (Manual) Abs Neuts (Manual) Abs Lymphs (Manual) PT 15.7 H Sodium Chloride Creatinine Glucose AST ALT NT-Pro-B Natriuret Pep Total Protein Albumin TSH 0.44 L - Diagnostic Test Radiology reviewed: Image reviewed, Reports reviewed Radiology results interpreted by me: 01/30/18 03:57 Chest x-ray: No acute infiltrate or pneumothorax. Emphysema. - EKG Interpretation by Me Additional EKG results interpreted by me: 01/30/18 03:59 Sinus rhythm. Rate 96. No ST elevations or depressions. QTC is 435. Critical Care Note - Critical Care Note Total time excluding time spent on procedures (mins): 35 Comments: Critical care time spent obtaining history from patient or surrogate, discussions with consultants, development of treatment plan with patient or surrogate, evaluation of patient's response to treatment, examination of patient , ordering and performing treatments and interventions, ordering and review of laboratory studies, re-evaluation of patient's condition, ordering and review of radiographic studies and review of old charts Discharge - Discharge Clinical Impression: Respiratory distress, COPD exacerbation Condition: Fair Disposition: ADMITTED INPATIENT Admitting Provider: Johanny Unit Admitted: [facility]
[2018-01-29 20:34] LABS: HEMATOCRIT 33.4 % (36.0-47.0); HEMOGLOBIN 11.3 g/dL (12.0-15.5); MEAN CORPUSCULAR HGB CONC 33.7 g/dL (32.0-36.0); MEAN CORPUSCULAR VOLUME 95 fl (80-97); PLATELET COUNT 167 10^3/uL (150-450); RED BLOOD COUNT 3.52 10^6/uL (3.72-5.28); RED CELL DISTRIBUTION WIDTH 14.3 % (11.5-14.0); WHITE BLOOD COUNT 11.3 10^3/uL (4.0-10.5)
[2018-01-29 20:57] LABS: NT PRO BNP 621 pg/mL (<450)
[2018-01-29 20:59] LABS: ABSOLUTE LYMPHOCYTES# (MANUAL) 0.2 10^3/uL (0.5-4.7); ABSOLUTE MONOCYTES # (MANUAL) 0.9 10^3/uL (0.1-1.4); ABSOLUTE NEUTROPHILS# (MANUAL) 10.2 10^3/uL (1.7-8.2); BASOPHILS % (MANUAL) 0 % (0-2); EOSINOPHILS % (MANUAL) 0 % (0-6); LYMPHOCYTES % (MANUAL) 2 % (13-45); MONOCYTES % (MANUAL) 8 % (3-13); SEGMENTED NEUTROPHILS % (MAN) 90 % (42-78); TOTAL CELLS COUNTED 100
[2018-01-29 21:00] LABS: HYPOCHROMASIA SLIGHT
[2018-01-29 21:01] LABS: ANISOCYTOSIS SLIGHT; PLATELET COMMENT ADEQUATE
[2018-01-29 21:03] LABS: ALANINE AMINOTRANSFERASE 56 U/L (9-52); ALBUMIN 3.3 g/dL (3.5-5.0); ALKALINE PHOSPHATASE 101 U/L (38-126); ANION GAP 9 (5-19); ASPARTATE AMINO TRANSFERASE 49 U/L (14-36); BILIRUBIN,DIRECT 0.4 mg/dL (0.0-0.4); BILIRUBIN,TOTAL 0.5 mg/dL (0.2-1.3); BLOOD UREA NITROGEN 11 mg/dL (7-20); CALCIUM 8.6 mg/dL (8.4-10.2); CARBON DIOXIDE 30 mmol/L (22-30); CHLORIDE 92 mmol/L (98-107); GLUCOSE 148 mg/dL (75-110); POTASSIUM 4.3 mmol/L (3.6-5.0); SODIUM 130.9 mmol/L (137-145); TOTAL PROTEIN 6.1 g/dL (6.3-8.2)
--- NOTE | 2018-01-29 21:08 | RADIOLOGY REPORT (SQ) ---
EXAM DESCRIPTION: CHEST SINGLE VIEW COMPLETED DATE/TIME: 01/29/2018 8:55 pm REASON FOR STUDY: sob COMPARISON: 11/22/2017 and 09/03/2017 EXAM PARAMETERS: NUMBER OF VIEWS: One view. TECHNIQUE: Single frontal radiographic view of the chest acquired. RADIATION DOSE: NA LIMITATIONS: None. FINDINGS: LUNGS AND PLEURA: Stable pulmonary exam demonstrating chronic emphysematous changes and as ymmetric biapical pleural/ parenchymal scarring. No focal consolidation. No pneumothorax. No pleur al effusion. MEDIASTINUM AND HILAR STRUCTURES: No masses. Contour normal. HEART AND VASCULAR STRUCTURES: Heart normal in size. Normal vasculature. BONES: No acute findings. HARDWARE: None in the chest. OTHER: No other significant finding. IMPRESSION: Stable radiographic appearance of the chest demonstrating emphysematous changes. No acu te findings. TECHNICAL DOCUMENTATION: JOB ID: [id number] [employer]- All Rights Reserved Reading location - IP/workstation name: [email or web address]
[2018-01-29 21:09] LABS: TROPONIN I < 0.012 ng/mL
[2018-01-29 22:21] LABS: INTERNATIONAL RATION (INR) 1.19; PARTIAL THROMBOPLASTIN TIME 29.3 SEC (23.5-35.8); PROTHROMBIN TIME 15.7 SEC (11.4-15.4)
[2018-01-29 22:30] LABS: LIPASE 37.2 U/L (23-300); PHOSPHORUS 3.2 mg/dL (2.5-4.5)
[2018-01-29 22:48] LABS: FREE T4 (FREE THYROXINE) 1.78 ng/dL (0.78-2.19)
--- NOTE | 2018-01-29 22:59 | EKG REPORT ---
SEVERITY:- OTHERWISE NORMAL ECG - SINUS RHYTHM BORDERLINE LEFT AXIS DEVIATION : Confirmed by: Yuli Anand MD 29-Jan-2018 22:58:55
[2018-01-29 23:02] LABS: THYROID STIMULATING HORMONE 0.44 uIU/mL (0.47-4.68)
[2018-01-29 23:34] LABS: ARTERIAL BLOOD BASE EXCESS 5.1 mmol/L; ARTERIAL BLOOD HCO3 30.2 mmol/L (20-26); ARTERIAL BLOOD PCO2 46.6 mmHg (35-45); ARTERIAL BLOOD PH 7.43 (7.35-7.45); ARTERIAL BLOOD PO2 108.2 mmHg (80-100); ARTERIAL BLOOD TOTAL CO2 31.6 mmol/L (21-25)
[2018-01-29 23:43] LABS: ARTERIAL BLOOD FIO2 25%
[2018-01-30 02:38] LABS: CREATINE KINASE MB 1.66 ng/mL (<4.55)
[2018-01-30 02:45] LABS: TROPONIN I < 0.012 ng/mL
[2018-01-30 03:39] LABS: URINE AMPHETAMINES SCREEN NEGATIVE; URINE BARBITURATES SCREEN NEGATIVE; URINE BENZODIAZEPINES SCREEN NEGATIVE; URINE COCAINE SCREEN NEGATIVE; URINE MARIJUANA (THC) SCREEN NEGATIVE; URINE METHADONE SCREEN NEGATIVE; URINE PHENCYCLIDINE SCREEN NEGATIVE
[2018-01-30 03:55] LABS: APPEARANCE,URINE SLIGHTLY-CLOUDY; BILIRUBIN,URINE NEGATIVE (NEGATIVE); COLOR,URINE YELLOW; GLUCOSE, URINE NEGATIVE (NEGATIVE); KETONES,URINE NEGATIVE (NEGATIVE); LEUKOCYTE ESTERASE,URINE LARGE (NEGATIVE); NITRITE,URINE POSITIVE (NEGATIVE); PROTEIN,URINE 100 mg/dL (NEGATIVE); UROBILINOGEN,URINE NEGATIVE mg/dL (<2.0)
[2018-01-30 04:35] LABS: HEMATOCRIT 29.6 % (36.0-47.0); MEAN CORPUSCULAR HEMOGLOBIN 31.9 pg (27.0-33.4); MEAN CORPUSCULAR HGB CONC 33.8 g/dL (32.0-36.0); MEAN CORPUSCULAR VOLUME 94 fl (80-97); PLATELET COUNT 133 10^3/uL (150-450); RED BLOOD COUNT 3.14 10^6/uL (3.72-5.28); WHITE BLOOD COUNT 8.1 10^3/uL (4.0-10.5)
[2018-01-30 04:46] LABS: ALANINE AMINOTRANSFERASE 51 U/L (9-52); ALBUMIN 2.9 g/dL (3.5-5.0); ALKALINE PHOSPHATASE 83 U/L (38-126); ANION GAP 5 (5-19); ASPARTATE AMINO TRANSFERASE 41 U/L (14-36); BILIRUBIN,DIRECT 0.3 mg/dL (0.0-0.4); BILIRUBIN,TOTAL 0.3 mg/dL (0.2-1.3); BLOOD UREA NITROGEN 10 mg/dL (7-20); CALCIUM 8.3 mg/dL (8.4-10.2); CHOLESTEROL 79.67 mg/dL (0-200); GLUCOSE 155 mg/dL (75-110); POTASSIUM 4.4 mmol/L (3.6-5.0); TOTAL PROTEIN 5.4 g/dL (6.3-8.2); TRIGLYCERIDES 27 mg/dL (<150)
[2018-01-30 04:51] LABS: CARBON DIOXIDE 33 mmol/L (22-30); CHLORIDE 96 mmol/L (98-107); SODIUM 133.6 mmol/L (137-145)
[2018-01-30 05:15] LABS: ABSOLUTE LYMPHOCYTES# (MANUAL) 0.5 10^3/uL (0.5-4.7); ABSOLUTE MONOCYTES # (MANUAL) 0.2 10^3/uL (0.1-1.4); ABSOLUTE NEUTROPHILS# (MANUAL) 7.5 10^3/uL (1.7-8.2); BAND NEUTROPHILS % (MANUAL) 1 % (3-5); BASOPHILS % (MANUAL) 0 % (0-2); EOSINOPHILS % (MANUAL) 0 % (0-6); LYMPHOCYTES % (MANUAL) 6 % (13-45); METAMYELOCYTES % (MANUAL) 1 % (0); MONOCYTES % (MANUAL) 2 % (3-13); SEGMENTED NEUTROPHILS % (MAN) 90 % (42-78); TOTAL CELLS COUNTED 100
[2018-01-30 05:19] LABS: ANISOCYTOSIS SLIGHT; HYPOCHROMASIA 1+; OVALOCYTES 1+; PLATELET COMMENT DECREASED
[2018-01-30 05:23] LABS: DIRECT LDL < 30 mg/dL (<100)
[2018-01-30] MEDS: METHYLPREDNISOLONE INJ 125 MG/2 ML SDV IV SCH ×3 (06:13→17:36)
[2018-01-30] MEDS: IPRATROPIUM/ALBUTEROL 0.5-2.5 MG/3 ML AMPUL NEB PRN (07:36)
[2018-01-30 08:36] LABS: TROPONIN I < 0.012 ng/mL
[2018-01-30] MEDS ORDERED: LEVOFLOXACIN 750 MG/D5W RTU 750 MG/150 ML RTUPB IV SCH (10:00)
[2018-01-30] MEDS: ENOXAPARIN SODIUM INJ 40 MG/0.4 ML DISP.SYRIN SUBCUT SCH (10:53)
--- NOTE | 2018-01-30 13:36 | PDOC H&P ---
History of Present Illness Admission Date/PCP: 01/29/18 21:41 CHRISTIAN SMITH MD History of Present Illness: ANNA AMEZCUA is a 82 year old female she has a history of COPD, she could emergency room last night for evaluation of shortness of breath, she was in respiratory distress, and emergency room she was stabilized, the breathing. Was supported with noninvasive ventilation BiPAP she almost got intubated on mechanical ventilation, when she presented the emergency room there was obvious intercostal chest retraction she was stabilized on the BiPAP. Past Medical History Cardiac Medical History: Reports: Hypertension Pulmonary Medical History: Reports: Asthma, Bronchitis, Chronic Obstructive Pulmonary Disease (COPD) GI Medical History: Reports: Gastroesophageal Reflux Disease Musculoskeltal Medical History: Reports: Arthritis - Osteo Psychiatric Medical History: Reports: Depression Hematology: Reports: Anemia Social History Lives with: Family Smoking Status: Former Smoker Frequency of Alcohol Use: None Hx Recreational Drug Use: No Drugs: None Hx Prescription Drug Abuse: No Family History Family History: Reviewed & Not Pertinent, Hypertension Parental Family History Reviewed: Yes Children Family History Reviewed: Yes Sibling(s) Family History Reviewed.: Yes Medication/Allergy Home Medications: Fluticasone/Salmeterol [Advair 500-50 Diskus 14 Dose/Diskus] 1 puff IH Q12 08/06 Levetiracetam [Keppra 500 mg Tablet] 500 mg PO Q12 08/06/17 Omeprazole 40 mg PO Q12 08/06/17 Sertraline HCl [Zoloft] 100 mg PO DAILY 08/06/17 Tiotropium Thomas [Spiriva Handihaler 5 Cap/Kit (18 Mcg/Cap)] 1 puff IH DAILY 08/06/17 Trazodone HCl [Desyrel] 150 mg PO QHS 08/06/17 Aspirin [Aspirin EC] 81 mg DAILY 01/30/18 Atorvastatin Calcium [Lipitor 40 mg Tablet] 40 mg PO QHS 01/30/18 Atorvastatin Calcium [Lipitor 80 mg Tablet] 80 mg QHS 01/30/18 Diclofenac Sodium [Voltaren] QIDP PRN 01/30/18 Ipratropium Thomas [Atrovent 0.02% Neb 0.5 mg/2.5 ml Ampul] 0.5 mg NEB Q6HP PRN 01/30/18 Lactobacillus Acidophilus [Probiotic] 1 tab BID 01/30/18 Trazodone HCl 150 mg PO 01/30/18 Allergies/Adverse Reactions: nitrofurantoin [Nitrofurantoin] Allergy (Severe, Verified 01/29/18 19:13) Hyperactivity povidone-iodine [From Betadine] Allergy (Severe, Verified 01/29/18 19:13) Blisters (topical iodine only) Soap [From Betadine] Allergy (Severe, Verified 01/29/18 19:13) Topical only-blisters gabapentin [From Neurontin] Allergy (Intermediate, Verified 01/29/18 19:13) Rash latex Allergy (Mild, Verified 01/29/18 19:13) metaxalone [From Skelaxin] Allergy (Mild, Verified 01/29/18 19:13) Review of Systems Constitutional: ABSENT: chills, fever(s), headache(s), weight gain, weight loss Eyes: ABSENT: visual disturbances Ears: ABSENT: hearing changes Cardiovascular: PRESENT: dyspnea on exertion Respiratory: PRESENT: cough, dyspnea Gastrointestinal: ABSENT: abdominal pain, constipation, diarrhea, hematemesis, hematochezia, nausea, vomiting Genitourinary: ABSENT: dysuria, hematuria Musculoskeletal: PRESENT: other - She has hyperesthesia of the lower extremities , ordinary touch of the leg triggers severe pain suggesting neuropathy Integumentary: ABSENT: rash, wounds Neurological: PRESENT: paresthesias Psychiatric: ABSENT: anxiety, depression, homidical ideation, suicidal ideation Endocrine: ABSENT: cold intolerance, heat intolerance, menstrual abnormalities, polydipsia, polyuria Hematologic/Lymphatic: ABSENT: easy bleeding, easy bruising, lymphadenopathy Physical Exam Vital Signs: Temp Pulse Resp BP Pulse Ox 97.6 F 80 22 H 149/69 H 99 01/30/18 08:03 01/30/18 08:03 01/30/18 08:03 01/30/18 08:03 01/30/18 08:03 Intake & Output 01/29/18 01/30/18 01/31/18 06:59 06:59 06:59 Intake Total 1151 250 Output Total 350 300 Balance 801 -50 Weight 70.4 kg General appearance: PRESENT: severe distress Head exam: PRESENT: atraumatic Eye exam: PRESENT: PERRLA Ear exam: PRESENT: normal external ear exam Neck exam: PRESENT: full ROM Respiratory exam: PRESENT: crackles, rales Cardiovascular exam: PRESENT: RRR, +S1, +S2 Vascular exam: PRESENT: normal capillary refill GI/Abdominal exam: PRESENT: normal bowel sounds, soft Rectal exam: PRESENT: deferred Neurological exam: PRESENT: alert, CN II-XII grossly intact Psychiatric exam: PRESENT: appropriate affect, normal mood Skin exam: PRESENT: dry, intact, warm Results Laboratory Results: 01/30/18 04:19 01/30/18 04:19 01/29/18 01/29/18 01/30/18 22:35 23:10 02:30 WBC RBC Hgb Hct MCV MCH MCHC RDW Plt Count Seg Neutrophils % Lymphocytes % Monocytes % Eosinophils % Basophils % Absolute Neutrophils Absolute Lymphocytes Absolute Monocytes Absolute Eosinophils Absolute Basophils Carbonic Acid 1.40 H HCO3/H2CO3 Ratio 21:1 ABG pH 7.43 ABG pCO2 46.6 H ABG pO2 108.2 H ABG HCO3 30.2 H ABG O2 Saturation 98.0 ABG Base Excess 5.1 FiO2 25% Sodium Potassium Chloride Carbon Dioxide Anion Gap BUN Creatinine Est GFR ( Amer) Est GFR (Non-Af Amer) Glucose Calcium Total Bilirubin AST ALT Alkaline Phosphatase Ammonia < 8.7 L Total Protein Albumin Triglycerides Cholesterol LDL Cholesterol Direct VLDL Cholesterol HDL Cholesterol Urine Color YELLOW Urine Appearance SLIGHTLY-CLOUDY Urine pH 6.0 Ur Specific [place] 1.010 Urine Protein 100 H Urine Glucose (UA) NEGATIVE Urine Ketones NEGATIVE Urine Blood SMALL H Urine Nitrite POSITIVE H Ur Leukocyte Esterase LARGE H Urine WBC (Auto) 50 Urine RBC (Auto) 1 01/30/18 01/30/18 04:19 04:19 WBC 8.1 RBC 3.14 L Hgb 10.0 L Hct 29.6 L MCV 94 MCH 31.9 MCHC 33.8 RDW 14.0 Plt Count 133 L Seg Neutrophils % Not Reportable Lymphocytes % Not Reportable Monocytes % Not Reportable Eosinophils % Not Reportable Basophils % Not Reportable Absolute Neutrophils Not Reportable Absolute Lymphocytes Not Reportable Absolute Monocytes Not Reportable Absolute Eosinophils Not Reportable Absolute Basophils Not Reportable Carbonic Acid HCO3/H2CO3 Ratio ABG pH ABG pCO2 ABG pO2 ABG HCO3 ABG O2 Saturation ABG Base Excess FiO2 Sodium 133.6 L Potassium 4.4 Chloride 96 L Carbon Dioxide 33 H Anion Gap 5 BUN 10 Creatinine 0.39 L Est GFR ( Amer) > 60 Est GFR (Non-Af Amer) > 60 Glucose 155 H Calcium 8.3 L Total Bilirubin 0.3 AST 41 H ALT 51 Alkaline Phosphatase 83 Ammonia Total Protein 5.4 L Albumin 2.9 L Triglycerides 27 Cholesterol 79.67 LDL Cholesterol Direct < 30 VLDL Cholesterol 5.0 L HDL Cholesterol 44 Urine Color Urine Appearance Urine pH Ur Specific [place] Urine Protein Urine Glucose (UA) Urine Ketones Urine Blood Urine Nitrite Ur Leukocyte Esterase Urine WBC (Auto) Urine RBC (Auto) 01/30/18 01/30/18 01/30/18 01:39 01:39 07:31 Creatine Kinase 55 240 H CK-MB (CK-2) 1.66 Troponin I < 0.012 01/30/18 07:31 Creatine Kinase CK-MB (CK-2) 5.00 H Troponin I < 0.012 Impressions: Chest X-Ray 01/29/18 20:04 IMPRESSION: Stable radiographic appearance of the chest demonstrating emphysematous changes. No acute findings. Assessment & Plan - Diagnosis (1) COPD with acute exacerbation Is this a current diagnosis for this admission?: Yes Plan: On chest auscultation there is diffuse crackles I did not appreciate any obvious wheeze suggesting that she may have interstitial lung disease, high- resolution CT chest to be ordered to define if he has interstitial lung disease , history of COPD, we will continue IV Solu-Medrol and bronchodilators (2) Respiratory distress Is this a current diagnosis for this admission?: Yes Plan: Patient presented with respiratory distress, she is presently not requiring noninvasive ventilation, in the emergency room she was obviously in distress with retraction of the intercostal muscles she was stabilized with bronchodilators and BiPAP, she has standby BiPAP but not presently requiring BiPAP, she is presently on nasal cannula
[2018-01-30] MEDS ORDERED: LEVETIRACETAM 500 MG TABLET PO SCH (13:45)
[2018-01-30] MEDS ORDERED: SERTRALINE HCL 50 MG TABLET PO ONE (14:15)
[2018-01-30] MEDS ORDERED: LANSOPRAZOLE 30 MG TAB.RAP.DR PO ONE (14:30)
[2018-01-30] MEDS ORDERED: ASPIRIN 81 MG TABLET, ENT COATED PO ONE (14:30)
--- NOTE | 2018-01-30 14:58 | RADIOLOGY REPORT (SQ) ---
EXAM DESCRIPTION: CT CHEST WITHOUT COMPLETED DATE/TIME: 01/30/2018 1:31 pm REASON FOR STUDY: Evaluate for interstitial lung disease. COMPARISON: Chest x-ray 01/29/2018. CT chest 11/22/2017, 08/06/2017. TECHNIQUE: CT scan performed of the chest without intravenous contrast. Images reviewed with lung, soft tissue and bone windows. Reconstructed coronal and sagittal MPR images reviewed. All images st ored on PACS. All CT scanners at this facility use dose modulation, iterative reconstruction, and/or weight based d osing when appropriate to reduce radiation dose to as low as reasonably achievable (ALARA). [facility]: Dose Right [facility]: CareDose [facility]: Dose Right [facility]: Teradose 4D [facility]: [employer] RADIATION DOSE: CT Rad equipment meets quality standard of care and radiation dose reduction techniq ues were employed. CTDIvol: 6.9 mGy. DLP: 279 mGy-cm. mGy. LIMITATIONS: No technical limitations. FINDINGS: LUNGS AND PLEURA: There are bilateral emphysematous changes with areas of pleural scarring and fibrosis. Patchy ground-glass opacities are seen at the right lower lobe with small area of air space opacity at the left lower lobe. No pneumothorax or pleural effusion. HILAR AND MEDIASTINAL STRUCTURES: Visualized lymph nodes at the mediastinum measure less than 1 cm in short axis. Limited evaluation for hilar adenopathy in the absence of intravenous contrast. HEART AND VASCULAR STRUCTURES: No thoracic aortic aneurysm. Trace pericardial effusion. UPPER ABDOMEN: No significant findings. Limited exam. THYROID AND OTHER SOFT TISSUES: The visualized thyroid gland is unremarkable. BONES: Multilevel degenerative changes are seen within the spine. HARDWARE: None in the chest. IMPRESSION: Emphysema. Patchy ground-glass opacities at the right lower lobe and airspace opacity a t the left lower lobe, may be secondary to pneumonia or atelectasis. Trace pericardial effusion. TECHNICAL DOCUMENTATION: JOB ID: [id number] [email or web address] Quality ID # [id number]: Final reports with documentation of one or more dose reduction techniques (e.g., Au tomated exposure control, adjustment of the mA and/or kV according to patient size, use of iterative reconstruction technique) 2010 [employer]- All Rights Reserved Reading location - IP/workstation name: [email or web address]
[2018-01-30 15:00] LABS: CREATINE KINASE MB 4.46 ng/mL (<4.55)
[2018-01-30 15:02] LABS: TROPONIN I < 0.012 ng/mL
[2018-01-30] MEDS: LACTOBACILLUS ACIDOPHILUS 250 MG TAB PO SCH (17:34)
[2018-01-30] MEDS: TIOTROPIUM BROMIDE DPI 5 CAP/KIT (18 MCG/CAP) IH SCH (17:35)
[2018-01-30] MEDS ORDERED: LACTOBACILLUS ACIDOPHILUS PO SCH (18:00)
[2018-01-30] MEDS ORDERED: FLUTICASONE/SALMETEROL DISKUS 500-50 MCG/DOSE IH ONE ×2 (18:15→18:54)
[2018-01-30] MEDS ORDERED: (PENDING PHARMACY ID) (Trazodone Hcl [Desyrel] 150 MG) PO SCH (22:00)
[2018-01-30] MEDS: LEVETIRACETAM 500 MG TABLET PO SCH (22:18)
[2018-01-30] MEDS: TRAZODONE HCL 50 MG TABLET PO SCH (22:20)
[2018-01-31] MEDS: METHYLPREDNISOLONE INJ 125 MG/2 ML SDV IV SCH ×3 (03:05→17:59)
[2018-01-31 05:47] LABS: HEMATOCRIT 30.2 % (36.0-47.0); HEMOGLOBIN 10.1 g/dL (12.0-15.5); MEAN CORPUSCULAR HEMOGLOBIN 31.6 pg (27.0-33.4); MEAN CORPUSCULAR HGB CONC 33.4 g/dL (32.0-36.0); MEAN CORPUSCULAR VOLUME 95 fl (80-97); PLATELET COUNT 157 10^3/uL (150-450); WHITE BLOOD COUNT 7.5 10^3/uL (4.0-10.5)
[2018-01-31 06:12] LABS: ALANINE AMINOTRANSFERASE 54 U/L (9-52); ALBUMIN 2.9 g/dL (3.5-5.0); ALKALINE PHOSPHATASE 78 U/L (38-126); ANION GAP 7 (5-19); ASPARTATE AMINO TRANSFERASE 41 U/L (14-36); BILIRUBIN,DIRECT 0.3 mg/dL (0.0-0.4); BILIRUBIN,TOTAL 0.3 mg/dL (0.2-1.3); BLOOD UREA NITROGEN 18 mg/dL (7-20); CALCIUM 8.7 mg/dL (8.4-10.2); CARBON DIOXIDE 32 mmol/L (22-30); CHLORIDE 98 mmol/L (98-107); GLUCOSE 119 mg/dL (75-110); POTASSIUM 4.5 mmol/L (3.6-5.0); SODIUM 136.6 mmol/L (137-145); TOTAL PROTEIN 5.5 g/dL (6.3-8.2)
[2018-01-31 06:21] LABS: ABSOLUTE LYMPHOCYTES# (MANUAL) 0.4 10^3/uL (0.5-4.7); ABSOLUTE NEUTROPHILS# (MANUAL) 7.1 10^3/uL (1.7-8.2); BAND NEUTROPHILS % (MANUAL) 1 % (3-5); BASOPHILS % (MANUAL) 0 % (0-2); EOSINOPHILS % (MANUAL) 0 % (0-6); HYPOCHROMASIA 1+; LYMPHOCYTES % (MANUAL) 5 % (13-45); METAMYELOCYTES % (MANUAL) 1 % (0); MONOCYTES % (MANUAL) 0 % (3-13); PLATELET COMMENT ADEQUATE; POLYCHROMASIA SLIGHT; SEGMENTED NEUTROPHILS % (MAN) 93 % (42-78); TOTAL CELLS COUNTED 100
[2018-01-31] MEDS: LANSOPRAZOLE 30 MG TAB.RAP.DR PO SCH ×2 (06:48→18:00)
[2018-01-31] MEDS ORDERED: FLUTICASONE/SALMETEROL DISKUS 500-50 MCG/DOSE IH SCH (08:00)
--- NOTE | 2018-01-31 08:03 | PDOC PROGRESS REPORT ---
Subjective Progress Note for:: 01/31/18 Subjective:: Patient was admitted because COPD and a pneumonia Patient's currently doing better History of the chronic bronchiectasis Patient's denied any chest pain denied any shortness of the breath Reason For Visit: ACUTE COPD EXACERBATION, ACUTE RESPIRATORY FAILURE Physical Exam Vital Signs: Temp Pulse Resp BP Pulse Ox 97.6 F 69 20 144/72 H 100 01/31/18 03:29 01/31/18 03:29 01/31/18 03:29 01/31/18 03:29 01/31/18 03:29 Intake & Output 01/30/18 01/31/18 02/01/18 06:59 06:59 06:59 Intake Total 1151 755 Output Total 350 1450 Balance 801 -695 Weight 70.4 kg 70.3 kg General appearance: PRESENT: no acute distress, well-developed, well-nourished Head exam: PRESENT: atraumatic, normocephalic Eye exam: PRESENT: conjunctiva pink, EOMI, PERRLA. ABSENT: scleral icterus Ear exam: PRESENT: normal external ear exam Mouth exam: PRESENT: moist, tongue midline Neck exam: PRESENT: full ROM. ABSENT: carotid bruit, JVD, lymphadenopathy, thyromegaly Respiratory exam: PRESENT: decreased breath sounds, rhonchi Cardiovascular exam: PRESENT: RRR. ABSENT: diastolic murmur, rubs, systolic murmur Pulses: PRESENT: normal dorsalis pedis pul, +2 pedal pulses bilateral Vascular exam: PRESENT: normal capillary refill GI/Abdominal exam: PRESENT: normal bowel sounds, soft. ABSENT: distended, guarding, mass, organolmegaly, rebound, tenderness Rectal exam: PRESENT: deferred Extremities exam: ABSENT: pedal edema Musculoskeletal exam: PRESENT: ambulatory Neurological exam: PRESENT: alert, awake, oriented to person, oriented to place , oriented to time, oriented to situation, CN II-XII grossly intact. ABSENT: motor sensory deficit Psychiatric exam: PRESENT: appropriate affect, normal mood. ABSENT: homicidal ideation, suicidal ideation Skin exam: PRESENT: dry, intact, warm. ABSENT: cyanosis, rash Results Laboratory Results: 01/31/18 05:01 01/31/18 05:01 01/31/18 01/31/18 05:01 05:01 WBC 7.5 RBC 3.20 L Hgb 10.1 L Hct 30.2 L MCV 95 MCH 31.6 MCHC 33.4 RDW 14.0 Plt Count 157 Seg Neutrophils % Not Reportable Lymphocytes % Not Reportable Monocytes % Not Reportable Eosinophils % Not Reportable Basophils % Not Reportable Absolute Neutrophils Not Reportable Absolute Lymphocytes Not Reportable Absolute Monocytes Not Reportable Absolute Eosinophils Not Reportable Absolute Basophils Not Reportable Sodium 136.6 L Potassium 4.5 Chloride 98 Carbon Dioxide 32 H Anion Gap 7 BUN 18 Creatinine 0.42 L Est GFR ( Amer) > 60 Est GFR (Non-Af Amer) > 60 Glucose 119 H Calcium 8.7 Total Bilirubin 0.3 AST 41 H ALT 54 H Alkaline Phosphatase 78 Total Protein 5.5 L Albumin 2.9 L 01/30/18 01/30/18 01/30/18 01:39 01:39 07:31 Creatine Kinase 55 240 H CK-MB (CK-2) 1.66 Troponin I < 0.012 01/30/18 01/30/18 01/30/18 07:31 13:41 13:41 Creatine Kinase 215 H CK-MB (CK-2) 5.00 H 4.46 Troponin I < 0.012 < 0.012 Impressions: Chest X-Ray 01/29/18 20:04 IMPRESSION: Stable radiographic appearance of the chest demonstrating emphysematous changes. No acute findings. Chest CT 01/30/18 00:00 IMPRESSION: Emphysema. Patchy ground-glass opacities at the right lower lobe and airspace opacity at the left lower lobe, may be secondary to pneumonia or atelectasis. Trace pericardial effusion. Assessment & Plan - Diagnosis (2) COPD with acute exacerbation Is this a current diagnosis for this admission?: Yes Plan: Continues to nebulizer treatment continues the IV steroid with consult to Dr. Hernandez who saw the patient outpatients regularly (3) Respiratory distress Is this a current diagnosis for this admission?: Yes Plan: Currently all stable (4) Bacterial pneumonia Is this a current diagnosis for this admission?: Yes Plan: With start the patient on IV cefepime and azithromycin DC the Levaquin due to the patient have underlying significant seizures disorders (5) Chronic bronchiectasis not affecting current episode of care Is this a current diagnosis for this admission?: Yes Plan: Continues to current medication will get the sputum culture (6) Depression Qualifiers: Depression Type: major depressive disorder Major depression recurrence: recurrent Major depression episode severity: mild Is this a current diagnosis for this admission?: Yes (7) Hypertension Qualifiers: Hypertension type: essential hypertension Is this a current diagnosis for this admission?: Yes (8) Stroke Qualifiers: CVA mechanism: unspecified Is this a current diagnosis for this admission?: No - Time Time Spent with patient: 15-24 minutes Medications reviewed and adjusted accordingly: Yes Anticipated discharge: Other Within: Other - Inpatient Certification Medical Necessity: Need Close Monitoring Due to Risk of Patient Decompensation, Need for IV Antibiotics Post Hospital Care: D/C Sand Cutter Documentation - Plan Summary Plan Summary: see order
[2018-01-31] MEDS: LEVETIRACETAM 500 MG TABLET PO SCH ×2 (10:24→21:45)
[2018-01-31] MEDS: AZITHROMYCIN 250 MG TABLET PO SCH (10:24)
[2018-01-31] MEDS: LACTOBACILLUS ACIDOPHILUS 250 MG TAB PO SCH ×2 (10:24→18:00)
[2018-01-31] MEDS: ASPIRIN 81 MG TABLET, ENT COATED PO SCH (10:24)
[2018-01-31] MEDS: ENOXAPARIN SODIUM INJ 40 MG/0.4 ML DISP.SYRIN SUBCUT SCH (10:24)
[2018-01-31] MEDS: SERTRALINE HCL 50 MG TABLET PO SCH (10:24)
[2018-01-31] MEDS: CEFEPIME 2 GM/D5W RTU 2 GM/50 ML RTUPB IV SCH ×2 (10:25→21:45)
[2018-01-31] MEDS: FLUTICASONE/SALMETEROL DISKUS 500-50 MCG/DOSE IH SCH ×2 (10:26→21:45)
--- NOTE | 2018-01-31 13:23 | PDOC CONSULTATION ---
Consultation Consult Date: 01/31/18 Attending physician:: CHRISTIAN SMITH Consult reason:: Acute on chronic respiratory failure History of Present Illness Admission Date/PCP: 01/29/18 21:41 CHRISTIAN SMITH MD History of Present Illness: ANNA AMEZCUA is a 82 year old female,O2 dependent COPD had been feeling poorly for several days which progressed to more shortness of breath and a cough she subsequently presented to the emergency room where which she was admitted with hypoxemia she denies nausea vomiting or diarrhea is she states she thinks she had fevers and chills but is not certain she does admit to a productive cough for brown phlegm she denies hemoptysis her PPD is negative dates unknown he denies history of chronic lung disease as a child she was to exposure to passive smoke as a child and as an adult she has no pets no recent travel she denies angina-like chest pain sleeps on 2-4 pillows occasional PND occasional nocturnal cough occasional edema she admits to snoring restless sleep nocturia 2-3 times per night unrestful sleep and some daytime somnolence Past Medical History Cardiac Medical History: Reports: Hypertension Denies: Coronary Artery Disease, Myocardial Infarction Pulmonary Medical History: Reports: Asthma, Bronchitis, Chronic Obstructive Pulmonary Disease (COPD) Denies: Pneumonia EENT Medical History: Reports: Cataracts Neurological Medical History: Denies: Seizures Endocrine Medical History: Denies: Obesity Renal/ Medical History: Denies: End Stage Renal Disease GI Medical History: Reports: Gastroesophageal Reflux Disease Denies: Hepatitis Musculoskeltal Medical History: Reports: Arthritis - Osteo Denies: Fibromyalgia Skin Medical History: Denies: Eczema, Psoriasis Psychiatric Medical History: Reports: Depression Traumatic Medical History: Denies: Traumatic Brain Injury Hematology: Reports: Anemia Denies: Sickle Cell Disease Infectious Medical History: Denies: Clostridium Difficile Past Surgical History Past Surgical History: Denies: Hysterectomy, Mastectomy, Pacemaker Social History Information Source: Patient, Relative, [facility] Records Lives with: Family Smoking Status: Former Smoker Passive smoke exposure as: Both Frequency of Alcohol Use: None Hx Recreational Drug Use: No Drugs: None Hx Prescription Drug Abuse: No Do you have pets?: No Have you had any respiratory illnesses as a child?: No Have you been exposed to any sick contacts recently?: No Have you had any recent respiratory illnesses?: Yes Have you travelled outside of [place] in the past 12 months?: No Family History Family History: CAD, COPD, Hypertension Parental Family History Reviewed: Yes Children Family History Reviewed: Yes Sibling(s) Family History Reviewed.: Yes Medication/Allergy Home Medications: Fluticasone/Salmeterol [Advair 500-50 Diskus 14 Dose/Diskus] 1 puff IH Q12 08/06 Levetiracetam [Keppra 500 mg Tablet] 500 mg PO Q12 08/06/17 Omeprazole 40 mg PO Q12 08/06/17 Sertraline HCl [Zoloft] 100 mg PO DAILY 08/06/17 Tiotropium [place] [Spiriva Handihaler 5 Cap/Kit (18 Mcg/Cap)] 1 puff IH DAILY 08/06/17 Trazodone HCl [Desyrel] 150 mg PO QHS 08/06/17 Aspirin [Aspirin EC] 81 mg DAILY 01/30/18 Atorvastatin Calcium [Lipitor 40 mg Tablet] 40 mg PO QHS 01/30/18 Atorvastatin Calcium [Lipitor 80 mg Tablet] 80 mg QHS 01/30/18 Diclofenac Sodium [Voltaren] 1 gm QIDP PRN 01/30/18 Ipratropium [place] [Atrovent 0.02% Neb 0.5 mg/2.5 ml Ampul] 0.5 mg NEB Q6HP PRN 01/30/18 Lactobacillus Acidophilus [Probiotic] 1 tab BID 01/30/18 Trazodone HCl 150 mg PO 01/30/18 Allergies/Adverse Reactions: nitrofurantoin [Nitrofurantoin] Allergy (Severe, Verified 01/29/18 19:13) Hyperactivity povidone-iodine [From Betadine] Allergy (Severe, Verified 01/29/18 19:13) Blisters (topical iodine only) Soap [From Betadine] Allergy (Severe, Verified 01/29/18 19:13) Topical only-blisters gabapentin [From Neurontin] Allergy (Intermediate, Verified 01/29/18 19:13) Rash latex Allergy (Mild, Verified 01/29/18 19:13) metaxalone [From Skelaxin] Allergy (Mild, Verified 01/29/18 19:13) Review of Systems Constitutional: ABSENT: headache(s), night sweats, weight gain Eyes: ABSENT: visual disturbances Ears: ABSENT: hearing changes Nose, Mouth, and Throat: ABSENT: mouth pain, sore throat Cardiovascular: PRESENT: dyspnea on exertion, orthropnea. ABSENT: palpitations Respiratory: PRESENT: cough, dyspnea, sputum. ABSENT: hemoptysis Gastrointestinal: ABSENT: abdominal pain, bloating, coffee ground emesis, dysphagia, hematemesis, hematochezia, melena Genitourinary: ABSENT: dysuria, hematuria Musculoskeletal: ABSENT: deformity, joint swelling Integumentary: ABSENT: pruritus, rash Neurological: PRESENT: confusion. ABSENT: abnormal speech, focal weakness, frequent falls Psychiatric: ABSENT: hallucinations, homidical ideation, suicidal ideation Endocrine: ABSENT: cold intolerance, heat intolerance, polydipsia, polyuria Physical Exam Vital Signs: Temp Pulse Resp BP Pulse Ox 98.4 F 84 18 147/81 H 99 01/31/18 11:52 01/31/18 11:52 01/31/18 11:52 01/31/18 11:52 01/31/18 11:52 Intake & Output 01/30/18 01/31/18 02/01/18 06:59 06:59 06:59 Intake Total 1151 755 Output Total 350 1450 487 Balance 801 -695 -487 Weight 70.4 kg 70.3 kg General appearance: PRESENT: cooperative, disheveled, hard of hearing Head exam: PRESENT: atraumatic, normocephalic Eye exam: PRESENT: conjunctiva pale, EOMI. ABSENT: nystagmus, periorbital swelling, scleral icterus Mouth exam: PRESENT: moist, neck supple, tongue midline Teeth exam: PRESENT: edentulous Neck exam: ABSENT: carotid bruit, JVD, lymphadenopathy, thyromegaly, tracheal deviation, tracheostomy Respiratory exam: PRESENT: crackles, decreased breath sounds, prolonged expiratory phas, rhonchi, unlabored, wheezes. ABSENT: retraction, stridor Cardiovascular exam: PRESENT: RRR, +S1, +S2 Pulses: PRESENT: normal radial pulses GI/Abdominal exam: PRESENT: normal bowel sounds, soft Extremities exam: ABSENT: calf tenderness, clubbing, joint swelling Musculoskeletal exam: ABSENT: deformity, dislocation Neurological exam: PRESENT: awake, oriented to person, oriented to place. ABSENT: oriented to time Psychiatric exam: PRESENT: normal mood Skin exam: PRESENT: dry, warm Results Laboratory Results: 01/31/18 05:01 01/31/18 05:01 01/31/18 01/31/18 05:01 05:01 WBC 7.5 RBC 3.20 L Hgb 10.1 L Hct 30.2 L MCV 95 MCH 31.6 MCHC 33.4 RDW 14.0 Plt Count 157 Seg Neutrophils % Not Reportable Lymphocytes % Not Reportable Monocytes % Not Reportable Eosinophils % Not Reportable Basophils % Not Reportable Absolute Neutrophils Not Reportable Absolute Lymphocytes Not Reportable Absolute Monocytes Not Reportable Absolute Eosinophils Not Reportable Absolute Basophils Not Reportable Sodium 136.6 L Potassium 4.5 Chloride 98 Carbon Dioxide 32 H Anion Gap 7 BUN 18 Creatinine 0.42 L Est GFR ( Amer) > 60 Est GFR (Non-Af Amer) > 60 Glucose 119 H Calcium 8.7 Total Bilirubin 0.3 AST 41 H ALT 54 H Alkaline Phosphatase 78 Total Protein 5.5 L Albumin 2.9 L 01/30/18 01/30/18 01/30/18 01:39 01:39 07:31 Creatine Kinase 55 240 H CK-MB (CK-2) 1.66 Troponin I < 0.012 01/30/18 01/30/18 01/30/18 07:31 13:41 13:41 Creatine Kinase 215 H CK-MB (CK-2) 5.00 H 4.46 Troponin I < 0.012 < 0.012 Impressions: Chest X-Ray 01/29/18 20:04 IMPRESSION: Stable radiographic appearance of the chest demonstrating emphysematous changes. No acute findings. Chest CT 01/30/18 00:00 IMPRESSION: Emphysema. Patchy ground-glass opacities at the right lower lobe and airspace opacity at the left lower lobe, may be secondary to pneumonia or atelectasis. Trace pericardial effusion. Assessment & Plan - Diagnosis (1) Respiratory distress Is this a current diagnosis for this admission?: Yes Plan: Composed of respiratory status very fragile slice post stress will put her in some distress (2) COPD (chronic obstructive pulmonary disease) with acute bronchitis Is this a current diagnosis for this admission?: Yes Plan: Consider holding the T appropriate as well as Advair for the time being Generic Name Dose Route Start Last Admin Trade Name Freq PRN Reason Stop Dose Admin Methylprednisolone Sodium Succinate 80 mg 01/31/18 10:00 01/31/18 10:25 Solu-Medrol Inj/Pf 125 Mg/2 Ml Sdv IV 03/02/18 09:59 80 mg Q8A CRISTIANO Tiotropium [place] 1 cap 01/30/18 18:00 01/30/18 17:35 Spiriva Handihaler 5 Cap/Kit (18 Mcg/Cap) IH 03/01/18 17:59 1 cap QPM CRISTIANO Albuterol/Ipratropium 3 ml 01/29/18 21:49 01/30/18 07:36 Duoneb 3 Ml Ampul NEB 02/28/18 21:48 3 ml [id number] PRN SHORTNESS OF BREATH Fluticasone/Salmeterol 1 inh 01/31/18 10:00 01/31/18 10:26 Advair 500-50 Diskus 14 Dose/Diskus IH 03/02/18 09:59 1 inh Q12 CRISTIANO (3) Chronic bronchiectasis not affecting current episode of care Is this a current diagnosis for this admission?: Yes Plan: certainly predisposes patient for airway infections (4) Hypertension Qualifiers: Hypertension type: essential hypertension Is this a current diagnosis for this admission?: Yes Plan: Stable at this time
[2018-01-31] MEDS ORDERED: ACETYLCYSTEINE 20% SOLN 800 MG/4 ML VIAL.NEB NEB ONE ×2 (14:00→15:00)
[2018-01-31] MEDS: IPRATROPIUM/ALBUTEROL 0.5-2.5 MG/3 ML AMPUL NEB PRN ×2 (16:03→20:13)
[2018-01-31] MEDS: TIOTROPIUM BROMIDE DPI 5 CAP/KIT (18 MCG/CAP) IH SCH (18:00)
[2018-01-31] MEDS: ACETYLCYSTEINE 20% SOLN 800 MG/4 ML VIAL.NEB NEB SCH (20:12)
[2018-01-31] MEDS: TRAZODONE HCL 50 MG TABLET PO SCH (21:45)
[2018-02-01] MEDS: METHYLPREDNISOLONE INJ 125 MG/2 ML SDV IV SCH ×3 (02:47→17:37)
[2018-02-01 05:45] LABS: HEMATOCRIT 30.4 % (36.0-47.0); HEMOGLOBIN 10.3 g/dL (12.0-15.5); MEAN CORPUSCULAR HEMOGLOBIN 31.9 pg (27.0-33.4); MEAN CORPUSCULAR HGB CONC 33.9 g/dL (32.0-36.0); MEAN CORPUSCULAR VOLUME 94 fl (80-97); PLATELET COUNT 166 10^3/uL (150-450); RED BLOOD COUNT 3.23 10^6/uL (3.72-5.28); RED CELL DISTRIBUTION WIDTH 14.4 % (11.5-14.0)
[2018-02-01 06:04] LABS: ALANINE AMINOTRANSFERASE 48 U/L (9-52); ALBUMIN 2.7 g/dL (3.5-5.0); ALKALINE PHOSPHATASE 65 U/L (38-126); ANION GAP 5 (5-19); ASPARTATE AMINO TRANSFERASE 33 U/L (14-36); BILIRUBIN,DIRECT 0.2 mg/dL (0.0-0.4); BILIRUBIN,TOTAL 0.2 mg/dL (0.2-1.3); BLOOD UREA NITROGEN 24 mg/dL (7-20); CALCIUM 8.5 mg/dL (8.4-10.2); CARBON DIOXIDE 34 mmol/L (22-30); CHLORIDE 99 mmol/L (98-107); GLUCOSE 110 mg/dL (75-110); POTASSIUM 4.4 mmol/L (3.6-5.0); SODIUM 138.3 mmol/L (137-145); TOTAL PROTEIN 5.2 g/dL (6.3-8.2)
[2018-02-01] MEDS: LANSOPRAZOLE 30 MG TAB.RAP.DR PO SCH ×2 (06:23→17:36)
[2018-02-01 06:28] LABS: ABSOLUTE LYMPHOCYTES# (MANUAL) 0.2 10^3/uL (0.5-4.7); ABSOLUTE MONOCYTES # (MANUAL) 0.1 10^3/uL (0.1-1.4); ABSOLUTE NEUTROPHILS# (MANUAL) 7.7 10^3/uL (1.7-8.2); BASOPHILS % (MANUAL) 0 % (0-2); EOSINOPHILS % (MANUAL) 0 % (0-6); LYMPHOCYTES % (MANUAL) 3 % (13-45); MONOCYTES % (MANUAL) 1 % (3-13); SEGMENTED NEUTROPHILS % (MAN) 96 % (42-78); TOTAL CELLS COUNTED 100
[2018-02-01 06:30] LABS: ANISOCYTOSIS SLIGHT; OVALOCYTES SLIGHT; PLATELET COMMENT ADEQUATE; POIKILOCYTOSIS SLIGHT; TOXIC GRANULATION 1+
[2018-02-01] MEDS: ACETYLCYSTEINE 20% SOLN 800 MG/4 ML VIAL.NEB NEB SCH ×2 (08:01→19:41)
[2018-02-01] MEDS: IPRATROPIUM/ALBUTEROL 0.5-2.5 MG/3 ML AMPUL NEB PRN ×2 (08:01→19:42)
--- NOTE | 2018-02-01 08:48 | PDOC PROGRESS REPORT ---
Subjective Progress Note for:: 02/01/18 Subjective:: Patient is currently doing well Patient's denied any chest pain denied any shortness of the breath Recent also get the chest physical therapy Reason For Visit: ACUTE COPD EXACERBATION, ACUTE RESPIRATORY FAILURE Physical Exam Vital Signs: Temp Pulse Resp BP Pulse Ox 97.4 F 85 18 148/67 H 100 02/01/18 08:09 02/01/18 08:09 02/01/18 08:09 02/01/18 08:09 02/01/18 08:09 Intake & Output 01/31/18 02/01/18 02/02/18 06:59 06:59 06:59 Intake Total 755 410 Output Total 1450 1137 Balance -695 -727 Weight 70.3 kg 67.4 kg General appearance: PRESENT: no acute distress, well-developed, well-nourished Head exam: PRESENT: atraumatic, normocephalic Eye exam: PRESENT: conjunctiva pink, EOMI, PERRLA. ABSENT: scleral icterus Ear exam: PRESENT: normal external ear exam Mouth exam: PRESENT: moist, tongue midline Neck exam: PRESENT: full ROM. ABSENT: carotid bruit, JVD, lymphadenopathy, thyromegaly Respiratory exam: PRESENT: clear to auscultation esperanza Cardiovascular exam: PRESENT: RRR. ABSENT: diastolic murmur, rubs, systolic murmur Pulses: PRESENT: normal dorsalis pedis pul, +2 pedal pulses bilateral Vascular exam: PRESENT: normal capillary refill GI/Abdominal exam: PRESENT: normal bowel sounds, soft. ABSENT: distended, guarding, mass, organolmegaly, rebound, tenderness Rectal exam: PRESENT: deferred Extremities exam: ABSENT: pedal edema Musculoskeletal exam: PRESENT: ambulatory Neurological exam: PRESENT: alert, awake, oriented to person, oriented to place , oriented to time, oriented to situation, CN II-XII grossly intact. ABSENT: motor sensory deficit Psychiatric exam: PRESENT: appropriate affect, normal mood. ABSENT: homicidal ideation, suicidal ideation Skin exam: PRESENT: dry, intact, warm. ABSENT: cyanosis, rash Results Laboratory Results: 02/01/18 04:20 02/01/18 04:20 02/01/18 02/01/18 04:20 04:20 WBC 8.0 RBC 3.23 L Hgb 10.3 L Hct 30.4 L MCV 94 MCH 31.9 MCHC 33.9 RDW 14.4 H Plt Count 166 Seg Neutrophils % Not Reportable Lymphocytes % Not Reportable Monocytes % Not Reportable Eosinophils % Not Reportable Basophils % Not Reportable Absolute Neutrophils Not Reportable Absolute Lymphocytes Not Reportable Absolute Monocytes Not Reportable Absolute Eosinophils Not Reportable Absolute Basophils Not Reportable Sodium 138.3 Potassium 4.4 Chloride 99 Carbon Dioxide 34 H Anion Gap 5 BUN 24 H Creatinine 0.46 L Est GFR ( Amer) > 60 Est GFR (Non-Af Amer) > 60 Glucose 110 Calcium 8.5 Total Bilirubin 0.2 AST 33 ALT 48 Alkaline Phosphatase 65 Total Protein 5.2 L Albumin 2.7 L 01/30/18 02:30 Clean Catch Midstream Urine Culture - Final Klebsiella Pneumoniae 01/30/18 01/30/18 01/30/18 01:39 01:39 07:31 Creatine Kinase 55 240 H CK-MB (CK-2) 1.66 Troponin I < 0.012 01/30/18 01/30/18 01/30/18 07:31 13:41 13:41 Creatine Kinase 215 H CK-MB (CK-2) 5.00 H 4.46 Troponin I < 0.012 < 0.012 Impressions: Chest X-Ray 01/29/18 20:04 IMPRESSION: Stable radiographic appearance of the chest demonstrating emphysematous changes. No acute findings. Chest CT 01/30/18 00:00 IMPRESSION: Emphysema. Patchy ground-glass opacities at the right lower lobe and airspace opacity at the left lower lobe, may be secondary to pneumonia or atelectasis. Trace pericardial effusion. Assessment & Plan - Diagnosis (1) COPD with acute exacerbation Is this a current diagnosis for this admission?: Yes Plan: Continues to nebulizer treatment continues the IV steroid with consult to Dr. Hernandez who saw the patient outpatients regularly (2) Respiratory distress Is this a current diagnosis for this admission?: Yes Plan: Currently all stable (3) Bacterial pneumonia Is this a current diagnosis for this admission?: Yes Plan: With start the patient on IV cefepime and azithromycin DC the Levaquin due to the patient have underlying significant seizures disorders (4) Chronic bronchiectasis not affecting current episode of care Is this a current diagnosis for this admission?: Yes Plan: Continues to current medication will get the sputum culture (5) Depression Qualifiers: Depression Type: major depressive disorder Major depression recurrence: recurrent Major depression episode severity: mild Is this a current diagnosis for this admission?: Yes (6) Hypertension Qualifiers: Hypertension type: essential hypertension Is this a current diagnosis for this admission?: Yes (7) Stroke Qualifiers: CVA mechanism: unspecified Is this a current diagnosis for this admission?: No (8) Seizure disorder Is this a current diagnosis for this admission?: Yes (9) Urinary tract infection Is this a current diagnosis for this admission?: Yes Plan: Continues to IV antibiotic - Time Time Spent with patient: 15-24 minutes Medications reviewed and adjusted accordingly: Yes Anticipated discharge: Home Within: Other - Inpatient Certification Medical Necessity: Need Close Monitoring Due to Risk of Patient Decompensation, Need for IV Antibiotics Post Hospital Care: D/C 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
[2018-02-01] MEDS: LEVETIRACETAM 500 MG TABLET PO SCH ×2 (10:33→21:31)
[2018-02-01] MEDS: ASPIRIN 81 MG TABLET, ENT COATED PO SCH (10:33)
[2018-02-01] MEDS: SERTRALINE HCL 50 MG TABLET PO SCH (10:34)
[2018-02-01] MEDS: LACTOBACILLUS ACIDOPHILUS 250 MG TAB PO SCH ×2 (10:34→17:36)
[2018-02-01] MEDS: AZITHROMYCIN 250 MG TABLET PO SCH (10:35)
[2018-02-01] MEDS: CEFEPIME 2 GM/D5W RTU 2 GM/50 ML RTUPB IV SCH ×2 (10:36→21:32)
[2018-02-01] MEDS: FLUTICASONE/SALMETEROL DISKUS 500-50 MCG/DOSE IH SCH ×2 (10:36→21:30)
[2018-02-01] MEDS: ENOXAPARIN SODIUM INJ 40 MG/0.4 ML DISP.SYRIN SUBCUT SCH (10:37)
[2018-02-01] MEDS: TIOTROPIUM BROMIDE DPI 5 CAP/KIT (18 MCG/CAP) IH SCH (17:35)
[2018-02-01] MEDS: TRAZODONE HCL 50 MG TABLET PO SCH (21:31)
[2018-02-02] MEDS: METHYLPREDNISOLONE INJ 125 MG/2 ML SDV IV SCH (02:01)
[2018-02-02 05:09] LABS: ABSOLUTE LYMPHOCYTES (AUTO) 0.6 10^3/uL (0.5-4.7); ABSOLUTE MONOCYTES (AUTO) 0.7 10^3/uL (0.1-1.4); ABSOLUTE NEUT (AUTO) 7.1 10^3/uL (1.7-8.2); BASOPHILS % (AUTO) 0.1 % (0-2); EOSINOPHILS % (AUTO) 0.1 % (0-6); HEMATOCRIT 31.9 % (36.0-47.0); HEMOGLOBIN 10.7 g/dL (12.0-15.5); LYMPHOCYTES % (AUTO) 6.7 % (13-45); MEAN CORPUSCULAR HEMOGLOBIN 31.6 pg (27.0-33.4); MEAN CORPUSCULAR HGB CONC 33.5 g/dL (32.0-36.0); MEAN CORPUSCULAR VOLUME 94 fl (80-97); MONOCYTES % (AUTO) 8.8 % (3-13); PLATELET COUNT 176 10^3/uL (150-450); RED BLOOD COUNT 3.38 10^6/uL (3.72-5.28); RED CELL DISTRIBUTION WIDTH 14.6 % (11.5-14.0); SEGMENTED NEUTROPHILS % (AUTO) 84.3 % (42-78); TOTAL CELLS COUNTED % (AUTO) 100 %; WHITE BLOOD COUNT 8.4 10^3/uL (4.0-10.5)
[2018-02-02 05:32] LABS: ANION GAP 6 (5-19); BLOOD UREA NITROGEN 24 mg/dL (7-20); CALCIUM 8.6 mg/dL (8.4-10.2); CARBON DIOXIDE 35 mmol/L (22-30); CHLORIDE 96 mmol/L (98-107); GLUCOSE 98 mg/dL (75-110); POTASSIUM 4.3 mmol/L (3.6-5.0); SODIUM 137.2 mmol/L (137-145)
[2018-02-02] MEDS: LANSOPRAZOLE 30 MG TAB.RAP.DR PO SCH ×2 (06:00→18:08)
[2018-02-02] MEDS: IPRATROPIUM/ALBUTEROL 0.5-2.5 MG/3 ML AMPUL NEB PRN ×2 (08:09→19:51)
[2018-02-02] MEDS: ACETYLCYSTEINE 20% SOLN 800 MG/4 ML VIAL.NEB NEB SCH ×2 (08:09→19:51)
[2018-02-02] MEDS ORDERED: METHYLPREDNISOLONE INJ 125 MG/2 ML SDV IV SCH (10:06)
--- NOTE | 2018-02-02 10:26 | PDOC PROGRESS REPORT ---
Subjective Progress Note for:: 02/02/18 Subjective:: Patient is currently doing well Patient's denied any chest pain denied any shortness of the breath Recent also get the chest physical therapy Reason For Visit: ACUTE COPD EXACERBATION, ACUTE RESPIRATORY FAILURE Physical Exam Vital Signs: Temp Pulse Resp BP Pulse Ox 97.5 F 72 18 143/72 H 98 02/02/18 07:43 02/02/18 08:09 02/02/18 08:09 02/02/18 07:43 02/02/18 08:09 Intake & Output 02/01/18 02/02/18 02/03/18 06:59 06:59 06:59 Intake Total 410 708 Output Total 1137 1050 Balance -727 -342 Weight 67.4 kg 67.6 kg General appearance: PRESENT: no acute distress, well-developed, well-nourished Head exam: PRESENT: atraumatic, normocephalic Eye exam: PRESENT: conjunctiva pink, EOMI, PERRLA. ABSENT: scleral icterus Ear exam: PRESENT: normal external ear exam Mouth exam: PRESENT: moist, tongue midline Neck exam: PRESENT: full ROM. ABSENT: carotid bruit, JVD, lymphadenopathy, thyromegaly Respiratory exam: PRESENT: clear to auscultation esperanza Cardiovascular exam: PRESENT: RRR. ABSENT: diastolic murmur, rubs, systolic murmur Pulses: PRESENT: normal dorsalis pedis pul, +2 pedal pulses bilateral Vascular exam: PRESENT: normal capillary refill GI/Abdominal exam: PRESENT: normal bowel sounds, soft. ABSENT: distended, guarding, mass, organolmegaly, rebound, tenderness Rectal exam: PRESENT: deferred Extremities exam: ABSENT: pedal edema Musculoskeletal exam: PRESENT: ambulatory Neurological exam: PRESENT: alert, awake, oriented to person, oriented to place , oriented to time, oriented to situation, CN II-XII grossly intact. ABSENT: motor sensory deficit Psychiatric exam: PRESENT: appropriate affect, normal mood. ABSENT: homicidal ideation, suicidal ideation Skin exam: PRESENT: dry, intact, warm. ABSENT: cyanosis, rash Results Laboratory Results: 02/02/18 04:22 02/02/18 04:22 02/02/18 02/02/18 04:22 04:22 WBC 8.4 RBC 3.38 L Hgb 10.7 L Hct 31.9 L MCV 94 MCH 31.6 MCHC 33.5 RDW 14.6 H Plt Count 176 Seg Neutrophils % 84.3 H Lymphocytes % 6.7 L Monocytes % 8.8 Eosinophils % 0.1 Basophils % 0.1 Absolute Neutrophils 7.1 Absolute Lymphocytes 0.6 Absolute Monocytes 0.7 Absolute Eosinophils 0.0 Absolute Basophils 0.0 Sodium 137.2 Potassium 4.3 Chloride 96 L Carbon Dioxide 35 H Anion Gap 6 BUN 24 H Creatinine 0.48 L Est GFR ( Amer) > 60 Est GFR (Non-Af Amer) > 60 Glucose 98 Calcium 8.6 01/30/18 02:30 Clean Catch Midstream Urine Culture - Final Klebsiella Pneumoniae 01/30/18 01/30/18 01/30/18 01:39 01:39 07:31 Creatine Kinase 55 240 H CK-MB (CK-2) 1.66 Troponin I < 0.012 01/30/18 01/30/18 01/30/18 07:31 13:41 13:41 Creatine Kinase 215 H CK-MB (CK-2) 5.00 H 4.46 Troponin I < 0.012 < 0.012 Impressions: Chest X-Ray 01/29/18 20:04 IMPRESSION: Stable radiographic appearance of the chest demonstrating emphysematous changes. No acute findings. Chest CT 01/30/18 00:00 IMPRESSION: Emphysema. Patchy ground-glass opacities at the right lower lobe and airspace opacity at the left lower lobe, may be secondary to pneumonia or atelectasis. Trace pericardial effusion. Assessment & Plan - Diagnosis (1) COPD with acute exacerbation Is this a current diagnosis for this admission?: Yes Plan: Reduce the IV steroid (2) Respiratory distress Is this a current diagnosis for this admission?: Yes Plan: Currently all stable (3) Bacterial pneumonia Is this a current diagnosis for this admission?: Yes Plan: With start the patient on IV cefepime and azithromycin DC the Levaquin due to the patient have underlying significant seizures disorders (4) Chronic bronchiectasis not affecting current episode of care Is this a current diagnosis for this admission?: Yes Plan: Continues to current medication will get the sputum culture (5) Depression Qualifiers: Depression Type: major depressive disorder Major depression recurrence: recurrent Major depression episode severity: mild Is this a current diagnosis for this admission?: Yes (6) Hypertension Qualifiers: Hypertension type: essential hypertension Is this a current diagnosis for this admission?: Yes (7) Stroke Qualifiers: CVA mechanism: unspecified Is this a current diagnosis for this admission?: No (8) Seizure disorder Is this a current diagnosis for this admission?: Yes (9) Urinary tract infection Is this a current diagnosis for this admission?: Yes Plan: Continues to IV antibiotic - Time Time Spent with patient: 15-24 minutes Medications reviewed and adjusted accordingly: Yes Anticipated discharge: Home Within: within 24 hours - Inpatient Certification Medical Necessity: Need Close Monitoring Due to Risk of Patient Decompensation, Need for IV Antibiotics Post Hospital Care: D/C Environmental Project Manager Documentation - Plan Summary Plan Summary: As per discussed with Dr. Hernandez suggested continues to monitor before the discharge current medications
[2018-02-02] MEDS ORDERED: METHYLPREDNISOLONE INJ 40 MG/1 ML SDV IV ONE (10:30)
[2018-02-02] MEDS: LEVETIRACETAM 500 MG TABLET PO SCH ×2 (10:39→21:33)
[2018-02-02] MEDS: ASPIRIN 81 MG TABLET, ENT COATED PO SCH (10:39)
[2018-02-02] MEDS: LACTOBACILLUS ACIDOPHILUS 250 MG TAB PO SCH ×2 (10:39→18:08)
[2018-02-02] MEDS: AZITHROMYCIN 250 MG TABLET PO SCH (10:40)
[2018-02-02] MEDS: SERTRALINE HCL 50 MG TABLET PO SCH (10:40)
[2018-02-02] MEDS: ENOXAPARIN SODIUM INJ 40 MG/0.4 ML DISP.SYRIN SUBCUT SCH (10:42)
[2018-02-02] MEDS ORDERED: POLYETHYLENE GLYCOL 3350 POWDER 17 GM/1 PACKET PO PRN (10:50)
[2018-02-02] MEDS: FLUTICASONE/SALMETEROL DISKUS 500-50 MCG/DOSE IH SCH ×2 (10:57→21:36)
[2018-02-02] MEDS: CEFEPIME 2 GM/D5W RTU 2 GM/50 ML RTUPB IV SCH ×2 (10:57→21:34)
[2018-02-02] MEDS: DOCUSATE SODIUM 100 MG CAPSULE PO SCH (18:07)
[2018-02-02] MEDS: METHYLPREDNISOLONE INJ 40 MG/1 ML SDV IV SCH (18:09)
[2018-02-02] MEDS: TIOTROPIUM BROMIDE DPI 5 CAP/KIT (18 MCG/CAP) IH SCH (18:18)
[2018-02-02] MEDS: TRAZODONE HCL 50 MG TABLET PO SCH (21:33)
[2018-02-03] MEDS: METHYLPREDNISOLONE INJ 40 MG/1 ML SDV IV SCH ×2 (02:25→09:44)
[2018-02-03 05:22] LABS: ANION GAP 6 (5-19); BLOOD UREA NITROGEN 25 mg/dL (7-20); CALCIUM 8.5 mg/dL (8.4-10.2); CARBON DIOXIDE 36 mmol/L (22-30); CHLORIDE 95 mmol/L (98-107); GLUCOSE 95 mg/dL (75-110); POTASSIUM 4.7 mmol/L (3.6-5.0)
[2018-02-03] MEDS: LANSOPRAZOLE 30 MG TAB.RAP.DR PO SCH (05:24)
[2018-02-03] MEDS: IPRATROPIUM/ALBUTEROL 0.5-2.5 MG/3 ML AMPUL NEB PRN (08:45)
[2018-02-03] MEDS: ACETYLCYSTEINE 20% SOLN 800 MG/4 ML VIAL.NEB NEB SCH (08:45)
[2018-02-03] MEDS: CEFEPIME 2 GM/D5W RTU 2 GM/50 ML RTUPB IV SCH (09:43)
[2018-02-03] MEDS: SERTRALINE HCL 50 MG TABLET PO SCH (09:44)
[2018-02-03] MEDS: LEVETIRACETAM 500 MG TABLET PO SCH (09:44)
[2018-02-03] MEDS: ASPIRIN 81 MG TABLET, ENT COATED PO SCH (09:45)
[2018-02-03] MEDS: AZITHROMYCIN 250 MG TABLET PO SCH (09:45)
[2018-02-03] MEDS: FLUTICASONE/SALMETEROL DISKUS 500-50 MCG/DOSE IH SCH (09:45)
[2018-02-03] MEDS: LACTOBACILLUS ACIDOPHILUS 250 MG TAB PO SCH (09:45)
[2018-02-03] MEDS: DOCUSATE SODIUM 100 MG CAPSULE PO SCH (09:45)
[2018-02-03] MEDS: ENOXAPARIN SODIUM INJ 40 MG/0.4 ML DISP.SYRIN SUBCUT SCH (09:46)
--- NOTE | 2018-02-03 10:48 | PDOC DISCHARGE SUMMARY ---
General - Admit/Disc Date/PCP Admission Date/Primary Care Provider: 01/29/18 21:41 CHRISTIAN SMITH MD Discharge Date: 02/03/18 - Discharge Diagnosis (1) COPD with acute exacerbation Is this a current diagnosis for this admission?: Yes Summary: Currently all getting better this with the patient and the p.o. steroid and nebulizer treatments (2) Respiratory distress Is this a current diagnosis for this admission?: Yes Summary: Currently all resolved (3) Bacterial pneumonia Is this a current diagnosis for this admission?: Yes Summary: Streptococcus pneumonia continues the patient on p.o. antibiotic for 10 days (4) Chronic bronchiectasis not affecting current episode of care Is this a current diagnosis for this admission?: Yes Summary: Currently all stable (5) Depression Is this a current diagnosis for this admission?: Yes Summary: Clear all stable (6) Hypertension Is this a current diagnosis for this admission?: Yes Summary: Currently well controlled (7) Stroke Is this a current diagnosis for this admission?: No (8) Seizure disorder Is this a current diagnosis for this admission?: Yes Summary: Continues to Keppra (9) Urinary tract infection Is this a current diagnosis for this admission?: Yes Summary: Klebsiella organisms will continues to p.o. antibiotic - Additional Information Discharge Diet: As Tolerated Discharge Activity: Activity As Tolerated Prescriptions: Cefdinir [Omnicef 300 mg Capsule] 1 cap PO BID #20 capsule Prednisone [Deltasone 10 mg Tablet] 10 mg PO ASDIR PRN #21 tablet PRN Reason: Home Medications: Fluticasone/Salmeterol [Advair 500-50 Diskus 14 Dose/Diskus] 1 puff IH Q12 08/06 Levetiracetam [Keppra 500 mg Tablet] 500 mg PO Q12 08/06/17 Omeprazole 40 mg PO Q12 08/06/17 Sertraline HCl [Zoloft] 100 mg PO DAILY 08/06/17 Tiotropium Gifford [Spiriva Handihaler 5 Cap/Kit (18 Mcg/Cap)] 1 puff IH DAILY 08/06/17 Trazodone HCl [Desyrel] 150 mg PO QHS 08/06/17 Aspirin [Aspirin EC] 81 mg DAILY 01/30/18 Atorvastatin Calcium [Lipitor 40 mg Tablet] 40 mg PO QHS 01/30/18 Atorvastatin Calcium [Lipitor 80 mg Tablet] 80 mg QHS 01/30/18 Diclofenac Sodium [Voltaren] 1 gm QIDP PRN 01/30/18 Ipratropium Gifford [Atrovent 0.02% Neb 0.5 mg/2.5 ml Ampul] 0.5 mg NEB Q6HP PRN 01/30/18 Lactobacillus Acidophilus [Probiotic] 1 tab BID 01/30/18 Trazodone HCl 150 mg PO 01/30/18 Cefdinir [Omnicef 300 mg Capsule] 1 cap PO BID #20 capsule 02/03/18 Prednisone [Deltasone 10 mg Tablet] 10 mg PO ASDIR PRN #21 tablet 02/03/18 History of Present Illness History of Present Illness: ANNA AMEZCUA is a 82 year old female This is a 82-year-old female admitting because of the shortness of the breath respiratory distressed in IMCU and started on IV antibiotic IV steroid for the COPD and a pneumonia Hospital Course Hospital Course: This 82-year-old female with the multiple medical problem including the oxygen dependent COPD chronic bronchiectasis and multiple other comorbidity admitting in the hospital because of the COPD acute exacerbations in the pneumoniaAnd a urinary tract infections Patients treated with IV antibiotic and IV steroids and Dr. Hernandez was consulted Patient switch to the p.o. medications and patients expressed to go home Discussed with the patient and the family at this point to start on the p.o. medication and p.o. steroid and patient have all this nebulizers and oxygen at [facility] and patient have a good family support at [facility] Discussed with the patient and the family if increasing any fever any chest pain any shortness of the breath bring back to the hospital otherwise following a one-week in office All cultures reviewed and appropriate adjust the p.o. medications Physical Exam Vital Signs: Temp Pulse Resp BP Pulse Ox 98.1 F 71 20 124/67 99 02/03/18 08:00 02/03/18 08:45 02/03/18 08:45 02/03/18 08:00 02/03/18 08:45 Intake & Output 02/02/18 02/03/18 02/04/18 06:59 06:59 06:59 Intake Total 708 8385 Output Total 1050 2400 Balance -342 -305 Weight 67.6 kg 69.6 kg General appearance: PRESENT: no acute distress, well-developed, well-nourished Head exam: PRESENT: atraumatic, normocephalic Eye exam: PRESENT: conjunctiva pink, EOMI, PERRLA. ABSENT: scleral icterus Ear exam: PRESENT: normal external ear exam Mouth exam: PRESENT: moist, tongue midline Neck exam: PRESENT: full ROM. ABSENT: carotid bruit, JVD, lymphadenopathy, thyromegaly Respiratory exam: PRESENT: clear to auscultation esperanza Cardiovascular exam: PRESENT: RRR. ABSENT: diastolic murmur, rubs, systolic murmur Pulses: PRESENT: normal dorsalis pedis pul, +2 pedal pulses bilateral Vascular exam: PRESENT: normal capillary refill GI/Abdominal exam: PRESENT: normal bowel sounds, soft. ABSENT: distended, guarding, mass, organolmegaly, rebound, tenderness Rectal exam: PRESENT: deferred Extremities exam: ABSENT: pedal edema Musculoskeletal exam: PRESENT: ambulatory Neurological exam: PRESENT: alert, awake, oriented to person, oriented to place , oriented to time, oriented to situation. ABSENT: motor sensory deficit Psychiatric exam: PRESENT: appropriate affect, normal mood. ABSENT: homicidal ideation, suicidal ideation Skin exam: PRESENT: dry, intact, warm. ABSENT: cyanosis, rash Results Laboratory Results: 02/02/18 04:22 02/03/18 03:58 02/03/18 03:58 Sodium 137.0 Potassium 4.7 Chloride 95 L Carbon Dioxide 36 H Anion Gap 6 BUN 25 H Creatinine 0.45 L Est GFR ( Amer) > 60 Est GFR (Non-Af Amer) > 60 Glucose 95 Calcium 8.5 01/30/18 01/30/18 01/30/18 01:39 01:39 07:31 Creatine Kinase 55 240 H CK-MB (CK-2) 1.66 Troponin I < 0.012 01/30/18 01/30/18 01/30/18 07:31 13:41 13:41 Creatine Kinase 215 H CK-MB (CK-2) 5.00 H 4.46 Troponin I < 0.012 < 0.012 Impressions: Chest X-Ray 01/29/18 20:04 IMPRESSION: Stable radiographic appearance of the chest demonstrating emphysematous changes. No acute findings. Chest CT 01/30/18 00:00 IMPRESSION: Emphysema. Patchy ground-glass opacities at the right lower lobe and airspace opacity at the left lower lobe, may be secondary to pneumonia or atelectasis. Trace pericardial effusion. Qualifiers - * PATIENT BEING DISCHARGED WITH ANY OF THE FOLLOWING DIAGNOSIS: No VTE patient discharged on overlapping Therapy?: Yes Plan Time Spent: Greater than 30 Minutes - Patient's discharge home with a stable condition and following office in 1 week and follow with the pulmonary
[2018-02-03 11:19] VITALS: BP 144/66
== END 2018-02-03 12:09 | disposition home or self-care (01) | DRG 190 ==
LOC: ER 19:10 → EH 21:41 → 3N 01-30
PROVIDERS: ADMIT Internal Medicine; ATTEND Family Medicine
DX: J44.1 Chronic obstructive pulmonary disease with (acute) exacerbation (principal); J13 Pneumonia due to Streptococcus pneumoniae; N39.0 Urinary tract infection, site not specified; J44.0 Chronic obstructive pulmonary disease with (acute) lower respiratory infection; R06.03 Acute respiratory distress; I10 Essential (primary) hypertension; B96.1 Klebsiella pneumoniae [K. pneumoniae] as the cause of diseases classified elsewhere; G40.909 Epilepsy, unspecified, not intractable, without status epilepticus; F32.9 Major depressive disorder, single episode, unspecified; Z99.81 Dependence on supplemental oxygen; Z86.73 Personal history of transient ischemic attack (TIA), and cerebral infarction without residual deficits; Z79.82 Long term (current) use of aspirin; Z79.51 Long term (current) use of inhaled steroids; Z79.899 Other long term (current) drug therapy
CPT/HCPCS: 36415; 71045; 71250; 80048; 80053; 80061; 80076; 80307; 81001; 82140; 82150; 82550; 82553; 82803; 83036; 83605; 83690; 83735; 83880; 84100; 84439; 84443; 84484; 85025; 85610; 85730; 87040; 87070; 87077; 87086; 87088; 87186; 87205; 93005; 93010; 94640; 94660; 94667; 94668; 96365; 96375; 99291; G8978-GP; G8979-GP; J0692; J1650; J1956; J2920; J2930; J3475; J3490; J7620

== ENCOUNTER → 2018-02-25 | Outpatient (CLI) | payer MEDICARE, OTHER ==
--- NOTE | 2018-02-25 11:10 | WOMENS IMAGING REPORT ---
EXAM DESCRIPTION: 3D SCREENING MAMMO BILAT COMPLETED DATE/TIME: 02/25/2018 10:04 am REASON FOR STUDY: BILATERAL SCREENING MAMMO 3D/Z12.31 Z12.31 ENCNTR SCREEN MAMMOGRAM FOR MALIGNANT NEOPLASM OF CHRISTINE COMPARISON: 2013 to 2016 TECHNIQUE: Standard craniocaudal and mediolateral oblique views of each breast recorded using digita l acquisition and breast tomosynthesis. LIMITATIONS: None. FINDINGS: No masses, calcifications or architectural distortion. No areas of suspicion. Read with the assistance of CAD. .[facility] - R2 Cenova Version 1.3 .[facility] - R2 Cenova Version 1.3 .[facility] - R2 Cenova Version 2.4 .[facility] [place] - R2 Cenova Version 2.4 .[facility] - R2 Spacecraft Systems Engineer Version 9.2 IMPRESSION: NORMAL MAMMOGRAM. BIRADS 1. BREAST DENSITY: b. There are scattered areas of fibroglandular density. BIRAD: 1 NEGATIVE RECOMMENDATION: ROUTINE SCREENING COMMENT: The patient has been notified of the results by letter per SA requirements. Additional no tification policies are in place for contacting patient with suspicious or incomplete findings. Quality ID #[id number]: The [employer] recommends an annual screening mammogram for women aged 40 years or over. This facility utilizes a reminder system to ensure that all patients receive reminder letters, and/or direct phone calls for appointments. This includes reminders for routine scr eening mammograms, diagnostic mammograms, or other Breast Imaging Interventions when appropriate. Th is patient will be placed in the appropriate reminder system. The [employer] (ACR) has developed recommendations for screening MRI of the breast s in certain patient populations, to be used in conjunction with mammography. Breast MRI surveillanc e may be appropriate for women with more than 20% lifetime risk of developing breast cancer as deter mined by genetic testing, significant family history of the disease, or history of mantle radiation f or Hodgkins Disease. ACR Practice Guidelines 2008. DBT Technology DBT is a type of tomographic mammography. With conventional mammography, overlapping breast tissue ma y make lesions difficult to detect, even with good compression. DBT uses an x-ray tube that rotates a round the breast, taking images at different angles. These images are then combined to create thin sl ices of the breast that the radiologist can view as a 3D reconstruction. The Perkle unit can perform full-field digital mammograms (2D imaging); or DBT (3D imaging); or both, in a combination mode that quickly performs both the mammogram and the tomosynthesis scan while the breast is still compressed. PQRS 6045F: Fluoroscopic imaging is not utilized for breast tomosynthesis. TECHNICAL DOCUMENTATION: FINDING NUMBER: (1) ASSESSMENT: (1) JOB ID: [id number] [employer]- All Rights Reserved Reading location - IP/workstation name: [facility]
== END ==
LOC: WI 09:22
PROVIDERS: ATTEND Physician Assistant
DX: Z12.31 Encounter for screening mammogram for malignant neoplasm of breast (principal)
CPT/HCPCS: 77063; 77067

== ENCOUNTER 2018-04-15 11:08 | Emergency (ER) | payer MEDICARE, OTHER ==
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
[2018-04-15 12:49] VITALS: BP 146/68
== END 2018-04-15 12:49 | disposition home or self-care (01) ==
LOC: ER 11:08
DX: J44.9 Chronic obstructive pulmonary disease, unspecified (principal); Z99.81 Dependence on supplemental oxygen; R06.02 Shortness of breath; I10 Essential (primary) hypertension; Z65.5 Exposure to disaster, war and other hostilities; Z88.3 Allergy status to other anti-infective agents; Z88.6 Allergy status to analgesic agent; Z91.040 Latex allergy status; Z88.1 Allergy status to other antibiotic agents
CPT/HCPCS: 99284

== ENCOUNTER → 2018-10-05 | Outpatient (CLI) | payer MEDICARE, OTHER ==
[2018-10-05 08:19] LABS: ALANINE AMINOTRANSFERASE 36 U/L (9-52); ALKALINE PHOSPHATASE 66 U/L (38-126); ASPARTATE AMINO TRANSFERASE 35 U/L (14-36); BILIRUBIN,DIRECT 0.1 mg/dL (0.0-0.4); BILIRUBIN,TOTAL 0.3 mg/dL (0.2-1.3); CHOLESTEROL 121.18 mg/dL (0-200); TOTAL PROTEIN 6.5 g/dL (6.3-8.2); TRIGLYCERIDES 45 mg/dL (<150)
[2018-10-05 08:31] LABS: DIRECT LDL 52 mg/dL (<100)
== END ==
LOC: LAB 07:27
PROVIDERS: ATTEND Internal Medicine Cardiovascular Disease
DX: E78.00 Pure hypercholesterolemia, unspecified (principal); R94.5 Abnormal results of liver function studies; I50.32 Chronic diastolic (congestive) heart failure; R06.02 Shortness of breath
CPT/HCPCS: 36415; 80061; 80076; 83880

== ENCOUNTER → 2019-01-15 | Outpatient (CLI) | payer MEDICARE, OTHER ==
[2019-01-15 08:37] LABS: ALANINE AMINOTRANSFERASE 31 U/L (9-52); ALBUMIN 3.8 g/dL (3.5-5.0); ALKALINE PHOSPHATASE 58 U/L (38-126); ANION GAP 7 (5-19); ASPARTATE AMINO TRANSFERASE 38 U/L (14-36); BILIRUBIN,DIRECT 0.2 mg/dL (0.0-0.4); BILIRUBIN,TOTAL 0.3 mg/dL (0.2-1.3); BLOOD UREA NITROGEN 19 mg/dL (7-20); CARBON DIOXIDE 33 mmol/L (22-30); CHLORIDE 96 mmol/L (98-107); CHOLESTEROL 161.61 mg/dL (0-200); GLUCOSE 93 mg/dL (75-110); TOTAL PROTEIN 6.4 g/dL (6.3-8.2); TRIGLYCERIDES 52 mg/dL (<150)
[2019-01-15 08:48] LABS: DIRECT LDL 84 mg/dL (<100)
== END ==
LOC: LAB 08:02
PROVIDERS: ATTEND Internal Medicine Cardiovascular Disease
DX: I11.0 Hypertensive heart disease with heart failure (principal); I50.32 Chronic diastolic (congestive) heart failure; E78.00 Pure hypercholesterolemia, unspecified; Z79.899 Other long term (current) drug therapy
CPT/HCPCS: 36415; 80048; 80061; 80076; 83735; 83880